=== PATIENT | male | born 1965 | race African-American/Black ===

== ENCOUNTER 2016-08-22 12:40 | Inpatient (IN) | payer OTHER ==
[2016-08-22 15:32] VITALS: BMI 35.2
--- NOTE | 2016-08-22 17:47 | HP ---
CIWA Score - CIWA Score Nausea/Vomitin-Mild Nausea/No Vomiting Muscle Tremors: 4-Moderate,w/Arms Extend Anxiety: 4-Mod. Anxious/Guarded Agitation: 4-Moderately Restless Paroxysmal Sweats: 2 Orientation: 3-Disoriented Date>2 days Tacttile Disturbances: 0-None Auditory Disturbances: 0-None Visual Disturbances: 0-None Headache: 0-None Present CIWA-Ar Total Score: 18 Admission ROS BHS - HPI Chief Complaint: withdrawal sx Allergies/Adverse Reactions: Allergies Allergy/AdvReac Type Severity Reaction Status Date / Time No Known Allergies Allergy Verified 08/22/16 18:19 History of Present Illness: 51 years old male with long history of alcohol dependence, has hypertension arthritis both knees ambulate with walker and depression is admitted to detox Exam Limitations: No Limitations - Ebola screening Have you traveled outside of the country in the last 21 days: No Have you had contact with anyone from an Ebola affected area: No Have you been sick,other than usual withdrawal symptoms: No Do you have a fever: No - Review of Systems Constitutional: Chills, Changes in sleep, Weight Stable EENT: reports: Other (need eye glasses) Respiratory: reports: SOB with Exertion, Productive cough (white) Cardiac: reports: No Symptoms Reported GI: reports: Diarrhea, Nausea, Poor Fluid Intake, Abdominal cramping : reports: No Symptoms Reported Musculoskeletal: reports: Back Pain, Joint Pain, Muscle Pain, Muscle Weakness ( legs), Neck Pain Integumentary: reports: No Symptoms Reported Neuro: reports: Seizure (last episode 06/2016, treated at [facility], treated with unknown name medication), Tremors Endocrine: reports: No Symptoms Reported Hematology: reports: No Symptoms Reported Psychiatric: reports: Judgement Intact, Depressed Other Systems: Reviewed and Negative Patient History - Patient Medical History Hx Anemia: No Hx Asthma: No Hx Chronic Obstructive Pulmonary Disease (COPD): No Hx Cancer: No Hx Cardiac Disorders: No Hx Congestive Heart Failure: No Hx Hypertension: Yes Hx Hypercholesterolemia: No Hx Pacemaker: No HX Cerebrovascular Accident: No Hx Seizures: No Hx Dementia: No Hx Diabetes: No Hx Gastrointestinal Disorders: No Hx Liver Disease: No Hx Genitourinary Disorders: No Hx Sexually Transmitted Disorders: No Hx Renal Disease (ESRD): No Hx Thyroid Disease: No Hx Human Immunodeficiency Virus (HIV): No (last neg 3 mos ago) Hx Hepatitis C: No Hx Depression: Yes Hx Suicide Attempt: No Hx Bipolar Disorder: No Hx Schizophrenia: No - Patient Surgical History Past Surgical History: No - PPD History Previous Implant?: Yes Documented Results: Negative w/proof Implanted On Prior [facility] Admission?: Yes Date: 05/11/15 PPD to be Administered?: Yes - Smoking Cessation Smoking history: Never smoked Have you smoked in the past 12 months: No Hx Chewing Tobacco Use: No Initiated information on smoking cessation: No - Substance & Tx. History Hx Alcohol Use: Yes Hx Substance Use: No Substance Use Type: Alcohol Hx Substance Use Treatment: Yes - Substances Abused Alcohol Route: Oral Frequency: Daily Amount used: 4 pints volka Age of first use: 13 Date of Last Use: 08/22/16 Family Disease History - Family Disease History Family Disease History: Other: Father (no contact) Admission Physical Exam BHS - Vital Signs Vital Signs: Vital Signs - 24 hr 08/22/16 15:28 Temperature 97.8 F Pulse Rate 103 H Respiratory 20 Rate Blood Pressure 168/124 - Physical General Appearance: Yes: Appropriately Dressed, Moderate Distress, Obese, Tremorous, Irritable, Sweating, Anxious HEENTM: Yes: Hearing grossly Normal, Normal ENT Inspection, Normocephalic, Normal Voice Respiratory: Yes: Chest Non-Tender, Lungs Clear, Normal Breath Sounds, No Respiratory Distress, No Accessory Muscle Use Neck: Yes: Supple, Trachea in good position Breast: Yes: Breasts Symetrical Cardiology: Yes: Regular Rhythm, S1, S2, Tachycardia Abdominal: Yes: Non Tender, Soft Genitourinary: Yes: Hesitency, Dribblimg (nephrology appointment 08/2016) Back: Yes: Normal Inspection Musculoskeletal: Yes: Gait Steady (walker), Muscle Pain (both knee), Muscle weakness (left knee) Extremities: Yes: Non-Tender, Tremors, Swelling (left knee - knee brace) Neurological: Yes: Alert, Normal Response, Depressed Affect Integumentary: Yes: Warm Lymphatic: Yes: Within Normal Limits - Diagnostic (1) Arthritis of both knees Current Visit: Yes Status: Chronic Comment: x3 years (2) HTN (hypertension) Current Visit: Yes Status: Acute Qualifiers: Hypertension type: essential hypertension Qualified Code(s): I10 - Essential (primary) hypertension (3) Alcohol dependence with uncomplicated withdrawal Current Visit: Yes Status: Acute (4) Seizure disorder Current Visit: Yes Status: Acute (5) Hyperlipidemia Current Visit: Yes Status: Acute Qualifiers: Hyperlipidemia type: pure hypercholesterolemia Qualified Code(s): E78.00 - Pure hypercholesterolemia, unspecified; E78.0 - Pure hypercholesterolemia (6) Depression (emotion) Current Visit: Yes Status: Suspected Qualifiers: Depression Type: dysthymia Qualified Code(s): F34.1 - Dysthymic disorder (7) Walker as ambulation aid Current Visit: Yes Status: Chronic Comment: x 3 years Cleared for Admission S - Detox or Rehab [facility] Level of Care: Medically Managed Detox Regimen/Protocol: Librium [facility] Breath Alcohol Content Breath Alcohol Content: 0 Urine Drug Screen - Results Drug Screen Negative: Yes
[2016-08-22] MEDS ORDERED: LOPERAMIDE HCL 2 MG CAPSULE PO PRN (17:52)
[2016-08-22] MEDS ORDERED: ACETAMINOPHEN 325 MG TABLET (FP) PO PRN (17:52)
[2016-08-22] MEDS ORDERED: hydrOXYzine PAMOATE 50 MG CAPSULE (FP) PO PRN (17:52)
[2016-08-22] MEDS ORDERED: chlordiazePOXIDE HCL 25 MG CAPSULE PO PRN (17:52)
[2016-08-22] MEDS ORDERED: diphenhydrAMINE HCL 50 MG CAPSULE PO PRN (17:52)
[2016-08-22] MEDS ORDERED: MAG HYDROX/AL HYDROX/SIMETH 30 ML UNIT-DOSE CUP PO PRN (17:52)
[2016-08-22] MEDS ORDERED: MAGNESIUM CITRATE 300 ML BOTTLE PO PRN (17:52)
[2016-08-22] MEDS ORDERED: IBUPROFEN 400 MG TABLET (FP) PO PRN (17:52)
[2016-08-22] MEDS ORDERED: guaiFENesin/D-METHORPHAN HB 10 ML UNIT-DOSE CUPS PO PRN (17:52)
[2016-08-22] MEDS ORDERED: MAGNESIUM HYDROX 2400MG/30ML ORAL SUSPENSION 30 ML CUP PO PRN (17:52)
[2016-08-22] MEDS ORDERED: P-EPHED 60MG/TRIPROLIDI 2.5MG TABLET PO PRN (17:52)
[2016-08-22] MEDS ORDERED: MENTHOL/PHENOL 1 EACH UD MM PRN (17:52)
[2016-08-22] MEDS ORDERED: cloNIDine HCL 0.1 MG TABLET PO PRN (18:07)
[2016-08-22] MEDS ORDERED: chlordiazePOXIDE HCL 25 MG CAPSULE PO ONE (19:00)
[2016-08-22] MEDS: amLODIPine BESYLATE 10 MG TABLET (FP) PO SCH (19:28)
[2016-08-22] MEDS: FLUTICASONE PROP 0.05% 16 GM NASAL SPRAY NS SCH (19:30)
[2016-08-22] MEDS: ATORVASTATIN CA 10 MG TABLET (FP) PO SCH (22:57)
[2016-08-22] MEDS: THIAMINE HCL 100 MG TABLET (FP) PO SCH (22:57)
[2016-08-22] MEDS: chlordiazePOXIDE HCL 25 MG CAPSULE PO SCH (22:57)
[2016-08-22] MEDS: levETIRAcetam 500 MG TABLET (FP) PO SCH (22:57)
[2016-08-22 23:28] LABS: URINE APPEARANCE CLEAR; URINE BILIRUBIN NEGATIVE (NEGATIVE); URINE BLOOD NEGATIVE (NEGATIVE); URINE COLOR YELLOW; URINE GLUCOSE (UA) 1+ (NEGATIVE); URINE KETONE NEGATIVE (NEGATIVE); URINE LEUK ESTERASE NEGATIVE (NEGATIVE); URINE NITRITE NEGATIVE (NEGATIVE); URINE UROBILINOGEN NEGATIVE E.U./dl (0.2-1.0)
[2016-08-23 00:02] LABS: URINE PROTEIN 1+ (NEGATIVE)
[2016-08-23 00:06] LABS: URINE MUCUS RARE; URINE RBC 1 /hpf (0-3); URINE WBC 3 /hpf (3-5)
[2016-08-23] MEDS: chlordiazePOXIDE HCL 25 MG CAPSULE PO SCH ×4 (07:07→22:11)
[2016-08-23] MEDS: levETIRAcetam 500 MG TABLET (FP) PO SCH ×2 (10:13→22:10)
[2016-08-23] MEDS: PRENATAL VITAMINS W/ FOLIC ACID TABLET (FP) PO SCH (10:13)
[2016-08-23] MEDS: amLODIPine BESYLATE 10 MG TABLET (FP) PO SCH (10:13)
[2016-08-23] MEDS: FLUTICASONE PROP 0.05% 16 GM NASAL SPRAY NS SCH (10:14)
[2016-08-23 10:21] LABS: MCH 27.5 pg (25.7-33.7); MCHC 32.1 g/dl (32.0-35.9); MEAN CELL VOLUME 85.5 fl (80-96); MEAN PLT VOLUME 9.5 fl (7.5-11.1); PLATELET COUNT 181 K/MM3 (134-434); RDW 15.7 % (11.9-15.9); WHITE BLOOD COUNT 5.4 K/mm3 (4.0-10.0)
[2016-08-23 10:58] LABS: ALBUMIN 3.9 g/dl (3.4-5.0); CALCIUM 8.8 mg/dL (8.5-10.1)
[2016-08-23 11:03] LABS: ALK PHOS 72 U/L (45-117); ANION GAP 11 (8-16); BILIRUBIN,TOTAL 0.6 mg/dL (0.2-1.0); CO2 27 mmol/L (21-32); CREATININE 1.1 mg/dL (0.7-1.3); GLUCOSE,RANDOM 134 mg/dL (74-106); SGOT/AST 29 U/L (15-37); SGPT/ALT 38 U/L (12-78); TOT PROT 7.8 g/dl (6.4-8.2)
[2016-08-23] MEDS ORDERED: POTASSIUM CHLORIDE TABS 20 MEQ TABLET.ER (FP) PO ONE (12:11)
--- NOTE | 2016-08-23 12:11 | PN ---
S CIWA - CIWA Score Nausea/Vomitin Muscle Tremors: 3 Anxiety: 3 Agitation: 3 Paroxysmal Sweats: 1-Minimal Palms Moist Orientation: 0-Oriented Tacttile Disturbances: 1-Very Mild Itch/Numbness Auditory Disturbances: 1-Very Mild Visual Disturbances: 1-Very Mild Sensitivity Headache: 2-Mild CIWA-Ar Total Score: 18 BHS Progress Note (SOAP) Subjective: ALERT,IRRITABLE,ANXIOUS,INTERRUPTED SLEEP,TREMOR Objective: 08/23/16 12:07 Vital Signs Temperature 97.5 F L 08/23/16 09:58 Pulse Rate 93 H 08/23/16 09:58 Respiratory Rate 20 08/23/16 09:58 Blood Pressure 124/90 08/23/16 09:58 O2 Sat by Pulse Oximetry (%) EKG NSR RATE 85 NO CHEST PAIN,NO SOB,NO DIZZINESS Laboratory Last Values WBC 5.4 K/mm3 (4.0-10.0) D 08/23/16 07:50 RBC 5.58 M/mm3 (4.00-5.60) 08/23/16 07:50 Hgb 15.3 GM/dL (11.7-16.9) 08/23/16 07:50 Hct 47.7 % (35.4-49) 08/23/16 07:50 MCV 85.5 fl (80-96) 08/23/16 07:50 MCHC 32.1 g/dl (32.0-35.9) 08/23/16 07:50 RDW 15.7 % (11.9-15.9) 08/23/16 07:50 Plt Count 181 K/MM3 (134-434) D 08/23/16 07:50 MPV 9.5 fl (7.5-11.1) 08/23/16 07:50 Sodium 137 mmol/L (136-145) 08/23/16 07:50 Potassium 3.4 mmol/L (3.5-5.1) L 08/23/16 07:50 Chloride 99 mmol/L (98-107) 08/23/16 07:50 Carbon Dioxide 27 mmol/L (21-32) 08/23/16 07:50 Anion Gap 11 (8-16) 08/23/16 07:50 BUN 9 mg/dL (7-18) D 08/23/16 07:50 Creatinine 1.1 mg/dL (0.7-1.3) D 08/23/16 07:50 Creat Clearance w eGFR > 60 (>60) 08/23/16 07:50 Random Glucose 134 mg/dL (74-106) H D 08/23/16 07:50 Calcium 8.8 mg/dL (8.5-10.1) 08/23/16 07:50 Total Bilirubin 0.6 mg/dL (0.2-1.0) 08/23/16 07:50 AST 29 U/L (15-37) 08/23/16 07:50 ALT 38 U/L (12-78) 08/23/16 07:50 Alkaline Phosphatase 72 U/L (45-117) 08/23/16 07:50 Total Protein 7.8 g/dl (6.4-8.2) 08/23/16 07:50 Albumin 3.9 g/dl (3.4-5.0) 08/23/16 07:50 Urine Color Yellow 08/22/16 19:34 Urine Appearance Clear 08/22/16 19:34 Urine pH 7.0 (5.0-8.0) 08/22/16 19:34 Ur Specific [place] 1.018 (1.001-1.035) 08/22/16 19:34 Urine Protein 1+ (NEGATIVE) H 08/22/16 19:34 Urine Glucose (UA) 1+ (NEGATIVE) H 08/22/16 19:34 Urine Ketones Negative (NEGATIVE) 08/22/16 19:34 Urine Blood Negative (NEGATIVE) 08/22/16 19:34 Urine Nitrite Negative (NEGATIVE) 08/22/16 19:34 Urine Bilirubin Negative (NEGATIVE) 08/22/16 19:34 Urine Urobilinogen Negative E.U./dl (0.2-1.0) 08/22/16 19:34 Ur Leukocyte Esterase Negative (NEGATIVE) 08/22/16 19:34 Urine RBC 1 /hpf (0-3) 08/22/16 19:34 Urine WBC 3 /hpf (3-5) 08/22/16 19:34 Ur Epithelial Cells Rare /hpf (FEW) 08/22/16 19:34 Urine Mucus Rare 08/22/16 19:34 LABS PENDING Assessment: 08/23/16 12:09 WITHDRAWAL SYMPTOM Plan: CONTINUE DETOX,KDUR 20 MEQ PO DAILY K IS 3.4,INITIAL GLUCOSE IS 134,BGM MONITORING
--- NOTE | 2016-08-23 12:22 | CONSULT ---
[facility] Psychiatric Consult - Data Date of interview: 08/23/16 Admission source: [facility] Identifying data: Readmission to [facility] for this 51 y/o AA male seeking detox treatment for alcohol dependence.Patient is ,a father of three, domiciled,disabled and awaiting approval for SSI benefits. Substance Abuse History: - Smoking Cessation. Smoking history: Never smoked. Have you smoked in the past 12 months: No. Hx Chewing Tobacco Use: No. Initiated information on smoking cessation: No. - Substance & Tx. History. Hx Alcohol Use: Yes. Hx Substance Use: No. Substance Use Type: Alcohol. Hx Substance Use Treatment: Yes. - Substances Abused. Alcohol. Route: Oral. Frequency: Daily. Amount used: 4 pints volka. Age of first use: 13. Date of Last Use: 08/22/16 Medical History: Hypertension,seizure disorder,pre-diabetes,dyslipidemia and severe arthritis (both knees).Patient uses a walker for ambulation. Psychiatric History: No reported history of psychiatric hospitalizations.Diagnosed with MDD.Prescribed risperdal 2 mg/hs + zoloft 50 mg/ day (verified by pharmacy claims of 06/23/16 @ [employer]).Outpatient psychiatric services are rendered at the [facility] in [facility].Mr Christopher is a clear/reliable historian.Denies history of suicide attempts. Physical/Sexual Abuse/Trauma History: Patient denies. Additional Comment: Drug Screen Negative: Yes .Noted. Mental Status Exam - Mental Status Exam Alert and Oriented to: Time, Place, Person Cognitive Function: Good Patient Appearance: Well Groomed (short stature,obese) Mood: Hopeful, Euthymic Affect: Appropriate, Normal Range Patient Behavior: Fatigued, Appropriate, Cooperative Speech Pattern: Clear, Appropriate Voice Loudness: Normal Thought Process: Goal Oriented Thought Disorder: Not Present Hallucinations: Denies Suicidal Ideation: Denies Homicidal Ideation: Denies Insight/Judgement: Fair Sleep: Fair Appetite: Good Gait/Station: Other (uses a walker to move around.) Psychiatric Findings - Problem List ([place] 1, 2,3) (1) Alcohol dependence with uncomplicated withdrawal Current Visit: Yes Status: Acute (2) MDD (major depressive disorder) Current Visit: Yes Status: Chronic (3) HTN (hypertension) Current Visit: Yes Status: Chronic Qualifiers: Hypertension type: essential hypertension Qualified Code(s): I10 - Essential (primary) hypertension (4) Hyperlipidemia Current Visit: Yes Status: Chronic Qualifiers: Hyperlipidemia type: pure hypercholesterolemia Qualified Code(s): E78.00 - Pure hypercholesterolemia, unspecified; E78.0 - Pure hypercholesterolemia (5) Seizure disorder Current Visit: Yes Status: Chronic (6) Arthritis of both knees Current Visit: Yes Status: Chronic Comment: x3 years (7) Abnormal gait Current Visit: Yes Status: Chronic (8) Walker as ambulation aid Current Visit: Yes Status: Chronic Comment: x 3 years - Initial Treatment Plan Initial Treatment Plan: Psychoeducation.Detoxification.Medications : zoloft 50 mg po daily + risperdal 1 mg po bid.Side effects/benefits discussed with the patient.Made aware of risk of EPS (akathisia,akinesia,dystonia,dyskinesias), neuroleptic malignant syndrome,endocrine complications (sexual impotence, decreased libido,gynecomastia,galactorrhea) possible with the use of risperdal and suicidal ideation,sexual dysfunction (zoloft).Patient reports no prior adverse events from taking these two drugs.Consent (verbal) provided by patient.Observation.
[2016-08-23] MEDS: ATORVASTATIN CA 10 MG TABLET (FP) PO SCH (22:10)
[2016-08-23] MEDS: THIAMINE HCL 100 MG TABLET (FP) PO SCH (22:10)
[2016-08-23] MEDS: risperiDONE 1 MG TABLET (FP) PO SCH (22:13)
[2016-08-24] MEDS: chlordiazePOXIDE HCL 25 MG CAPSULE PO SCH ×3 (05:01→17:29)
[2016-08-24] MEDS: FLUTICASONE PROP 0.05% 16 GM NASAL SPRAY NS SCH (11:45)
[2016-08-24] MEDS: POTASSIUM CHLORIDE TABS 20 MEQ TABLET.ER (FP) PO SCH (11:46)
[2016-08-24] MEDS: PRENATAL VITAMINS W/ FOLIC ACID TABLET (FP) PO SCH (11:46)
[2016-08-24] MEDS: levETIRAcetam 500 MG TABLET (FP) PO SCH ×2 (11:46→22:20)
[2016-08-24] MEDS: risperiDONE 1 MG TABLET (FP) PO SCH ×2 (11:47→22:20)
[2016-08-24] MEDS: amLODIPine BESYLATE 10 MG TABLET (FP) PO SCH (11:47)
[2016-08-24] MEDS: SERTRALINE HCL 50 MG TABLET (FP) PO SCH (11:47)
--- NOTE | 2016-08-24 12:46 | PN ---
S CIWA - CIWA Score Nausea/Vomitin Muscle Tremors: 3 Anxiety: 3 Agitation: 2 Paroxysmal Sweats: 1-Minimal Palms Moist Orientation: 0-Oriented Tacttile Disturbances: 1-Very Mild Itch/Numbness Auditory Disturbances: 1-Very Mild Visual Disturbances: 1-Very Mild Sensitivity Headache: 2-Mild CIWA-Ar Total Score: 17 BHS Progress Note (SOAP) Subjective: ALERT,IRRITABLE,ANXIOUS,INTERRUPTED SLEEP,PAIN IN THE BODY Objective: 08/24/16 12:44 Vital Signs Temperature 97.5 F L 08/24/16 06:09 Pulse Rate 100 H 08/24/16 10:50 Respiratory Rate 20 08/24/16 10:50 Blood Pressure 133/89 08/24/16 10:50 O2 Sat by Pulse Oximetry (%) Laboratory Last Values WBC 5.4 K/mm3 (4.0-10.0) D 08/23/16 07:50 RBC 5.58 M/mm3 (4.00-5.60) 08/23/16 07:50 Hgb 15.3 GM/dL (11.7-16.9) 08/23/16 07:50 Hct 47.7 % (35.4-49) 08/23/16 07:50 MCV 85.5 fl (80-96) 08/23/16 07:50 MCHC 32.1 g/dl (32.0-35.9) 08/23/16 07:50 RDW 15.7 % (11.9-15.9) 08/23/16 07:50 Plt Count 181 K/MM3 (134-434) D 08/23/16 07:50 MPV 9.5 fl (7.5-11.1) 08/23/16 07:50 Sodium 137 mmol/L (136-145) 08/23/16 07:50 Potassium 3.4 mmol/L (3.5-5.1) L 08/23/16 07:50 Chloride 99 mmol/L (98-107) 08/23/16 07:50 Carbon Dioxide 27 mmol/L (21-32) 08/23/16 07:50 Anion Gap 11 (8-16) 08/23/16 07:50 BUN 9 mg/dL (7-18) D 08/23/16 07:50 Creatinine 1.1 mg/dL (0.7-1.3) D 08/23/16 07:50 Creat Clearance w eGFR > 60 (>60) 08/23/16 07:50 POC Glucometer 111 UNITS (()) 08/24/16 07:13 Random Glucose 134 mg/dL (74-106) H D 08/23/16 07:50 Calcium 8.8 mg/dL (8.5-10.1) 08/23/16 07:50 Total Bilirubin 0.6 mg/dL (0.2-1.0) 08/23/16 07:50 AST 29 U/L (15-37) 08/23/16 07:50 ALT 38 U/L (12-78) 08/23/16 07:50 Alkaline Phosphatase 72 U/L (45-117) 08/23/16 07:50 Total Protein 7.8 g/dl (6.4-8.2) 08/23/16 07:50 Albumin 3.9 g/dl (3.4-5.0) 08/23/16 07:50 Urine Color Yellow 08/22/16 19:34 Urine Appearance Clear 08/22/16 19:34 Urine pH 7.0 (5.0-8.0) 08/22/16 19:34 Ur Specific [place] 1.018 (1.001-1.035) 08/22/16 19:34 Urine Protein 1+ (NEGATIVE) H 08/22/16 19:34 Urine Glucose (UA) 1+ (NEGATIVE) H 08/22/16 19:34 Urine Ketones Negative (NEGATIVE) 08/22/16 19:34 Urine Blood Negative (NEGATIVE) 08/22/16 19:34 Urine Nitrite Negative (NEGATIVE) 08/22/16 19:34 Urine Bilirubin Negative (NEGATIVE) 08/22/16 19:34 Urine Urobilinogen Negative E.U./dl (0.2-1.0) 08/22/16 19:34 Ur Leukocyte Esterase Negative (NEGATIVE) 08/22/16 19:34 Urine RBC 1 /hpf (0-3) 08/22/16 19:34 Urine WBC 3 /hpf (3-5) 08/22/16 19:34 Ur Epithelial Cells Rare /hpf (FEW) 08/22/16 19:34 Urine Mucus Rare 08/22/16 19:34 RPR Titer Nonreactive (NONREACTIVE) 08/23/16 07:50 Assessment: 08/24/16 12:45 CONTINUE DETOX,BGM 111 Plan: CONTINUE DETOX,ON K REPLACEMENT
[2016-08-24] MEDS: THIAMINE HCL 100 MG TABLET (FP) PO SCH (22:20)
[2016-08-24] MEDS: ATORVASTATIN CA 10 MG TABLET (FP) PO SCH (22:20)
[2016-08-24] MEDS: chlordiazePOXIDE 5 MG CAPSULE PO SCH (22:20)
[2016-08-25] MEDS: chlordiazePOXIDE 5 MG CAPSULE PO SCH ×3 (05:40→17:36)
--- NOTE | 2016-08-25 10:07 | PN ---
BHS Progress Note (SOAP) Subjective: I need supplement I get hungry chronic body aches Objective: 08/25/16 10:07 Vital Signs Temperature 95.9 F L 08/25/16 06:00 Pulse Rate 98 H 08/25/16 06:00 Respiratory Rate 18 08/25/16 06:00 Blood Pressure 149/80 08/25/16 06:00 O2 Sat by Pulse Oximetry (%) awake/alert ambulating with rollator no acute distress Assessment: 08/25/16 10:08 withdrawal sx Plan: continue detox increase fluids d/c in am
[2016-08-25] MEDS: SERTRALINE HCL 50 MG TABLET (FP) PO SCH (10:53)
[2016-08-25] MEDS: PRENATAL VITAMINS W/ FOLIC ACID TABLET (FP) PO SCH (10:53)
[2016-08-25] MEDS: amLODIPine BESYLATE 10 MG TABLET (FP) PO SCH (10:53)
[2016-08-25] MEDS: POTASSIUM CHLORIDE TABS 20 MEQ TABLET.ER (FP) PO SCH (10:53)
[2016-08-25] MEDS: FLUTICASONE PROP 0.05% 16 GM NASAL SPRAY NS SCH (10:53)
[2016-08-25] MEDS: levETIRAcetam 500 MG TABLET (FP) PO SCH ×2 (10:53→22:17)
[2016-08-25] MEDS: risperiDONE 1 MG TABLET (FP) PO SCH ×2 (10:54→22:17)
[2016-08-25] MEDS: chlordiazePOXIDE HCL 10 MG CAPSULE PO SCH (22:17)
[2016-08-25] MEDS: THIAMINE HCL 100 MG TABLET (FP) PO SCH (22:17)
[2016-08-25] MEDS: ATORVASTATIN CA 10 MG TABLET (FP) PO SCH (22:17)
[2016-08-26] MEDS: chlordiazePOXIDE HCL 10 MG CAPSULE PO SCH (05:56)
[2016-08-26 06:27] VITALS: BP 137/83; PULSE 106; TEMP 97.6
--- NOTE | 2016-08-26 08:40 | DS ---
[facility] Detox Discharge Summary Admission Date: 08/22/16 Discharge Date: 08/26/16 - History Present History: Alcohol Dependence - Physical Exam Results Vital Signs: Vital Signs Temperature 97.6 F 08/26/16 06:27 Pulse Rate 106 H 08/26/16 06:27 Respiratory Rate 20 08/26/16 06:27 Blood Pressure 137/83 08/26/16 06:27 O2 Sat by Pulse Oximetry (%) - Treatment Hospital Course: Detox Protocol Followed, Detoxed Safely, Responded well, Discharged Condition Good, Rehab Referral Accepted - Medication Discharge Medications: Ambulatory Orders Enalapril Maleate [Vasotec -] 20 mg PO DAILY 05/09/15 Risperidone [Risperdal -] 2 mg PO HS #30 tablet 05/10/15 Sertraline HCl [Zoloft -] 50 mg PO HS #30 tablet 05/10/15 Risperidone [Risperdal] 2 mg PO HS #30 tablet 08/23/16 Sertraline HCl [Zoloft -] 50 mg PO DAILY #30 tablet 08/23/16 - Diagnosis (1) Alcohol dependence with uncomplicated withdrawal Current Visit: Yes Status: Chronic (2) Abnormal gait Current Visit: Yes Status: Chronic (3) Arthritis of both knees Current Visit: Yes Status: Chronic (4) HTN (hypertension) Current Visit: Yes Status: Chronic Qualifiers: Hypertension type: essential hypertension Qualified Code(s): I10 - Essential (primary) hypertension (5) Hyperlipidemia Current Visit: Yes Status: Chronic Qualifiers: Hyperlipidemia type: pure hypercholesterolemia Qualified Code(s): E78.00 - Pure hypercholesterolemia, unspecified; E78.0 - Pure hypercholesterolemia (6) MDD (major depressive disorder) Current Visit: Yes Status: Chronic (7) Seizure disorder Current Visit: Yes Status: Chronic (8) Walker as ambulation aid Current Visit: Yes Status: Chronic (9) Depression (emotion) Current Visit: Yes Status: Suspected Qualifiers: Depression Type: dysthymia Qualified Code(s): F34.1 - Dysthymic disorder - AMA Did Patient Leave Against Medical Advice: No
[2016-08-26] MEDS: amLODIPine BESYLATE 10 MG TABLET (FP) PO SCH (10:07)
[2016-08-26] MEDS: FLUTICASONE PROP 0.05% 16 GM NASAL SPRAY NS SCH (10:07)
[2016-08-26] MEDS: levETIRAcetam 500 MG TABLET (FP) PO SCH (10:07)
[2016-08-26] MEDS: SERTRALINE HCL 50 MG TABLET (FP) PO SCH (10:07)
[2016-08-26] MEDS: PRENATAL VITAMINS W/ FOLIC ACID TABLET (FP) PO SCH (10:07)
[2016-08-26] MEDS: POTASSIUM CHLORIDE TABS 20 MEQ TABLET.ER (FP) PO SCH (10:07)
[2016-08-26] MEDS: risperiDONE 1 MG TABLET (FP) PO SCH (10:08)
--- NOTE | 2016-08-26 23:41 | EKG ---
Test Reason : Blood Pressure : / mmHG Vent. Rate : 085 BPM Atrial Rate : 085 BPM P-R Int : 166 ms QRS Dur : 076 ms QT Int : 410 ms P-R-T Axes : 073 050 060 degrees QTc Int : 487 ms NORMAL SINUS RHYTHM POSSIBLE LEFT ATRIAL ENLARGEMENT LEFT VENTRICULAR HYPERTROPHY NONSPECIFIC T WAVE ABNORMALITY PROLONGED QT ABNORMAL ECG NO PREVIOUS ECGS AVAILABLE Confirmed by WOOD MCMULLEN MD ([id number]) on 08/26/2016 11:40:37 PM Referred By: Confirmed By:WOOD MCMULLEN MD
== END 2016-08-26 10:21 | disposition other institution (70) | DRG 775 ==
LOC: YASAS 12:40 → Y6N 18:30
PROVIDERS: ADMIT Internal Medicine; ATTEND Internal Medicine
PROC: HZ2ZZZZ Detoxification Services for Substance Abuse Treatment (ICD-10-PCS; principal; 2016-08-26)
DX: F10.230 Alcohol dependence with withdrawal, uncomplicated (principal); F34.1 Dysthymic disorder; F33.9 Major depressive disorder, recurrent, unspecified; G40.909 Epilepsy, unspecified, not intractable, without status epilepticus; E78.00 Pure hypercholesterolemia, unspecified; R26.89 Other abnormalities of gait and mobility; R26.2 Difficulty in walking, not elsewhere classified; M13.862 Other specified arthritis, left knee; M13.861 Other specified arthritis, right knee
CPT/HCPCS: 36415; 80053; 81003; 81015; 85027; 86593; 93005; 93010; J2794

== ENCOUNTER 2016-08-26 10:25 | Inpatient (IN) | payer OTHER ==
[2016-08-26 11:05] VITALS: BMI 36.8
[2016-08-26] MEDS ORDERED: MAG HYDROX/AL HYDROX/SIMETH 30 ML UNIT-DOSE CUP PO PRN (11:24)
[2016-08-26] MEDS ORDERED: MAGNESIUM CITRATE 300 ML BOTTLE PO PRN (11:24)
[2016-08-26] MEDS ORDERED: guaiFENesin/D-METHORPHAN HB 10 ML UNIT-DOSE CUPS PO PRN (11:24)
[2016-08-26] MEDS ORDERED: MAGNESIUM HYDROX 2400MG/30ML ORAL SUSPENSION 30 ML CUP PO PRN (11:24)
[2016-08-26] MEDS ORDERED: P-EPHED 60MG/TRIPROLIDI 2.5MG TABLET PO PRN (11:24)
[2016-08-26] MEDS ORDERED: MENTHOL/PHENOL 1 EACH UD MM PRN (11:24)
[2016-08-26] MEDS ORDERED: LOPERAMIDE HCL 2 MG CAPSULE PO PRN (11:24)
--- NOTE | 2016-08-26 12:10 | HP ---
Psychiatrist Admission - Data Date of interview: 08/26/16 Admission source: 6N Identifying data: [facility] for [facility] divorce Black male, father of 3 children, unemployed on public assistance, domiciled living at [facility] seeking rehsb tretment for alcohol Medical History: Significant for HTN, Hyperlipidemia, Arthritis both knees, Seizure Disorder Psychiatric History: Reports that his first psychiatric contact was in 1997 when he was diagnosed with depression by a psychiatrist at the [facility] in [place]. Reports that he was prescribed medication but does not recall name of that medication. Reports that he has been receiving psychiatric outpatient services seen. Current, he receives psychiatric outpatient services at [facility] and he is prescribed Zoloft 50 mg po daily and Risperdal 2 mg po HS. Reports one previous psychiatric hospitalization in 2014 at [facility] for depression. At present, reports feeling mildly anxious. However denies feeling depressed as well as SI/HI Physical/Sexual Abuse/Trauma History: Denies history of emotional. physical or sexual abuse as well as DV relationship Additional Comment: Reports history of 5 previous misdemeanor arrests. Denies being on probation at present Vital Signs: Vital Signs - 24 hr 08/26/16 10:47 Temperature 99 F Pulse Rate 99 H Respiratory 18 Rate Blood Pressure 130/91 Allergies/Adverse Reactions: Allergies Allergy/AdvReac Type Severity Reaction Status Date / Time No Known Allergies Allergy Verified 08/26/16 10:39 Date of last physical exam: 08/22/16 Concur with the findings of this exam: Yes - Substance Abuse/Tx History Hx Alcohol Use: Yes Hx Substance Use: No Substance Use Type: Alcohol (Started drinking alcohol at age 13, consumes 4 pints of vodka daily. Last drink on 08/22/16) Hx Substance Use Treatment: Yes (3 previous inpt detox @ [facility]) - Admission Criteria Previous failed treatment: No Poor recovery environment: Yes Comorbidities: Yes Lacks judgement: Yes Mental Status Exam - Mental Status Exam Alert and Oriented to: Time, Place, Person Cognitive Function: Fair Patient Appearance: Well Groomed Mood: Anxious Affect: Appropriate Patient Behavior: Cooperative Speech Pattern: Clear Voice Loudness: Normal Thought Process: Intact Thought Disorder: Not Present Hallucinations: Denies Suicidal Ideation: Denies Homicidal Ideation: Denies Insight/Judgement: Poor Sleep: Well Appetite: Good Muscle strength/Tone: Normal Gait/Station: Other (uses walker for ambulation) Psychiatric Findings - Problem List ([place] 1, 2,3) (1) Alcohol dependence with uncomplicated withdrawal Current Visit: No Status: Chronic (2) MDD (major depressive disorder) Current Visit: No Status: Chronic (3) HTN (hypertension) Current Visit: No Status: Chronic Qualifiers: Hypertension type: essential hypertension Qualified Code(s): I10 - Essential (primary) hypertension (4) Hyperlipidemia Current Visit: No Status: Chronic Qualifiers: Hyperlipidemia type: pure hypercholesterolemia Qualified Code(s): E78.00 - Pure hypercholesterolemia, unspecified; E78.0 - Pure hypercholesterolemia (5) Seizure disorder Current Visit: No Status: Chronic - Initial Treatment Plan Initial Treatment Plan: 1) Continue Zoloft 50 mg po daily and Risperdal 2 mg po HS. 2) Monitor progress
--- NOTE | 2016-08-26 16:30 | HP ---
[facility] Rehab Assess/Revision - Admission History Admitted to Rehab from: [facility] [address] [place] Date of Admission to Rehab: 08/26/16 - Vital signs Vital Signs: Vital Signs Period Temp Pulse Resp BP Sys/Hendrix Pulse Ox Last 24 Hr 99 F 99 18 130/91 - Findings Detox History & Physical reviewed: Yes Concur with findings: Yes Comments/Additional Findings: transferred from detox to rehab admission as per protocol
[2016-08-26] MEDS: ATORVASTATIN CA 10 MG TABLET (FP) PO SCH (21:58)
[2016-08-26] MEDS: risperiDONE 2 MG TABLET PO SCH (21:58)
[2016-08-26] MEDS: THIAMINE HCL 100 MG TABLET (FP) PO SCH (21:58)
[2016-08-26] MEDS: levETIRAcetam 500 MG TABLET (FP) PO SCH (21:59)
[2016-08-26] MEDS ORDERED: PT OWN MED DRAWER 7, Y5N ONE (22:01)
--- NOTE | 2016-08-27 06:35 | HP ---
Psychiatrist Admission - Data Date of interview: 08/27/16 Admission source: 6N Identifying data: [facility] for this 51 years old Black male, father of 3 children, unemployed on SSI, domiciled seeking rehab treatment for alcohol Vital Signs: Vital Signs - 24 hr 08/26/16 08/27/16 10:47 00:30 Temperature 99 F Pulse Rate 99 H Respiratory 18 20 Rate Blood Pressure 130/91 Allergies/Adverse Reactions: Allergies Allergy/AdvReac Type Severity Reaction Status Date / Time No Known Allergies Allergy Verified 08/26/16 10:39 Psychiatric Findings - Problem List ([place] 1, 2,3) (1) Alcohol dependence with uncomplicated withdrawal Current Visit: No Status: Chronic (2) MDD (major depressive disorder) Current Visit: No Status: Chronic (3) HTN (hypertension) Current Visit: No Status: Chronic Qualifiers: Hypertension type: essential hypertension Qualified Code(s): I10 - Essential (primary) hypertension (4) Hyperlipidemia Current Visit: No Status: Chronic Qualifiers: Hyperlipidemia type: pure hypercholesterolemia Qualified Code(s): E78.00 - Pure hypercholesterolemia, unspecified; E78.0 - Pure hypercholesterolemia (5) Seizure disorder Current Visit: No Status: Chronic
[2016-08-27] MEDS: levETIRAcetam 500 MG TABLET (FP) PO SCH ×2 (09:54→22:52)
[2016-08-27] MEDS: PRENATAL VITAMINS W/ FOLIC ACID TABLET (FP) PO SCH (09:54)
[2016-08-27] MEDS: ENALAPRIL MALEATE 10 MG TABLET (FP) PO SCH (09:54)
[2016-08-27] MEDS: amLODIPine BESYLATE 10 MG TABLET (FP) PO SCH (09:54)
[2016-08-27] MEDS: SERTRALINE HCL 50 MG TABLET (FP) PO SCH (09:54)
[2016-08-27] MEDS ORDERED: PT OWN MED DRAWER 7, Y5N ONE ×2 (09:55→10:41)
[2016-08-27] MEDS: FLUTICASONE PROP 0.05% 16 GM NASAL SPRAY NS SCH (10:37)
[2016-08-27 12:14] LABS: HIV 1 & 2 AB NEGATIVE; HIV 1 AGp24 NEGATIVE
[2016-08-27] MEDS: risperiDONE 2 MG TABLET PO SCH (22:52)
[2016-08-27] MEDS: THIAMINE HCL 100 MG TABLET (FP) PO SCH (22:52)
[2016-08-27] MEDS: ATORVASTATIN CA 10 MG TABLET (FP) PO SCH (22:52)
[2016-08-28] MEDS ORDERED: PT OWN MED DRAWER 7, Y5N ONE (08:45)
[2016-08-28] MEDS: FLUTICASONE PROP 0.05% 16 GM NASAL SPRAY NS SCH (09:35)
[2016-08-28] MEDS: ENALAPRIL MALEATE 10 MG TABLET (FP) PO SCH (09:36)
[2016-08-28] MEDS: levETIRAcetam 500 MG TABLET (FP) PO SCH ×2 (09:36→21:21)
[2016-08-28] MEDS: SERTRALINE HCL 50 MG TABLET (FP) PO SCH (09:36)
[2016-08-28] MEDS: amLODIPine BESYLATE 10 MG TABLET (FP) PO SCH (09:36)
[2016-08-28] MEDS: PRENATAL VITAMINS W/ FOLIC ACID TABLET (FP) PO SCH (09:36)
[2016-08-28] MEDS: risperiDONE 2 MG TABLET PO SCH (21:21)
[2016-08-28] MEDS: THIAMINE HCL 100 MG TABLET (FP) PO SCH (21:21)
[2016-08-28] MEDS: ATORVASTATIN CA 10 MG TABLET (FP) PO SCH (21:21)
[2016-08-29] MEDS: ENALAPRIL MALEATE 10 MG TABLET (FP) PO SCH (09:52)
[2016-08-29] MEDS: PRENATAL VITAMINS W/ FOLIC ACID TABLET (FP) PO SCH (09:52)
[2016-08-29] MEDS: levETIRAcetam 500 MG TABLET (FP) PO SCH ×2 (09:53→21:44)
[2016-08-29] MEDS: FLUTICASONE PROP 0.05% 16 GM NASAL SPRAY NS SCH (09:53)
[2016-08-29] MEDS: amLODIPine BESYLATE 10 MG TABLET (FP) PO SCH (09:53)
[2016-08-29] MEDS: SERTRALINE HCL 50 MG TABLET (FP) PO SCH (09:53)
[2016-08-29] MEDS: THIAMINE HCL 100 MG TABLET (FP) PO SCH (21:44)
[2016-08-29] MEDS: risperiDONE 2 MG TABLET PO SCH (21:44)
[2016-08-29] MEDS: ATORVASTATIN CA 10 MG TABLET (FP) PO SCH (21:44)
[2016-08-30] MEDS: amLODIPine BESYLATE 10 MG TABLET (FP) PO SCH (09:49)
[2016-08-30] MEDS: ENALAPRIL MALEATE 10 MG TABLET (FP) PO SCH (09:49)
[2016-08-30] MEDS: FLUTICASONE PROP 0.05% 16 GM NASAL SPRAY NS SCH (09:49)
[2016-08-30] MEDS: levETIRAcetam 500 MG TABLET (FP) PO SCH ×2 (09:50→21:35)
[2016-08-30] MEDS: PRENATAL VITAMINS W/ FOLIC ACID TABLET (FP) PO SCH (09:50)
[2016-08-30] MEDS: SERTRALINE HCL 50 MG TABLET (FP) PO SCH (09:50)
[2016-08-30] MEDS: risperiDONE 2 MG TABLET PO SCH (21:35)
[2016-08-30] MEDS: THIAMINE HCL 100 MG TABLET (FP) PO SCH (21:35)
[2016-08-30] MEDS: ATORVASTATIN CA 10 MG TABLET (FP) PO SCH (21:35)
[2016-08-30] MEDS: IBUPROFEN 400 MG TABLET (FP) PO PRN (21:36)
[2016-08-31] MEDS: levETIRAcetam 500 MG TABLET (FP) PO SCH ×2 (09:54→21:48)
[2016-08-31] MEDS: SERTRALINE HCL 50 MG TABLET (FP) PO SCH (09:54)
[2016-08-31] MEDS: FLUTICASONE PROP 0.05% 16 GM NASAL SPRAY NS SCH (09:54)
[2016-08-31] MEDS: amLODIPine BESYLATE 10 MG TABLET (FP) PO SCH (09:54)
[2016-08-31] MEDS: PRENATAL VITAMINS W/ FOLIC ACID TABLET (FP) PO SCH (09:54)
[2016-08-31] MEDS: ENALAPRIL MALEATE 10 MG TABLET (FP) PO SCH (09:54)
[2016-08-31] MEDS: ATORVASTATIN CA 10 MG TABLET (FP) PO SCH (21:47)
[2016-08-31] MEDS: risperiDONE 2 MG TABLET PO SCH (21:47)
[2016-08-31] MEDS: THIAMINE HCL 100 MG TABLET (FP) PO SCH (21:47)
[2016-09-01] MEDS ORDERED: PT OWN MED DRAWER 7, Y5N ONE (08:41)
[2016-09-01] MEDS: amLODIPine BESYLATE 10 MG TABLET (FP) PO SCH (09:59)
[2016-09-01] MEDS: levETIRAcetam 500 MG TABLET (FP) PO SCH ×2 (09:59→21:28)
[2016-09-01] MEDS: ENALAPRIL MALEATE 10 MG TABLET (FP) PO SCH (09:59)
[2016-09-01] MEDS: FLUTICASONE PROP 0.05% 16 GM NASAL SPRAY NS SCH (09:59)
[2016-09-01] MEDS: PRENATAL VITAMINS W/ FOLIC ACID TABLET (FP) PO SCH (09:59)
[2016-09-01] MEDS: SERTRALINE HCL 50 MG TABLET (FP) PO SCH (09:59)
[2016-09-01] MEDS ORDERED: LIDOCAINE 5% TOPICAL PATCH TP ONE (16:45)
[2016-09-01] MEDS: ATORVASTATIN CA 10 MG TABLET (FP) PO SCH (21:28)
[2016-09-01] MEDS: risperiDONE 2 MG TABLET PO SCH (21:28)
[2016-09-01] MEDS: THIAMINE HCL 100 MG TABLET (FP) PO SCH (21:29)
[2016-09-02] MEDS ORDERED: PT OWN MED DRAWER 7, Y5N ONE (08:54)
[2016-09-02] MEDS: ENALAPRIL MALEATE 10 MG TABLET (FP) PO SCH (10:05)
[2016-09-02] MEDS: SERTRALINE HCL 50 MG TABLET (FP) PO SCH (10:05)
[2016-09-02] MEDS: levETIRAcetam 500 MG TABLET (FP) PO SCH ×2 (10:05→21:54)
[2016-09-02] MEDS: FLUTICASONE PROP 0.05% 16 GM NASAL SPRAY NS SCH (10:05)
[2016-09-02] MEDS: amLODIPine BESYLATE 10 MG TABLET (FP) PO SCH (10:05)
[2016-09-02] MEDS: PRENATAL VITAMINS W/ FOLIC ACID TABLET (FP) PO SCH (10:05)
[2016-09-02] MEDS: LIDOCAINE 5% TOPICAL PATCH TP SCH (10:06)
[2016-09-02] MEDS: THIAMINE HCL 100 MG TABLET (FP) PO SCH (21:53)
[2016-09-02] MEDS: ATORVASTATIN CA 10 MG TABLET (FP) PO SCH (21:53)
[2016-09-02] MEDS: risperiDONE 2 MG TABLET PO SCH (21:54)
[2016-09-02] MEDS: ACETAMINOPHEN 325 MG TABLET (FP) PO PRN (21:54)
[2016-09-03] MEDS ORDERED: PT OWN MED DRAWER 7, Y5N ONE (08:51)
[2016-09-03] MEDS: FLUTICASONE PROP 0.05% 16 GM NASAL SPRAY NS SCH (10:36)
[2016-09-03] MEDS: ENALAPRIL MALEATE 10 MG TABLET (FP) PO SCH (10:37)
[2016-09-03] MEDS: LIDOCAINE 5% TOPICAL PATCH TP SCH (10:37)
[2016-09-03] MEDS: levETIRAcetam 500 MG TABLET (FP) PO SCH ×2 (10:37→21:23)
[2016-09-03] MEDS: amLODIPine BESYLATE 10 MG TABLET (FP) PO SCH (10:37)
[2016-09-03] MEDS: SERTRALINE HCL 50 MG TABLET (FP) PO SCH (10:37)
[2016-09-03] MEDS: PRENATAL VITAMINS W/ FOLIC ACID TABLET (FP) PO SCH (10:38)
[2016-09-03] MEDS: ATORVASTATIN CA 10 MG TABLET (FP) PO SCH (21:23)
[2016-09-03] MEDS: THIAMINE HCL 100 MG TABLET (FP) PO SCH (21:23)
[2016-09-03] MEDS: risperiDONE 2 MG TABLET PO SCH (21:23)
[2016-09-03] MEDS: ACETAMINOPHEN 325 MG TABLET (FP) PO PRN (21:24)
[2016-09-04] MEDS ORDERED: PT OWN MED DRAWER 7, Y5N ONE (08:37)
[2016-09-04] MEDS: FLUTICASONE PROP 0.05% 16 GM NASAL SPRAY NS SCH (10:02)
[2016-09-04] MEDS: LIDOCAINE 5% TOPICAL PATCH TP SCH (10:03)
[2016-09-04] MEDS: levETIRAcetam 500 MG TABLET (FP) PO SCH ×2 (10:03→21:09)
[2016-09-04] MEDS: PRENATAL VITAMINS W/ FOLIC ACID TABLET (FP) PO SCH (10:04)
[2016-09-04] MEDS: ENALAPRIL MALEATE 10 MG TABLET (FP) PO SCH (10:04)
[2016-09-04] MEDS: SERTRALINE HCL 50 MG TABLET (FP) PO SCH (10:04)
[2016-09-04] MEDS: amLODIPine BESYLATE 10 MG TABLET (FP) PO SCH (10:04)
[2016-09-04] MEDS: risperiDONE 2 MG TABLET PO SCH (21:09)
[2016-09-04] MEDS: THIAMINE HCL 100 MG TABLET (FP) PO SCH (21:09)
[2016-09-04] MEDS: ATORVASTATIN CA 10 MG TABLET (FP) PO SCH (21:09)
[2016-09-04] MEDS: ACETAMINOPHEN 325 MG TABLET (FP) PO PRN (21:10)
[2016-09-05] MEDS: levETIRAcetam 500 MG TABLET (FP) PO SCH ×2 (10:03→21:12)
[2016-09-05] MEDS: PRENATAL VITAMINS W/ FOLIC ACID TABLET (FP) PO SCH (10:03)
[2016-09-05] MEDS: ENALAPRIL MALEATE 10 MG TABLET (FP) PO SCH (10:03)
[2016-09-05] MEDS: LIDOCAINE 5% TOPICAL PATCH TP SCH (10:03)
[2016-09-05] MEDS: SERTRALINE HCL 50 MG TABLET (FP) PO SCH (10:03)
[2016-09-05] MEDS: amLODIPine BESYLATE 10 MG TABLET (FP) PO SCH (10:03)
[2016-09-05] MEDS: FLUTICASONE PROP 0.05% 16 GM NASAL SPRAY NS SCH (10:04)
[2016-09-05] MEDS: THIAMINE HCL 100 MG TABLET (FP) PO SCH (21:11)
[2016-09-05] MEDS: IBUPROFEN 400 MG TABLET (FP) PO PRN (21:11)
[2016-09-05] MEDS: ATORVASTATIN CA 10 MG TABLET (FP) PO SCH (21:11)
[2016-09-05] MEDS: risperiDONE 2 MG TABLET PO SCH (21:12)
[2016-09-06] MEDS ORDERED: PT OWN MED DRAWER 7, Y5N ONE (09:03)
[2016-09-06] MEDS: SERTRALINE HCL 50 MG TABLET (FP) PO SCH (09:55)
[2016-09-06] MEDS: ENALAPRIL MALEATE 10 MG TABLET (FP) PO SCH (09:55)
[2016-09-06] MEDS: FLUTICASONE PROP 0.05% 16 GM NASAL SPRAY NS SCH (09:55)
[2016-09-06] MEDS: levETIRAcetam 500 MG TABLET (FP) PO SCH ×2 (09:55→21:21)
[2016-09-06] MEDS: amLODIPine BESYLATE 10 MG TABLET (FP) PO SCH (09:55)
[2016-09-06] MEDS: LIDOCAINE 5% TOPICAL PATCH TP SCH (09:55)
[2016-09-06] MEDS: PRENATAL VITAMINS W/ FOLIC ACID TABLET (FP) PO SCH (09:56)
[2016-09-06] MEDS: risperiDONE 2 MG TABLET PO SCH (21:21)
[2016-09-06] MEDS: THIAMINE HCL 100 MG TABLET (FP) PO SCH (21:21)
[2016-09-06] MEDS: ATORVASTATIN CA 10 MG TABLET (FP) PO SCH (21:21)
[2016-09-07] MEDS: LIDOCAINE 5% TOPICAL PATCH TP SCH (10:12)
[2016-09-07] MEDS: SERTRALINE HCL 50 MG TABLET (FP) PO SCH (10:12)
[2016-09-07] MEDS: levETIRAcetam 500 MG TABLET (FP) PO SCH ×2 (10:12→21:30)
[2016-09-07] MEDS: ENALAPRIL MALEATE 10 MG TABLET (FP) PO SCH (10:12)
[2016-09-07] MEDS: PRENATAL VITAMINS W/ FOLIC ACID TABLET (FP) PO SCH (10:12)
[2016-09-07] MEDS: amLODIPine BESYLATE 10 MG TABLET (FP) PO SCH (10:12)
[2016-09-07] MEDS: FLUTICASONE PROP 0.05% 16 GM NASAL SPRAY NS SCH (10:14)
[2016-09-07] MEDS ORDERED: PT OWN MED DRAWER 7, Y5N ONE (10:15)
[2016-09-07] MEDS: risperiDONE 2 MG TABLET PO SCH (21:30)
[2016-09-07] MEDS: THIAMINE HCL 100 MG TABLET (FP) PO SCH (21:31)
[2016-09-07] MEDS: ATORVASTATIN CA 10 MG TABLET (FP) PO SCH (21:31)
[2016-09-07] MEDS: diphenhydrAMINE HCL 50 MG CAPSULE PO PRN (21:32)
[2016-09-08] MEDS: amLODIPine BESYLATE 10 MG TABLET (FP) PO SCH (10:45)
[2016-09-08] MEDS: LIDOCAINE 5% TOPICAL PATCH TP SCH (10:46)
[2016-09-08] MEDS: SERTRALINE HCL 50 MG TABLET (FP) PO SCH (10:46)
[2016-09-08] MEDS: PRENATAL VITAMINS W/ FOLIC ACID TABLET (FP) PO SCH (10:46)
[2016-09-08] MEDS: levETIRAcetam 500 MG TABLET (FP) PO SCH ×2 (10:46→21:37)
[2016-09-08] MEDS: FLUTICASONE PROP 0.05% 16 GM NASAL SPRAY NS SCH (10:53)
[2016-09-08] MEDS: ENALAPRIL MALEATE 10 MG TABLET (FP) PO SCH (11:46)
[2016-09-08] MEDS: ATORVASTATIN CA 10 MG TABLET (FP) PO SCH (21:37)
[2016-09-08] MEDS: diphenhydrAMINE HCL 50 MG CAPSULE PO PRN (21:37)
[2016-09-08] MEDS: risperiDONE 2 MG TABLET PO SCH (21:37)
[2016-09-08] MEDS: THIAMINE HCL 100 MG TABLET (FP) PO SCH (21:37)
[2016-09-09] MEDS: amLODIPine BESYLATE 10 MG TABLET (FP) PO SCH (09:59)
[2016-09-09] MEDS: LIDOCAINE 5% TOPICAL PATCH TP SCH (09:59)
[2016-09-09] MEDS: PRENATAL VITAMINS W/ FOLIC ACID TABLET (FP) PO SCH (09:59)
[2016-09-09] MEDS: ENALAPRIL MALEATE 10 MG TABLET (FP) PO SCH (09:59)
[2016-09-09] MEDS: FLUTICASONE PROP 0.05% 16 GM NASAL SPRAY NS SCH (09:59)
[2016-09-09] MEDS: SERTRALINE HCL 50 MG TABLET (FP) PO SCH (09:59)
[2016-09-09] MEDS: levETIRAcetam 500 MG TABLET (FP) PO SCH ×2 (09:59→21:35)
[2016-09-09] MEDS: IBUPROFEN 400 MG TABLET (FP) PO PRN (21:35)
[2016-09-09] MEDS: diphenhydrAMINE HCL 50 MG CAPSULE PO PRN (21:35)
[2016-09-09] MEDS: THIAMINE HCL 100 MG TABLET (FP) PO SCH (21:35)
[2016-09-09] MEDS: risperiDONE 2 MG TABLET PO SCH (21:35)
[2016-09-09] MEDS: ATORVASTATIN CA 10 MG TABLET (FP) PO SCH (21:35)
[2016-09-10] MEDS ORDERED: PT OWN MED DRAWER 7, Y5N ONE (09:03)
[2016-09-10] MEDS: SERTRALINE HCL 50 MG TABLET (FP) PO SCH (10:04)
[2016-09-10] MEDS: ENALAPRIL MALEATE 10 MG TABLET (FP) PO SCH (10:04)
[2016-09-10] MEDS: amLODIPine BESYLATE 10 MG TABLET (FP) PO SCH (10:04)
[2016-09-10] MEDS: PRENATAL VITAMINS W/ FOLIC ACID TABLET (FP) PO SCH (10:04)
[2016-09-10] MEDS: levETIRAcetam 500 MG TABLET (FP) PO SCH ×2 (10:04→21:41)
[2016-09-10] MEDS: FLUTICASONE PROP 0.05% 16 GM NASAL SPRAY NS SCH (10:04)
[2016-09-10] MEDS: LIDOCAINE 5% TOPICAL PATCH TP SCH (10:05)
[2016-09-10] MEDS: THIAMINE HCL 100 MG TABLET (FP) PO SCH (21:39)
[2016-09-10] MEDS: IBUPROFEN 400 MG TABLET (FP) PO PRN (21:39)
[2016-09-10] MEDS: diphenhydrAMINE HCL 50 MG CAPSULE PO PRN (21:39)
[2016-09-10] MEDS: risperiDONE 2 MG TABLET PO SCH (21:40)
[2016-09-10] MEDS: ATORVASTATIN CA 10 MG TABLET (FP) PO SCH (21:40)
[2016-09-11] MEDS: ENALAPRIL MALEATE 10 MG TABLET (FP) PO SCH (10:04)
[2016-09-11] MEDS: amLODIPine BESYLATE 10 MG TABLET (FP) PO SCH (10:04)
[2016-09-11] MEDS: SERTRALINE HCL 50 MG TABLET (FP) PO SCH (10:04)
[2016-09-11] MEDS: FLUTICASONE PROP 0.05% 16 GM NASAL SPRAY NS SCH (10:04)
[2016-09-11] MEDS: levETIRAcetam 500 MG TABLET (FP) PO SCH ×2 (10:04→21:21)
[2016-09-11] MEDS: PRENATAL VITAMINS W/ FOLIC ACID TABLET (FP) PO SCH (10:05)
[2016-09-11] MEDS: LIDOCAINE 5% TOPICAL PATCH TP SCH (10:05)
--- NOTE | 2016-09-11 13:33 | PN ---
Psychiatric Progress Note Vital Signs: Vital Signs Period Temp Pulse Resp BP Sys/Hendrix Pulse Ox Last 24 Hr 98.9 F 97-101 18-20 117-122/68-82 Date of Session: 09/11/16 Chief Complaint:: "I want help for my craving for alcohol" HPI: Patient addressing Alcohol Dependence comorbid with Major Depressive Disorder ROS: HTN, Hyperlipidemia, Seizure Disorder Current Medications: Active Medications Generic Name Dose Route Start Last Admin Trade Name Freq PRN Reason Stop Dose Admin Acetaminophen 650 mg 08/26/16 11:24 09/04/16 21:10 Tylenol - PO 650 mg Q4H PRN Administration FEVER OR PAIN Al Hydroxide/Mg Hydroxide 30 ml 08/26/16 11:24 Mylanta Oral Suspension - PO Q6H PRN DYSPEPSIA Amlodipine Besylate 10 mg 08/27/16 10:00 09/11/16 10:04 Norvasc - PO 10 mg DAILY MILAGROS Administration Atorvastatin Calcium 10 mg 08/26/16 22:00 09/10/16 21:40 Lipitor - PO 10 mg HS MILAGROS Administration Diphenhydramine HCl 50 mg 08/26/16 11:24 09/10/16 21:39 Benadryl - PO 50 mg HSMR1 PRN Administration FOR ITCHING Enalapril Maleate 10 mg 08/27/16 10:00 09/11/16 10:04 Vasotec - PO 10 mg DAILY MILAGROS Administration Eucalyptus/Menthol/Phenol/Sorbitol 1 each 08/26/16 11:24 Cepastat Lozenge - MM Q4H PRN SORE THROAT Fluticasone Propionate 1 spray 08/27/16 10:00 09/11/16 10:04 Flonase - NS 1 spray DAILY MILAGROS Administration Guaifenesin 10 ml 08/26/16 11:24 Robitussin Dm - PO Q6H PRN COUGH Ibuprofen 400 mg 08/26/16 11:24 09/10/16 21:39 Motrin - PO 400 mg Q6H PRN Administration PAIN Levetiracetam 500 mg 08/26/16 22:00 09/11/16 10:04 Keppra - PO 500 mg BID MILAGROS Administration Lidocaine 1 patch 09/02/16 10:00 09/11/16 10:05 Lidoderm Patch - TP 1 patch DAILY MILAGROS Administration Loperamide HCl 4 mg 08/26/16 11:24 Imodium - PO Q6H PRN DIARRHEA Magnesium Hydroxide 30 ml 08/26/16 11:24 Milk Of Magnesia - PO DAILY PRN CONSTIPATION Naltrexone HCl 50 mg 09/11/16 13:30 Revia - PO DAILY MILAGROS Multivit/Folic Acid/Iron 1 tab 08/27/16 10:00 09/10/16 10:04 Vitamins (Sjr) - PO 1 tab DAILY MILAGROS Administration Pseudoephedrine/Triprolidine 1 combo 08/26/16 11:24 Actifed - PO TID PRN NASAL CONGESTION Risperidone 2 mg 08/26/16 22:00 09/10/16 21:40 Risperdal - PO 2 mg HS MILAGROS Administration Sertraline HCl 50 mg 08/27/16 10:00 09/11/16 10:04 Zoloft - PO 50 mg DAILY MILAGROS Administration Thiamine HCl 100 mg 08/26/16 22:00 09/10/16 21:39 Vitamin B1 - PO 100 mg HS MILAGROS Administration Medication(s) Change(s): Start Naltrexone 50 mg po daily Current Side Effect: No Lab tests ordered: Yes Lab tests reviewed: Yes Provider note:: Patient requests help for his craving for alcohol. He was provided with information regarding alcohol treatment with following medications : Antabuse(Disulfiram), Acamprosate(Campral) and Naltrexone. The latter two were fully discussed with him and he agreed to take Naltrexone for convinience. Patient was told about the Total face to face time:: 30 Mental Status Exam - Mental Status Exam Alert and Oriented to: Time, Place, Person Cognitive Function: Fair Patient Appearance: Well Groomed Mood: Hopeful, Euthymic Affect: Appropriate Patient Behavior: Cooperative Speech Pattern: Clear Voice Loudness: Normal Thought Process: Intact Thought Disorder: Not Present Hallucinations: Denies Suicidal Ideation: Denies Homicidal Ideation: Denies Insight/Judgement: Fair Sleep: Fair Appetite: Good Muscle strength/Tone: Normal Gait/Station: Other (uses walker for ambulation) Psychiatric Treatment Plan - Problem List (1) Alcohol dependence with uncomplicated withdrawal Current Visit: No (2) MDD (major depressive disorder) Current Visit: No (3) HTN (hypertension) Current Visit: No Qualifiers: Hypertension type: essential hypertension Qualified Code(s): I10 - Essential (primary) hypertension (4) Hyperlipidemia Current Visit: No Qualifiers: Hyperlipidemia type: pure hypercholesterolemia Qualified Code(s): E78.00 - Pure hypercholesterolemia, unspecified; E78.0 - Pure hypercholesterolemia (5) Seizure disorder Current Visit: No Initial treatment plan: 1) Start Naltrexone 50 mg po daily. 2) Monitor progress
[2016-09-11] MEDS: NALTREXONE HCL 50 MG TABLET PO SCH (14:29)
[2016-09-11] MEDS: IBUPROFEN 400 MG TABLET (FP) PO PRN (21:19)
[2016-09-11] MEDS: THIAMINE HCL 100 MG TABLET (FP) PO SCH (21:19)
[2016-09-11] MEDS: risperiDONE 2 MG TABLET PO SCH (21:20)
[2016-09-11] MEDS: ATORVASTATIN CA 10 MG TABLET (FP) PO SCH (21:20)
[2016-09-11] MEDS: diphenhydrAMINE HCL 50 MG CAPSULE PO PRN (21:22)
[2016-09-12] MEDS: levETIRAcetam 500 MG TABLET (FP) PO SCH ×2 (10:06→21:44)
[2016-09-12] MEDS: NALTREXONE HCL 50 MG TABLET PO SCH (10:06)
[2016-09-12] MEDS: ENALAPRIL MALEATE 10 MG TABLET (FP) PO SCH (10:06)
[2016-09-12] MEDS: PRENATAL VITAMINS W/ FOLIC ACID TABLET (FP) PO SCH (10:06)
[2016-09-12] MEDS: SERTRALINE HCL 50 MG TABLET (FP) PO SCH (10:06)
[2016-09-12] MEDS: FLUTICASONE PROP 0.05% 16 GM NASAL SPRAY NS SCH (10:06)
[2016-09-12] MEDS: amLODIPine BESYLATE 10 MG TABLET (FP) PO SCH (10:06)
[2016-09-12] MEDS: LIDOCAINE 5% TOPICAL PATCH TP SCH (10:07)
[2016-09-12] MEDS: ATORVASTATIN CA 10 MG TABLET (FP) PO SCH (21:44)
[2016-09-12] MEDS: THIAMINE HCL 100 MG TABLET (FP) PO SCH (21:44)
[2016-09-12] MEDS: risperiDONE 2 MG TABLET PO SCH (21:45)
[2016-09-12] MEDS: diphenhydrAMINE HCL 50 MG CAPSULE PO PRN (21:45)
[2016-09-13] MEDS ORDERED: PT OWN MED DRAWER 7, Y5N ONE (08:44)
[2016-09-13] MEDS: IBUPROFEN 400 MG TABLET (FP) PO PRN ×2 (09:58→21:54)
[2016-09-13] MEDS: levETIRAcetam 500 MG TABLET (FP) PO SCH ×2 (10:01→21:54)
[2016-09-13] MEDS: PRENATAL VITAMINS W/ FOLIC ACID TABLET (FP) PO SCH (10:01)
[2016-09-13] MEDS: amLODIPine BESYLATE 10 MG TABLET (FP) PO SCH (10:01)
[2016-09-13] MEDS: ENALAPRIL MALEATE 10 MG TABLET (FP) PO SCH (10:01)
[2016-09-13] MEDS: NALTREXONE HCL 50 MG TABLET PO SCH (10:02)
[2016-09-13] MEDS: FLUTICASONE PROP 0.05% 16 GM NASAL SPRAY NS SCH (10:02)
[2016-09-13] MEDS: SERTRALINE HCL 50 MG TABLET (FP) PO SCH (10:02)
[2016-09-13] MEDS: LIDOCAINE 5% TOPICAL PATCH TP SCH (10:02)
[2016-09-13] MEDS: diphenhydrAMINE HCL 50 MG CAPSULE PO PRN (21:53)
[2016-09-13] MEDS: THIAMINE HCL 100 MG TABLET (FP) PO SCH (21:53)
[2016-09-13] MEDS: ATORVASTATIN CA 10 MG TABLET (FP) PO SCH (21:53)
[2016-09-13] MEDS: risperiDONE 2 MG TABLET PO SCH (21:53)
[2016-09-14] MEDS ORDERED: PT OWN MED DRAWER 7, Y5N ONE ×2 (08:36→09:45)
[2016-09-14] MEDS: amLODIPine BESYLATE 10 MG TABLET (FP) PO SCH (09:42)
[2016-09-14] MEDS: ENALAPRIL MALEATE 10 MG TABLET (FP) PO SCH (09:42)
[2016-09-14] MEDS: SERTRALINE HCL 50 MG TABLET (FP) PO SCH (09:42)
[2016-09-14] MEDS: levETIRAcetam 500 MG TABLET (FP) PO SCH ×2 (09:42→21:40)
[2016-09-14] MEDS: NALTREXONE HCL 50 MG TABLET PO SCH (09:43)
[2016-09-14] MEDS: PRENATAL VITAMINS W/ FOLIC ACID TABLET (FP) PO SCH (09:43)
[2016-09-14] MEDS: LIDOCAINE 5% TOPICAL PATCH TP SCH (09:43)
[2016-09-14] MEDS: FLUTICASONE PROP 0.05% 16 GM NASAL SPRAY NS SCH (09:44)
[2016-09-14] MEDS: diphenhydrAMINE HCL 50 MG CAPSULE PO PRN (21:38)
[2016-09-14] MEDS: IBUPROFEN 400 MG TABLET (FP) PO PRN (21:38)
[2016-09-14] MEDS: THIAMINE HCL 100 MG TABLET (FP) PO SCH (21:38)
[2016-09-14] MEDS: risperiDONE 2 MG TABLET PO SCH (21:39)
[2016-09-14] MEDS: ATORVASTATIN CA 10 MG TABLET (FP) PO SCH (21:39)
[2016-09-15] MEDS ORDERED: PT OWN MED DRAWER 7, Y5N ONE ×2 (08:45→13:46)
[2016-09-15 10:30] VITALS: PULSE 91
[2016-09-15] MEDS: FLUTICASONE PROP 0.05% 16 GM NASAL SPRAY NS SCH (10:41)
[2016-09-15] MEDS: NALTREXONE HCL 50 MG TABLET PO SCH (10:41)
[2016-09-15] MEDS: LIDOCAINE 5% TOPICAL PATCH TP SCH (10:41)
[2016-09-15] MEDS: levETIRAcetam 500 MG TABLET (FP) PO SCH ×2 (10:41→21:20)
[2016-09-15] MEDS: amLODIPine BESYLATE 10 MG TABLET (FP) PO SCH (10:41)
[2016-09-15] MEDS: SERTRALINE HCL 50 MG TABLET (FP) PO SCH (10:41)
[2016-09-15] MEDS: PRENATAL VITAMINS W/ FOLIC ACID TABLET (FP) PO SCH (10:41)
[2016-09-15] MEDS: ENALAPRIL MALEATE 10 MG TABLET (FP) PO SCH (10:41)
--- NOTE | 2016-09-15 14:03 | PN ---
Psychiatric Progress Note Vital Signs: Vital Signs Period Temp Pulse Resp BP Sys/Hendrix Pulse Ox Last 24 Hr 97.8 F 91-94 18-20 115-117/87-87 Date of Session: 09/15/16 Chief Complaint:: Discharge Note HPI: Patient addressing Alcohol Dependence comorbid with MDD ROS: Hyperlipidemia, Seizure Disorder Current Medications: Active Medications Generic Name Dose Route Start Last Admin Trade Name Freq PRN Reason Stop Dose Admin Acetaminophen 650 mg 08/26/16 11:24 09/04/16 21:10 Tylenol - PO 650 mg Q4H PRN Administration FEVER OR PAIN Al Hydroxide/Mg Hydroxide 30 ml 08/26/16 11:24 Mylanta Oral Suspension - PO Q6H PRN DYSPEPSIA Amlodipine Besylate 10 mg 08/27/16 10:00 09/15/16 10:41 Norvasc - PO 10 mg DAILY MILAGROS Administration Atorvastatin Calcium 10 mg 08/26/16 22:00 09/14/16 21:39 Lipitor - PO 10 mg HS MILAGROS Administration Diphenhydramine HCl 50 mg 08/26/16 11:24 09/14/16 21:38 Benadryl - PO 50 mg HSMR1 PRN Administration FOR ITCHING Enalapril Maleate 10 mg 08/27/16 10:00 09/15/16 10:41 Vasotec - PO 10 mg DAILY MILAGROS Administration Eucalyptus/Menthol/Phenol/Sorbitol 1 each 08/26/16 11:24 Cepastat Lozenge - MM Q4H PRN SORE THROAT Fluticasone Propionate 1 spray 08/27/16 10:00 09/15/16 10:41 Flonase - NS 1 spray DAILY MILAGROS Administration Guaifenesin 10 ml 08/26/16 11:24 Robitussin Dm - PO Q6H PRN COUGH Ibuprofen 400 mg 08/26/16 11:24 09/14/16 21:38 Motrin - PO 400 mg Q6H PRN Administration PAIN Levetiracetam 500 mg 08/26/16 22:00 09/15/16 10:41 Keppra - PO 500 mg BID MILAGROS Administration Lidocaine 1 patch 09/02/16 10:00 09/15/16 10:41 Lidoderm Patch - TP 1 patch DAILY MILAGROS Administration Loperamide HCl 4 mg 08/26/16 11:24 Imodium - PO Q6H PRN DIARRHEA Magnesium Hydroxide 30 ml 08/26/16 11:24 Milk Of Magnesia - PO DAILY PRN CONSTIPATION Naltrexone HCl 50 mg 09/11/16 13:30 09/15/16 10:41 Revia - PO 50 mg DAILY MILAGROS Administration Multivit/Folic Acid/Iron 1 tab 08/27/16 10:00 09/15/16 10:41 Vitamins (Sjr) - PO 1 tab DAILY MILAGROS Administration Pseudoephedrine/Triprolidine 1 combo 08/26/16 11:24 Actifed - PO TID PRN NASAL CONGESTION Risperidone 2 mg 08/26/16 22:00 09/14/16 21:39 Risperdal - PO 2 mg HS MILAGROS Administration Sertraline HCl 50 mg 08/27/16 10:00 09/15/16 10:41 Zoloft - PO 50 mg DAILY MILAGROS Administration Thiamine HCl 100 mg 08/26/16 22:00 09/14/16 21:38 Vitamin B1 - PO 100 mg HS MILAGROS Administration Current Side Effect: No Lab tests ordered: Yes Lab tests reviewed: Yes Provider note:: Patient will complete this program on 09/16/16. He has met his treatment goals and will continue to address his issues in outpatient treatment at [facility] for addiction services and [facility] for [facility]. He verbalized understanding of the negative consequences of his addiction and recognized the importance of having a sober support network to maintain sobriety. He responded well to Zoloft 50 mg po daily, Risperdal 2 mg po HS and Naltrexone 50 mg po daily. Scripts for 30 days supply of these medications will be electronically submitted to [facility] at [address] [place], [place] [id number]. He is stable for discharge on 09/16/16 Total face to face time:: 35 Mental Status Exam - Mental Status Exam Alert and Oriented to: Time, Place, Person Cognitive Function: Fair Patient Appearance: Well Groomed Mood: Hopeful, Euthymic Affect: Appropriate Patient Behavior: Cooperative Speech Pattern: Clear Voice Loudness: Normal Thought Process: Intact Thought Disorder: Not Present Hallucinations: Denies Suicidal Ideation: Denies Homicidal Ideation: Denies Sleep: Fair Appetite: Good Muscle strength/Tone: Normal Gait/Station: Normal Psychiatric Treatment Plan - Problem List (1) Alcohol dependence with uncomplicated withdrawal Current Visit: No (2) MDD (major depressive disorder) Current Visit: No (3) HTN (hypertension) Current Visit: No Qualifiers: Hypertension type: essential hypertension Qualified Code(s): I10 - Essential (primary) hypertension (4) Hyperlipidemia Current Visit: No Qualifiers: Hyperlipidemia type: pure hypercholesterolemia Qualified Code(s): E78.00 - Pure hypercholesterolemia, unspecified; E78.0 - Pure hypercholesterolemia (5) Seizure disorder Current Visit: No Initial treatment plan: Patient will be discharged tomorrow and referred to [facility] for addiction services and [facility] for [facility]
[2016-09-15] MEDS: diphenhydrAMINE HCL 50 MG CAPSULE PO PRN (21:20)
[2016-09-15] MEDS: risperiDONE 2 MG TABLET PO SCH (21:20)
[2016-09-15] MEDS: ATORVASTATIN CA 10 MG TABLET (FP) PO SCH (21:20)
[2016-09-15] MEDS: THIAMINE HCL 100 MG TABLET (FP) PO SCH (21:20)
[2016-09-16 06:38] VITALS: BP 121/88; TEMP 98.9
[2016-09-16] MEDS: levETIRAcetam 500 MG TABLET (FP) PO SCH (09:55)
[2016-09-16] MEDS: FLUTICASONE PROP 0.05% 16 GM NASAL SPRAY NS SCH (09:56)
[2016-09-16] MEDS: ENALAPRIL MALEATE 10 MG TABLET (FP) PO SCH (09:56)
[2016-09-16] MEDS: PRENATAL VITAMINS W/ FOLIC ACID TABLET (FP) PO SCH (09:56)
[2016-09-16] MEDS: LIDOCAINE 5% TOPICAL PATCH TP SCH (09:56)
[2016-09-16] MEDS: amLODIPine BESYLATE 10 MG TABLET (FP) PO SCH (09:56)
[2016-09-16] MEDS: NALTREXONE HCL 50 MG TABLET PO SCH (09:59)
[2016-09-16] MEDS: SERTRALINE HCL 50 MG TABLET (FP) PO SCH (10:00)
== END 2016-09-16 13:20 | disposition home or self-care (01) | DRG 775 ==
LOC: YASAS 10:25 → Y3W 10:26
PROVIDERS: ADMIT Psychiatry & Neurology Psychiatry; ATTEND Psychiatry & Neurology Psychiatry
PROC: HZ2ZZZZ Detoxification Services for Substance Abuse Treatment (ICD-10-PCS; principal; 2016-09-16)
DX: F10.230 Alcohol dependence with withdrawal, uncomplicated (principal); F33.9 Major depressive disorder, recurrent, unspecified; I10 Essential (primary) hypertension; E78.00 Pure hypercholesterolemia, unspecified; G40.909 Epilepsy, unspecified, not intractable, without status epilepticus
CPT/HCPCS: 36415; 87389

== ENCOUNTER 2017-10-06 14:51 | Emergency (ER) | payer OTHER ==
[2017-10-06 15:05] VITALS: TEMP 98.4; BMI 36.8
--- NOTE | 2017-10-06 15:09 | PDOC ---
History of Present Illness - General Chief Complaint: Blood Pressure Problem Stated Complaint: HTN Time Seen by Provider: 10/06/17 15:08 - History of Present Illness Initial Comments: 10/06/17 15:24 Mr. Christopher is a 52 yo male w/ pmh of HTN, bilateral knee arthritis, seizure disorder, and alcohol abuse who presents from [facility] for evaluation of BP 202 /134. He reports he is in detox from alcohol at this time and that he has been drinking approximately a fifth of hard liquor per day for the last 3 months. His last drink was last night. Mr. Christopher has not been taking his seizure or HTN medications as he says he was "focused on the alcohol." He has no complaints at this time but says that he is thirsty. The patient denies chest pain, shortness of breath, headache and dizziness. Denies fever, chills, nausea, vomit, diarrhea and constipation. Denies dysuria, frequency, urgency and hematuria. Allergies: NKDA Past History - Past Medical History Allergies/Adverse Reactions: Allergies Allergy/AdvReac Type Severity Reaction Status Date / Time No Known Allergies Allergy Verified 10/06/17 15:02 Home Medications: Ambulatory Orders Enalapril Maleate [Vasotec -] 20 mg PO DAILY 05/09/15 Atorvastatin Ca [Lipitor] 10 mg PO HS #30 tablet 08/26/16 Fluticasone Prop 0.05% Nasal [Flonase -] 1 spray NS DAILY #1 spray 08/26/16 levETIRAcetam [Keppra -] 500 mg PO BID #60 tablet 08/26/16 Amlodipine Besylate [Norvasc -] 10 mg PO DAILY #30 tablet 09/15/16 Sertraline HCl [Zoloft -] 50 mg PO DAILY #30 tablet 09/15/16 Naltrexone HCl [Revia -] 50 mg PO DAILY #30 tablet 09/16/16 Risperidone [Risperdal -] 2 mg PO HS #30 tablet 09/16/16 Anemia: No Asthma: No Cancer: No Cardiac Disorders: No CVA: No COPD: No CHF: No Dementia: No Diabetes: No GI Disorders: No Disorders: No HTN: Yes (on meds) Hypercholesterolemia: No Kidney Stones: No Liver Disease: No Seizures: Yes (on Keppra, last seizure episode was a month ago) Thyroid Disease: No - Surgical History Abdominal Surgery: No Appendectomy: No Cardiac Surgery: No Cholecystectomy: No Lung Surgery: No Neurologic Surgery: No Orthopedic Surgery: No - Reproductive History Testicular Surgery: No - Suicide/Smoking/Psychosocial Hx Smoking History: Former smoker Have you smoked in the past 12 months: No Information on smoking cessation initiated: No Hx Alcohol Use: Yes Drug/Substance Use Hx: No Substance Use Type: Alcohol Hx Substance Use Treatment: Yes (3 previous inpt detox @ [facility]) Review of Systems - Review of Systems Comments:: 10/06/17 15:28 GENERAL/CONSTITUTIONAL: No fever or chills. No weakness. HEAD, EYES, EARS, NOSE AND THROAT: No change in vision. No ear pain or discharge. No sore throat. CARDIOVASCULAR: No chest pain or shortness of breath RESPIRATORY: No cough, wheezing, or hemoptysis. GASTROINTESTINAL: No nausea, vomiting, diarrhea or constipation. GENITOURINARY: No dysuria, frequency, or change in urination. MUSCULOSKELETAL: No joint or muscle swelling or pain. No neck or back pain. SKIN: No rash NEUROLOGIC: No headache, vertigo, loss of consciousness, or change in strength/ sensation. ENDOCRINE: No increased thirst. No abnormal weight change HEMATOLOGIC/LYMPHATIC: No anemia, easy bleeding, or history of blood clots. ALLERGIC/IMMUNOLOGIC: No hives or skin allergy. *Physical Exam - Vital Signs Last Vital Signs Temp Pulse Resp BP Pulse Ox 98.4 F 107 H 20 167/137 97 10/06/17 15:03 10/06/17 15:03 10/06/17 15:03 10/06/17 15:03 10/06/17 15:03 - Physical Exam Comments: 10/06/17 15:28 GENERAL: Awake, alert, and fully oriented, in no acute distress HEAD: No signs of trauma, normocephalic, atraumatic EYES: PERRLA, EOMI, sclera anicteric, conjunctiva clear ENT: Auricles normal inspection, hearing grossly normal, nares patent, oropharynx clear without exudates. Moist mucosa NECK: Normal ROM, supple, no lymphadenopathy, JVD, or masses LUNGS: No distress, speaks full sentences, clear to auscultation bilaterally HEART: Regular rate and rhythm, normal S1 and S2, no murmurs, rubs or gallops, peripheral pulses normal and equal bilaterally. ABDOMEN: Soft, nontender, normoactive bowel sounds. No guarding, no rebound. No masses EXTREMITIES: Normal inspection, Normal range of motion, no edema. No clubbing or cyanosis. NEUROLOGICAL: Cranial nerves II through XII grossly intact. Normal speech, normal gait, no focal sensorimotor deficits SKIN: Warm, Dry, normal turgor, no rashes or lesions noted. ED Treatment Course - LABORATORY CBC & Chemistry Diagram: 10/06/17 15:41 10/06/17 15:41 Medical Decision Making - Medical Decision Making 10/06/17 16:43 Mr. Christopher is a 52 yo male w/ pmh as described who presents for evaluation of hypertension from [facility]. BP noted to be decreased upon arrival, however patient noted to be slightly tachycardic. On initial interview patient had no complaints, however endorsed to attending physician that he had 8/10 headache. This in combination with HTN previously prompted evaluation with Head CT. CT negative for acute process, labs grossly wnl as below. Discharging patient back to [facility] for further evaluation. 10/06/17 17:45 Attempted to contact [facility] and was unable to sign out patient. No answer to [facility] or on direct line. Sending patient back for further evaluation. Laboratory Results - last 24 hr 10/06/17 10/06/17 15:41 15:41 WBC 7.5 D RBC 5.36 Hgb 15.0 Hct 45.5 MCV 84.9 MCH 28.0 MCHC 32.9 RDW 16.0 H Plt Count 228 D MPV 8.5 D Neutrophils % 68.8 Lymphocytes % 19.3 Monocytes % 11.1 H Eosinophils % 0.1 Basophils % 0.7 Sodium 138 Potassium 3.5 Chloride 103 Carbon Dioxide 26 Anion Gap 9 BUN 13 D Creatinine 1.0 Creat Clearance w eGFR > 60 Random Glucose 95 D Calcium 8.9 Total Bilirubin 0.7 AST 38 H D ALT 30 D Alkaline Phosphatase 82 Creatine Kinase 207 Creatine Kinase Index 1.3 CK-MB (CK-2) 2.755 Troponin I < 0.02 Total Protein 8.3 H Albumin 4.1 *DC/Admit/Observation/Transfer Diagnosis at time of Disposition: HTN (hypertension) Qualifiers: Hypertension type: unspecified Qualified Code(s): I10 - Essential (primary) hypertension - Discharge Dispostion Disposition: HOME - Referrals - Patient Instructions Printed Discharge Instructions: DI for High Blood Pressure Additional Instructions: Please return to ER if any fever, chills, pain, return of headache, altered mental status, or any other concerning symptoms. Follow-up at [facility] for further detox and physician evaluation. - Post Discharge Activity
--- NOTE | 2017-10-06 15:18 | PDOC ---
Attending Attestation - HPI HPI: 10/06/17 16:50 The patient is a 52 year old male with a significant past medical history of hypertension, alcohol abuse, bilateral knee arthritis, and seizure disorder who was brought from [facility] who presents to the emergency department for evaluation of blood pressure 202/134. He reports a headache ranked 8/10 in severity. The patient reports he is currently detoxing from alcohol and has been drinking a month straight. The patient admits he has not been taking medications for hypertension or seizure because he was focused on cutting down on alcohol consumption. The patient denies chest pain, shortness of breath, and dizziness. Denies fevers, chills, nausea, vomiting, diarrhea, and constipation. Denies dysuria, frequency, urgency, and hematuria. Allergies: NKDA Past surgical history: Patient denies. Social history: Current alcohol consumption (1/5 per day). No reported cigarette or drug use. - Physicial Exam PE: Vitals: Triage Vital signs reviewed General Appearance: no acute distress, well nourished well developed, Head: Atraumatic, normocephalic Eyes: Pupils equal reactive round, extraocular movement intact Nose: Nares patent bilaterally Neck: Supple;No Nuchal rigidity Chest Wall: Nontender Cardiac: Regular rate and rhythm, no murmurs, no rubs, no gallops, Lungs: Clear to auscultation bilateral, good air movement bilaterally, Abdomen: Soft, nondistended, normal bowel sounds, nontender to palpation Rectal: Exam deferred Extremities: Full range of motion to all extremities, no cyanosis, clubbing, or edema Skin: Warm and dry, no rashes or lesions, no petechiae Psych: normal mood, normal affect - Medical Decision Making The patient is a 52 year old male with a significant past medical history of hypertension, alcohol abuse, bilateral knee arthritis, and seizure disorder who was brought from [facility] who presents to the emergency department for evaluation of blood pressure 202/134. Plan: Head CT Labs ECG <Melisa Stanford - Last Filed: 10/06/17 16:50> - Resident Resident Name: Kd Rios - ED Attending Attestation I have performed the following: I have examined & evaluated the patient, The case was reviewed & discussed with the resident, I agree w/resident's findings & plan, Exceptions are as noted - Medical Decision Making Patient sent to the ED for evaluation of hypertension. Slight tachycardia EKG with no evidence of ischemia left within normal limits head CT within normal limits. Reevaluation patient states he feels much better. I was verbally informed that the patient's blood pressure had improved and was stable for transfer back to [facility]. After I reviewed the chart I had noticed that the patient's diastolic blood pressure was still elevated but the patient had return to [facility]. I have called and discussed the case with the nothing by mouth over a [facility]. They rechecked his vital signs and is diastolic although improving his still elevated. Return the patient to the emergency department to control the patient's hypertension possibly to observe the patient overnight will only return the patient back to [facility] stable vital signs Awaiting patient from [facility]. <Theron Rodriguez - Last Filed: 10/06/17 19:43> Heart Score/ECG Review - ECG Impressions Comment:: 10/06/17 19:43 Sinus rhythm at 101. No ST elevations or T-wave inversions. Normal axis. Left ventricular hypertrophy. Interpreted by me. <Theron Rodriguez - Last Filed: 10/06/17 19:43> Attestations - Attestations Documentation prepared by Melisa Stanford, acting as biomedical engineering director for Theron Rodriguez MD. <Melisa Stanford - Last Filed: 10/06/17 16:50>
[2017-10-06] MEDS ORDERED: chlordiazePOXIDE HCL 25 MG CAPSULE PO ONE (15:37)
[2017-10-06] MEDS ORDERED: FOLIC ACID INJECTION - 1 MG, THIAMINE HCL 100 MG, MULTIVIT INJECTION ADULT 10 ML in SOD... IVPB ONE (15:38)
[2017-10-06 16:02] LABS: BASO % 0.7 % (0-2.0); EOS % 0.1 % (0-4.5); HEMATOCRIT 45.5 % (35.4-49); LYMPH % 19.3 % (8-40); MCHC 32.9 g/dl (32.0-35.9); MEAN CELL VOLUME 84.9 fl (80-96); MEAN PLT VOLUME 8.5 fl (7.5-11.1); MONO % 11.1 % (3.8-10.2); NEUT % 68.8 % (42.8-82.8); PLATELET COUNT 228 K/MM3 (134-434); RBC 5.36 M/mm3 (4.00-5.60); WHITE BLOOD COUNT 7.5 K/mm3 (4.0-10.0)
[2017-10-06] MEDS ORDERED: chlordiazePOXIDE HCL 25 MG CAPSULE ONE (16:12)
[2017-10-06 16:29] LABS: ALBUMIN 4.1 g/dl (3.4-5.0); ANION GAP 9 (8-16); BLOOD UREA NITROGEN 13 mg/dL (7-18); CALCIUM 8.9 mg/dL (8.5-10.1); CHLORIDE 103 mmol/L (98-107); CO2 26 mmol/L (21-32); GLUCOSE,RANDOM 95 mg/dL (74-106); POTASSIUM 3.5 mmol/L (3.5-5.1); SGOT/AST 38 U/L (15-37); SODIUM 138 mmol/L (136-145); TOT PROT 8.3 g/dl (6.4-8.2)
[2017-10-06 16:33] LABS: ALK PHOS 82 U/L (45-117); BILIRUBIN,TOTAL 0.7 mg/dL (0.2-1.0); SGPT/ALT 30 U/L (12-78)
[2017-10-06] MEDS ORDERED: ACETAMINOPHEN 325 MG TABLET (FP) ONE (16:42)
[2017-10-06] MEDS ORDERED: ACETAMINOPHEN 500 MG TABLET (FP) PO ONE (16:42)
[2017-10-06 17:05] VITALS: BP 170/130; PULSE 104
--- NOTE | 2017-10-07 11:48 | EKG ---
Test Reason : Blood Pressure : / mmHG Vent. Rate : 101 BPM Atrial Rate : 101 BPM P-R Int : 160 ms QRS Dur : 084 ms QT Int : 366 ms P-R-T Axes : 060 025 045 degrees QTc Int : 474 ms SINUS TACHYCARDIA POSSIBLE LEFT ATRIAL ENLARGEMENT LEFT VENTRICULAR HYPERTROPHY CANNOT RULE OUT SEPTAL INFARCT , AGE UNDETERMINED ABNORMAL ECG WHEN COMPARED WITH ECG OF 22-AUG-2016 18:17, MINIMAL CRITERIA FOR SEPTAL INFARCT ARE NOW PRESENT Confirmed by MADAI GALVEZ MD ([id number]) on 10/07/2017 11:47:43 AM Referred By: Confirmed By:MADAI GALVEZ MD
== END 2017-10-06 18:10 | disposition home or self-care (01) ==
LOC: JER 14:51
PROC: 3E033GC Introduction of Other Therapeutic Substance into Peripheral Vein, Percutaneous Approach (ICD-10-PCS; principal; 2017-10-06)
DX: I10 Essential (primary) hypertension (principal); G40.909 Epilepsy, unspecified, not intractable, without status epilepticus; F10.10 Alcohol abuse, uncomplicated; M13.862 Other specified arthritis, left knee; M13.861 Other specified arthritis, right knee; Z87.891 Personal history of nicotine dependence
CPT/HCPCS: 36415; 70450-TC; 80053; 82550; 82553; 84484; 85025; 93005; 93010; 96365; 96367; 99284-25; J7030

== ENCOUNTER 2017-10-06 19:56 | Emergency (ER) | payer OTHER ==
[2017-10-06 20:20] VITALS: TEMP 98.1; BMI 36.0
--- NOTE | 2017-10-06 20:28 | PDOC ---
History of Present Illness - General Chief Complaint: Blood Pressure Problem Stated Complaint: HYPERTENSION Time Seen by Provider: 10/06/17 20:17 Past History - Past Medical History Allergies/Adverse Reactions: Allergies Allergy/AdvReac Type Severity Reaction Status Date / Time No Known Allergies Allergy Verified 10/06/17 20:20 Home Medications: Ambulatory Orders Enalapril Maleate [Vasotec -] 20 mg PO DAILY 05/09/15 Atorvastatin Ca [Lipitor] 10 mg PO HS #30 tablet 08/26/16 Fluticasone Prop 0.05% Nasal [Flonase -] 1 spray NS DAILY #1 spray 08/26/16 levETIRAcetam [Keppra -] 500 mg PO BID #60 tablet 08/26/16 Amlodipine Besylate [Norvasc -] 10 mg PO DAILY #30 tablet 09/15/16 Sertraline HCl [Zoloft -] 50 mg PO DAILY #30 tablet 09/15/16 Naltrexone HCl [Revia -] 50 mg PO DAILY #30 tablet 09/16/16 Risperidone [Risperdal -] 2 mg PO HS #30 tablet 09/16/16 Anemia: No Asthma: No Cancer: No Cardiac Disorders: No CVA: No COPD: No CHF: No Dementia: No Diabetes: No GI Disorders: No Disorders: No HTN: Yes (on meds) Hypercholesterolemia: No Kidney Stones: No Liver Disease: No Seizures: Yes (on Keppra, last seizure episode was a month ago) Thyroid Disease: No - Surgical History Abdominal Surgery: No Appendectomy: No Cardiac Surgery: No Cholecystectomy: No Lung Surgery: No Neurologic Surgery: No Orthopedic Surgery: No - Reproductive History Testicular Surgery: No - Suicide/Smoking/Psychosocial Hx Smoking History: Never smoked Have you smoked in the past 12 months: No Information on smoking cessation initiated: No Hx Alcohol Use: No Drug/Substance Use Hx: No Substance Use Type: Alcohol Hx Substance Use Treatment: Yes (3 previous inpt detox @ [facility]) *Physical Exam - Vital Signs Last Vital Signs Temp Pulse Resp BP Pulse Ox 98.1 F 99 H 18 185/133 97 10/06/17 20:17 10/06/17 20:17 10/06/17 20:17 10/06/17 20:17 10/06/17 20:17 *DC/Admit/Observation/Transfer - Discharge Dispostion Condition at time of disposition: Fair - Referrals Referrals: ON STAFF,NOT [Primary Care Provider] - - Patient Instructions - Post Discharge Activity
[2017-10-06] MEDS ORDERED: cloNIDine HCL 0.1 MG TABLET PO ONE ×2 (20:31→20:32)
[2017-10-06] MEDS ORDERED: amLODIPine BESYLATE 10 MG TABLET (FP) PO ONE (20:31)
--- NOTE | 2017-10-06 20:31 | PDOC ---
History of Present Illness - General Chief Complaint: Blood Pressure Problem Stated Complaint: HYPERTENSION Time Seen by Provider: 10/06/17 20:17 - History of Present Illness Initial Comments: 10/06/17 20:31 Mr. Christopher is a 52 yo male w/ pmh of HTN, bilateral knee arthritis, seizure disorder, and alcohol abuse returned from [facility] after blood pressure was elevated upon arrival. Patient had not yet received home BP medications. Has no new complaints at this time. The patient denies chest pain, shortness of breath, headache and dizziness. Denies fever, chills, nausea, vomit, diarrhea and constipation. Denies dysuria, frequency, urgency and hematuria. Allergies: NKDA Past History - Past Medical History Allergies/Adverse Reactions: Allergies Allergy/AdvReac Type Severity Reaction Status Date / Time No Known Allergies Allergy Verified 10/06/17 20:20 Home Medications: Ambulatory Orders Enalapril Maleate [Vasotec -] 20 mg PO DAILY 05/09/15 Atorvastatin Ca [Lipitor] 10 mg PO HS #30 tablet 08/26/16 Fluticasone Prop 0.05% Nasal [Flonase -] 1 spray NS DAILY #1 spray 08/26/16 levETIRAcetam [Keppra -] 500 mg PO BID #60 tablet 08/26/16 Amlodipine Besylate [Norvasc -] 10 mg PO DAILY #30 tablet 09/15/16 Sertraline HCl [Zoloft -] 50 mg PO DAILY #30 tablet 09/15/16 Naltrexone HCl [Revia -] 50 mg PO DAILY #30 tablet 09/16/16 Risperidone [Risperdal -] 2 mg PO HS #30 tablet 09/16/16 Anemia: No Asthma: No Cancer: No Cardiac Disorders: No CVA: No COPD: No CHF: No Dementia: No Diabetes: No GI Disorders: No Disorders: No HTN: Yes (on meds) Hypercholesterolemia: No Kidney Stones: No Liver Disease: No Seizures: Yes (on Keppra, last seizure episode was a month ago) Thyroid Disease: No - Surgical History Abdominal Surgery: No Appendectomy: No Cardiac Surgery: No Cholecystectomy: No Lung Surgery: No Neurologic Surgery: No Orthopedic Surgery: No - Reproductive History Testicular Surgery: No - Suicide/Smoking/Psychosocial Hx Smoking History: Never smoked Have you smoked in the past 12 months: No Information on smoking cessation initiated: No Hx Alcohol Use: No Drug/Substance Use Hx: No Substance Use Type: Alcohol Hx Substance Use Treatment: Yes (3 previous inpt detox @ [facility]) Review of Systems - Review of Systems Comments:: 10/06/17 20:33 GENERAL/CONSTITUTIONAL: No fever or chills. No weakness. HEAD, EYES, EARS, NOSE AND THROAT: No change in vision. No ear pain or discharge. No sore throat. CARDIOVASCULAR: No chest pain or shortness of breath RESPIRATORY: No cough, wheezing, or hemoptysis. GASTROINTESTINAL: No nausea, vomiting, diarrhea or constipation. GENITOURINARY: No dysuria, frequency, or change in urination. MUSCULOSKELETAL: No joint or muscle swelling or pain. No neck or back pain. SKIN: No rash NEUROLOGIC: No headache, vertigo, loss of consciousness, or change in strength/ sensation. ENDOCRINE: No increased thirst. No abnormal weight change HEMATOLOGIC/LYMPHATIC: No anemia, easy bleeding, or history of blood clots. ALLERGIC/IMMUNOLOGIC: No hives or skin allergy. *Physical Exam - Vital Signs Last Vital Signs Temp Pulse Resp BP Pulse Ox 98.1 F 99 H 18 185/133 97 10/06/17 20:17 10/06/17 20:17 10/06/17 20:17 10/06/17 20:17 10/06/17 20:17 - Physical Exam Comments: 10/06/17 20:33 GENERAL: Awake, alert, and fully oriented, in no acute distress HEAD: No signs of trauma, normocephalic, atraumatic EYES: PERRLA, EOMI, sclera anicteric, conjunctiva clear ENT: Auricles normal inspection, hearing grossly normal, nares patent, oropharynx clear without exudates. Moist mucosa NECK: Normal ROM, supple, no lymphadenopathy, JVD, or masses LUNGS: No distress, speaks full sentences, clear to auscultation bilaterally HEART: Regular rate and rhythm, normal S1 and S2, no murmurs, rubs or gallops, peripheral pulses normal and equal bilaterally. ABDOMEN: Soft, nontender, normoactive bowel sounds. No guarding, no rebound. No masses EXTREMITIES: Normal inspection, Normal range of motion, no edema. No clubbing or cyanosis. NEUROLOGICAL: Cranial nerves II through XII grossly intact. Normal speech, normal gait, no focal sensorimotor deficits SKIN: Warm, Dry, normal turgor, no rashes or lesions noted. Medical Decision Making - Medical Decision Making 10/06/17 20:33 Mr. Christopher is a 52 yo male w/ pmh as described who presents for evaluation of elevated BP as described. Home BP medication administered with 0.2 clonidine 10/06/17 22:47 Patient BP noted to remain elevated; 5mg labetalol given. 10/07/17 00:00 Additional 5mg labetalol given for BP control. Patient signed out to Dr. Perez for further care. *DC/Admit/Observation/Transfer Diagnosis at time of Disposition: HTN (hypertension) Qualifiers: Hypertension type: unspecified Qualified Code(s): I10 - Essential (primary) hypertension - Discharge Dispostion Condition at time of disposition: Fair - Referrals Referrals: ON STAFF,NOT [Non Staff, Medical] - - Patient Instructions Printed Discharge Instructions: DI for High Blood Pressure - Post Discharge Activity
--- NOTE | 2017-10-06 20:33 | PDOC ---
Attending Attestation - HPI HPI: 10/06/17 21:25 The patient is a 52 year old male with a significant PMH of hypertension, bilateral knee arthritis, seizure disorder, and alcohol abuse who presents to the emergency department from [facility] with an elevated blood pressure earlier today. The patient denies any pain at time of exam. He denies any chest pain, shortness of breath, headache or dizziness. He denies any fever, chills, nausea , vomit, diarrhea, constipation or urinary symptoms. He denies any other complaints. Documentation prepared by Cristin Mukherjee, acting as medical service representative for Minnie Perez MD. - Physicial Exam PE: 10/06/17 21:27 GENERAL: Well developed, well nourished. Awake and alert. No acute distress. HEENT: Normocephalic, atraumatic. PERRLA, EOMI. No conjunctival pallor. Sclera are non- icteric. Moist mucous membranes. Oropharynx is clear. NECK: Supple. Full ROM. No JVD. Carotid pulses 2+ and symmetric, without bruits. No thyromegaly. No lymphadenopathy. CARDIOVASCULAR: Regular rate and rhythm. No murmurs, rubs, or gallops. Distal pulses are 2+ and symmetric. PULMONARY: No evidence of respiratory distress. Lungs clear to auscultation bilaterally. No wheezing, rales or rhonchi. ABDOMINAL: Soft. Non-tender. Non-distended. No rebound or guarding. No organomegaly. Normoactive bowel sounds. MUSCULOSKELETAL Normal range of motion at all joints. No bony deformities or tenderness. No CVA tenderness. EXTREMITIES: No cyanosis. No clubbing. No edema. No calf tenderness. SKIN: Warm and dry. Normal capillary refill. No rashes. No jaundice. NEUROLOGICAL: (+) Conversant. Alert, awake, appropriate. Cranial nerves 2-12 intact. No deficits to light touch and temperature in face, upper extremities and lower extremities. No motor deficits in the in face, upper extremities and lower extremities. Normoreflexic in the upper and lower extremities. Normal speech. Toes are down-going bilaterally. Gait is normal without ataxia. PSYCHIATRIC: Cooperative. Good eye contact. Appropriate mood and affect. <Cristin Mukherjee - Last Filed: 10/06/17 21:25> - Resident Resident Name: Kd Rios - ED Attending Attestation I have performed the following: I have examined & evaluated the patient, The case was reviewed & discussed with the resident, I agree w/resident's findings & plan, Exceptions are as noted - HPI HPI: 10/06/17 20:32 52-year-old male sent in from [facility] for elevated blood pressure. He has a history of alcoholism and went to [facility] but was too hypertensive to be placed in program - Medical Decision Making 10/07/17 01:30 Patient has a history of high blood pressure has not been taking his medications. Earlier today. He is on antihypertensive with a headache and sent over for CAT scan CAT scan of the head was negative for any acute intracranial pathology Patient was given labetalol and responded to his systolic now is 138 I called over to [facility] and spoke to the nurse practitioner, Hay Norris . He had responded to labetalol and may require labetalol for the next 2 days 10/07/17 02:06 <Minnie Perez - Last Filed: 10/07/17 02:06>
[2017-10-06] MEDS ORDERED: amLODIPine BESYLATE 5 MG TABLET (FP) ONE (20:36)
[2017-10-06] MEDS ORDERED: cloNIDine HCL 0.1 MG TABLET ONE (20:37)
[2017-10-06] MEDS ORDERED: niCARdipine HCL 25 MG/10 ML AMPUL IVPB ONE ×2 (22:00→22:43)
[2017-10-06] MEDS ORDERED: LABETALOL HCL 5 MG/1 ML (100MG/20 ML VIAL) IVPUSH ONE (22:46)
[2017-10-06] MEDS ORDERED: LABETALOL HCL 5 MG/1 ML (200MG/40ML VIAL) IVPB ONE (22:52)
[2017-10-06] MEDS ORDERED: chlordiazePOXIDE HCL 25 MG CAPSULE PO ONE (23:31)
[2017-10-06] MEDS ORDERED: chlordiazePOXIDE HCL 25 MG CAPSULE ONE (23:33)
[2017-10-07] MEDS ORDERED: LABETALOL HCL 5 MG/1 ML (100MG/20 ML VIAL) IVPUSH ONE
[2017-10-07] MEDS ORDERED: LABETALOL HCL 100 MG TABLET (FP) ONE (00:47)
[2017-10-07] MEDS ORDERED: LABETALOL HCL 200 MG TABLET (FP) PO ONE (00:53)
[2017-10-07] MEDS ORDERED: cloNIDine HCL 0.1 MG TABLET PO ONE (01:29)
--- NOTE | 2017-10-07 01:33 | PDOC ---
*Physical Exam - Vital Signs Last Vital Signs Temp Pulse Resp BP Pulse Ox 98.1 F 85 18 140/108 100 10/06/17 20:17 10/07/17 00:46 10/07/17 00:46 10/07/17 00:46 10/07/17 00:46 ED Treatment Course - Medications Given in the ED: ED Medications Discontinued Medications Generic Name Dose Route Start Last Admin Trade Name Adilson PRN Reason Stop Dose Admin Amlodipine Besylate 10 mg 10/06/17 20:31 10/06/17 20:40 Norvasc - PO 10/06/17 20:32 10 mg ONCE ONE Administration Chlordiazepoxide HCl 50 mg 10/06/17 23:31 10/06/17 23:34 Librium - PO 10/06/17 23:32 50 mg ONCE ONE Administration Clonidine 0.1 mg 10/06/17 20:31 10/06/17 20:33 Catapres - PO 10/06/17 20:32 Not Given ONCE ONE Clonidine 0.2 mg 10/06/17 20:32 10/06/17 20:40 Catapres - PO 10/06/17 20:33 0.2 mg ONCE ONE Administration Labetalol HCl 5 mg 10/06/17 22:46 10/06/17 23:00 Normodyne Injection - IVPUSH 10/06/17 22:47 5 mg ONCE ONE Administration Labetalol HCl 5 mg 10/07/17 00:00 10/07/17 00:13 Normodyne Injection - IVPUSH 10/07/17 00:01 5 mg ONCE ONE Administration Labetalol HCl 200 mg 10/07/17 00:53 10/07/17 00:54 Normodyne - PO 10/07/17 00:54 200 mg NOW ONE Administration Nicardipine HCl 5 mg 10/06/17 22:00 10/06/17 22:47 Cardene - IVPB 10/06/17 22:01 Not Given ONCE ONE *DC/Admit/Observation/Transfer Diagnosis at time of Disposition: Alcohol dependence with uncomplicated withdrawal HTN (hypertension) Qualifiers: Hypertension type: unspecified Qualified Code(s): I10 - Essential (primary) hypertension - Discharge Dispostion Disposition: HOME Condition at time of disposition: Fair - Referrals Referrals: ON STAFF,NOT [Non Staff, Medical] - - Patient Instructions Printed Discharge Instructions: DI for High Blood Pressure, DI for Alcohol Abuse - Post Discharge Activity
[2017-10-07] MEDS ORDERED: cloNIDine HCL 0.1 MG TABLET ONE (01:40)
[2017-10-07 02:03] VITALS: BP 136/93; PULSE 84
== END 2017-10-07 02:19 | disposition home or self-care (01) ==
LOC: SUPCPDRO 19:56 → JER 19:56
PROC: 3E033GC Introduction of Other Therapeutic Substance into Peripheral Vein, Percutaneous Approach (ICD-10-PCS; principal; 2017-10-06)
DX: I10 Essential (primary) hypertension (principal); F10.99 Alcohol use, unspecified with unspecified alcohol-induced disorder
CPT/HCPCS: 96374; 99283-25; J0735

== ENCOUNTER 2017-10-07 03:12 | Inpatient (IN) | payer OTHER ==
[2017-10-07] MEDS ORDERED: hydrOXYzine PAMOATE 50 MG CAPSULE (FP) PO PRN (03:26)
[2017-10-07] MEDS ORDERED: chlordiazePOXIDE HCL 25 MG CAPSULE PO PRN (03:26)
[2017-10-07] MEDS ORDERED: P-EPHED 60MG/TRIPROLIDI 2.5MG TABLET PO PRN (03:26)
[2017-10-07] MEDS ORDERED: MAGNESIUM CITRATE 300 ML BOTTLE PO PRN (03:26)
[2017-10-07] MEDS ORDERED: ACETAMINOPHEN 325 MG TABLET (FP) PO PRN (03:26)
[2017-10-07] MEDS ORDERED: MAGNESIUM HYDROX 2400MG/30ML ORAL SUSPENSION 30 ML CUP PO PRN (03:26)
[2017-10-07] MEDS ORDERED: MENTHOL/PHENOL 1 EACH UD MM PRN (03:26)
[2017-10-07] MEDS ORDERED: guaiFENesin/D-METHORPHAN HB 10 ML UNIT-DOSE CUPS PO PRN (03:26)
[2017-10-07] MEDS ORDERED: MAG HYDROX/AL HYDROX/SIMETH 30 ML UNIT-DOSE CUP PO PRN (03:26)
[2017-10-07] MEDS ORDERED: NICOTINE POLACRILEX 2 MG GUM BC PRN (03:26)
[2017-10-07] MEDS ORDERED: LOPERAMIDE HCL 2 MG CAPSULE PO PRN (03:26)
[2017-10-07] MEDS ORDERED: IBUPROFEN 400 MG TABLET (FP) PO PRN (03:26)
[2017-10-07 03:34] VITALS: BMI 33.8
--- NOTE | 2017-10-07 03:34 | HP ---
CIWA Score - CIWA Score Nausea/Vomitin-No Nausea/No Vomiting Muscle Tremors: 4-Moderate,w/Arms Extend Anxiety: 4-Mod. Anxious/Guarded Agitation: 4-Moderately Restless Paroxysmal Sweats: 4-Forehead w/Sweat Beads Orientation: 3-Disoriented Date>2 days Tacttile Disturbances: 0-None Auditory Disturbances: 0-None Visual Disturbances: 0-None Headache: 5-Severe CIWA-Ar Total Score: 24 Admission ROS S - HPI Chief Complaint: SEEKING DETOX FOR WITHDRAWA SX'S FROM ETOH ABUSE Allergies/Adverse Reactions: Allergies Allergy/AdvReac Type Severity Reaction Status Date / Time No Known Allergies Allergy Verified 10/06/17 20:20 History of Present Illness: 52 Y.O. MALE WITH LONG HX/O ALCOHOLISM NON COMPLAINT WITH MEDICATIONS FOR HTN RETURNS FROM [facility] ER AFTER BEING EVALUATED AND TREATED FOR SYMPTOMATIC HTN. CLIENT IS KNOWN TO THIS PROGRAM COMPLETED REHAB HERE 3 WEEKS AGO. REPORTS IMMEDIATELY RELAPSING AFTER DC. REPORTS PMHX ETOH WITHDRAWAL SZ, HTN, HLD, AND DEPRESSION. HE IS NON COMPLAINT WITH MEDS " I HAVENT TAKEN IT IN MONTHS". SELF REFERRED. DENIES ANY SIGNIFICANT PERIOD OF CLEAN TIME. DR. OREILLY ENDORSED PATIENT FROM [facility]. RECOMMENDS MAINTAINING CLIENT ON LABETOLOL 200MG PO BID FOR NEXT FEW DAYS. Exam Limitations: Physical Impairment (ambulates with roling walker) - Ebola screening Have you traveled outside of the country in the last 21 days: No Have you had contact with anyone from an Ebola affected area: No Have you been sick,other than usual withdrawal symptoms: No Do you have a fever: No - Review of Systems Constitutional: Chills, Night Sweats, Changes in sleep EENT: reports: No Symptoms Reported Respiratory: reports: No Symptoms reported Cardiac: reports: No Symptoms Reported GI: reports: Poor Fluid Intake : reports: Other (hesitancy) Musculoskeletal: reports: No Symptoms Reported Integumentary: reports: No Symptoms Reported Neuro: reports: Seizure (r/t etoh) Endocrine: reports: No Symptoms Reported Hematology: reports: No Symptoms Reported Psychiatric: reports: Anxious, Depressed Other Systems: Reviewed and Negative Patient History - Patient Medical History Hx Anemia: No Hx Asthma: No Hx Chronic Obstructive Pulmonary Disease (COPD): No Hx Cancer: No Hx Cardiac Disorders: No Hx Congestive Heart Failure: No Hx Hypertension: Yes (non complaint with meds) Hx Hypercholesterolemia: No Hx Pacemaker: No HX Cerebrovascular Accident: No Hx Seizures: Yes (non complaint with meds) Hx Dementia: No Hx Diabetes: No Hx Gastrointestinal Disorders: No Hx Liver Disease: No Hx Genitourinary Disorders: No Hx Sexually Transmitted Disorders: No Hx Renal Disease (ESRD): No Hx Thyroid Disease: No Hx Human Immunodeficiency Virus (HIV): No Hx Hepatitis C: No Hx Depression: Yes Hx Suicide Attempt: No Hx Bipolar Disorder: No Hx Schizophrenia: No Other Medical History: denies - Patient Surgical History Past Surgical History: No Hx Neurologic Surgery: No Hx Cataract Extraction: No Hx Cardiac Surgery: No Hx Lung Surgery: No Hx Breast Surgery: No Hx Breast Biopsy: No Hx Abdominal Surgery: No Hx Appendectomy: No Hx Cholecystectomy: No Hx Genitourinary Surgery: No Hx Section: No Hx Orthopedic Surgery: No Anesthesia Reaction: No - PPD History Previous Implant?: Yes Documented Results: Negative w/proof Implanted On Prior [facility] Admission?: Yes Date: 08/24/16 Results: 0 mm PPD to be Administered?: Yes - Smoking Cessation Smoking history: Never smoked Have you smoked in the past 12 months: No Hx Chewing Tobacco Use: No Initiated information on smoking cessation: No - Substance & Tx. History Hx Alcohol Use: Yes Hx Substance Use: Yes Substance Use Type: Alcohol Hx Substance Use Treatment: Yes ([facility]) - Substances Abused vodka Route: Oral Frequency: Daily Amount used: 2 pints Age of first use: 13 Date of Last Use: 10/06/17 Family Disease History - Family Disease History Family Disease History: Other: Father (no contact) Admission Physical Exam [facility] Physical General Appearance: Yes: Appropriately Dressed, Tremorous, Anxious HEENTM: Yes: EOMI, Normocephalic, Normal Voice, NAY, Pharynx Normal Respiratory: Yes: Chest Non-Tender, Lungs Clear, Normal Breath Sounds, No Respiratory Distress, No Accessory Muscle Use Neck: Yes: No masses,lesions,Nodules, Supple, Trachea in good position Breast: Yes: Breast Exam Deferred Cardiology: Yes: Regular Rhythm, Regular Rate, S1, S2 Abdominal: Yes: Normal Bowel Sounds, Non Tender, Soft, Protuberent Genitourinary: Yes: Hesitency Back: Yes: Normal Inspection Musculoskeletal: Yes: Other (unsteady gait ambualtes with rolling walker) Extremities: Yes: Normal Range of Motion, Non-Tender, Tremors Neurological: Yes: Alert, Disoriented Integumentary: Yes: Normal Color, Dry, Warm Lymphatic: Yes: Within Normal Limits - Diagnostic (1) Abnormal gait Current Visit: Yes Status: Chronic (2) Alcohol dependence with uncomplicated withdrawal Current Visit: Yes Status: Chronic (3) Arthritis of both knees Current Visit: Yes Status: Chronic Comment: x3 years (4) HTN (hypertension) Current Visit: Yes Status: Chronic Qualifiers: Hypertension type: unspecified Qualified Code(s): I10 - Essential (primary ) hypertension (5) Hyperlipidemia Current Visit: Yes Status: Chronic Qualifiers: Hyperlipidemia type: pure hypercholesterolemia Qualified Code(s): E78.00 - Pure hypercholesterolemia, unspecified (6) Seizure disorder Current Visit: Yes Status: Chronic (7) Walker as ambulation aid Current Visit: Yes Status: Chronic Comment: x 3 years Cleared for Admission BHS - Detox or Rehab S Level of Care: Medically Managed Detox Regimen/Protocol: Librium Claeared for Rehab Admission: No BHS Breath Alcohol Content Breath Alcohol Content: 0 Vital Signs - Vital Signs Vital Signs Refused: No Temperature: 97 F Temperature Source: Oral Pulse Rate: 77 Respiratory Rate: 18 Blood Pressure: 129/89 BP Location: Left Arm Blood Pressure Position: Sitting - Height Height: 5 ft 7 in - Weight Weight: 97.976 kg Weight Measurement Method: Estimated by Patient Body Mass Index (BMI): 33.8 Urine Drug Screen - Test Device Lot Number: [id number] Expiration Date: 06/24/19 - Control Is Test Valid: Yes - Results Drug Screen Negative: Yes
[2017-10-07] MEDS: chlordiazePOXIDE HCL 25 MG CAPSULE PO SCH ×4 (05:06→22:12)
[2017-10-07 10:11] LABS: URINE APPEARANCE SLCLOUDY; URINE BILIRUBIN NEGATIVE (<2.0 mg/dL); URINE COLOR AMBER; URINE GLUCOSE (UA) NEGATIVE (NEGATIVE); URINE KETONE TRACE (NEGATIVE); URINE NITRITE NEGATIVE (NEGATIVE)
[2017-10-07] MEDS: PRENATAL VITAMINS W/ FOLIC ACID TABLET (FP) PO SCH (10:11)
[2017-10-07 10:12] LABS: URINE LEUK ESTERASE 2+ (NEGATIVE); URINE PROTEIN 2+ (NEGATIVE)
[2017-10-07] MEDS: LABETALOL HCL 200 MG TABLET (FP) PO SCH ×2 (10:12→22:12)
--- NOTE | 2017-10-07 10:15 | PN ---
S CIWA - CIWA Score Nausea/Vomitin Muscle Tremors: 3 Anxiety: 3 Agitation: 2 Paroxysmal Sweats: 1-Minimal Palms Moist Orientation: 0-Oriented Tacttile Disturbances: 1-Very Mild Itch/Numbness Auditory Disturbances: 1-Very Mild Visual Disturbances: 0-None Headache: 2-Mild CIWA-Ar Total Score: 16 BHS Progress Note (SOAP) Subjective: ALERT,IRRITABLE,ANXIOUS,INTERRUPTED SLEEP,TREMOR Objective: 10/07/17 10:10 Vital Signs Temperature 97.2 F L 10/07/17 10:05 Pulse Rate 96 H 10/07/17 10:05 Respiratory Rate 18 10/07/17 10:05 Blood Pressure 158/87 10/07/17 10:05 O2 Sat by Pulse Oximetry (%) EKG NSR WITH OCCASIONAL VPC LVH INVERTED T IN V3 TO V5 NO CHEST PAIN,NO SOB,NO DIZZINESS 10/07/17 10:15 Laboratory Last Values Urine Color Mavis 10/07/17 08:00 Urine Appearance Slcloudy 10/07/17 08:00 Urine pH 5.0 (5.0-8.0) D 10/07/17 08:00 Ur Specific [place] 1.030 (1.001-1.035) 10/07/17 08:00 Urine Protein 2+ (NEGATIVE) H 10/07/17 08:00 Urine Glucose (UA) Negative (NEGATIVE) 10/07/17 08:00 Urine Ketones Trace (NEGATIVE) H 10/07/17 08:00 Urine Blood Negative (NEGATIVE) 10/07/17 08:00 Urine Nitrite Negative (NEGATIVE) 10/07/17 08:00 Urine Bilirubin Negative (<2.0 mg/dL) 10/07/17 08:00 Urine Urobilinogen 2.0 mg/dL (0.2-1.0) 10/07/17 08:00 Ur Leukocyte Esterase 2+ (NEGATIVE) H 10/07/17 08:00 LABS PENDING Assessment: 10/07/17 10:16 WITHDRAWAL SYMPTOM Plan: CONTINUE DETOX,BP MONITORING
[2017-10-07 10:29] LABS: EPI CELLS RARE /HPF (FEW); URINE MUCUS FEW
--- NOTE | 2017-10-07 10:42 | CONSULT ---
[facility] Psychiatric Consult - Data Date of interview: 10/07/17 Admission source: [facility] Identifying data: This is a 52 year old Bal[employer] divorce male, father of 3, he is unemployed and supported on PA, domiciled and residing in [facility]. Substance Abuse History: Patient reports drinking alcohol (vodka) 2 pints daily. Medical History: Significant for HTN, Hyperlipidemia, Arthritis both knees, Seizure Disorder Psychiatric History: Patient reports was diagnosed with depression, first psychiatric contact in 1997 while ay the [facility] in [place], since then has been recievibg psychiatric outpatient service, sees the psychiatrist at [facility] and currently on Zoloft 50 mg po daily and Risperadl 2 mg po hs, as per [facility] record was at 3 w on 09/09 with the same medications, states he took med. 3 days ago. Physical/Sexual Abuse/Trauma History: denies Mental Status Exam - Mental Status Exam Alert and Oriented to: Time, Place, Person Cognitive Function: Grossly Intact Patient Appearance: Unkempt Mood: Anxious Affect: Mood Congruent Patient Behavior: Appropriate, Cooperative Speech Pattern: Appropriate Voice Loudness: Normal Thought Process: Goal Oriented Thought Disorder: Not Present Hallucinations: Denies Suicidal Ideation: Denies Homicidal Ideation: Denies Sleep: Fair Appetite: Fair Muscle strength/Tone: Normal Gait/Station: Other (ambulates with walker.) Psychiatric Findings - Problem List ([place] 1, 2,3) (1) Alcohol dependence with uncomplicated withdrawal Current Visit: Yes Status: Chronic (2) MDD (major depressive disorder) Current Visit: No Status: Chronic - Initial Treatment Plan Initial Treatment Plan: Will continue Zoloft and Risperdal and Detox. protocol.
--- NOTE | 2017-10-07 12:04 | EKG ---
Test Reason : Blood Pressure : / mmHG Vent. Rate : 071 BPM Atrial Rate : 071 BPM P-R Int : 180 ms QRS Dur : 094 ms QT Int : 452 ms P-R-T Axes : 012 020 -03 degrees QTc Int : 491 ms SINUS RHYTHM WITH OCCASIONAL PREMATURE VENTRICULAR COMPLEXES MINIMAL VOLTAGE CRITERIA FOR LVH, MAY BE NORMAL VARIANT NONSPECIFIC T WAVE ABNORMALITY PROLONGED QT ABNORMAL ECG WHEN COMPARED WITH ECG OF 06-OCT-2017 15:05, PREMATURE VENTRICULAR COMPLEXES ARE NOW PRESENT MINIMAL CRITERIA FOR SEPTAL INFARCT ARE NO LONGER PRESENT Confirmed by LENNY HAYWOOD, MADAI ([id number]) on 10/07/2017 12:04:41 PM Referred By: Confirmed By:MADAI GALVEZ MD
[2017-10-07] MEDS ORDERED: MELATONIN 5 MG TABLETS PO PRN (22:00)
[2017-10-07] MEDS: risperiDONE 2 MG TABLET PO SCH (22:12)
[2017-10-07] MEDS: THIAMINE HCL 100 MG TABLET (FP) PO SCH (22:12)
[2017-10-08] MEDS ORDERED: cloNIDine HCL 0.1 MG TABLET PO ONE (06:16)
[2017-10-08] MEDS: chlordiazePOXIDE HCL 25 MG CAPSULE PO SCH ×4 (06:27→22:09)
--- NOTE | 2017-10-08 06:51 | PN ---
[facility] Progress Note Note: Patient's blood pressure was B/P 154/102, HR 82. Patient is asymptomatic Vital Signs Temperature 97 F L 10/08/17 06:27 Pulse Rate 82 10/08/17 06:27 Respiratory Rate 18 10/08/17 06:30 Blood Pressure 154/102 10/08/17 06:27 O2 Sat by Pulse Oximetry (%) Laboratory Last Values Urine Color Mavis 10/07/17 08:00 Urine Appearance Slcloudy 10/07/17 08:00 Urine pH 5.0 (5.0-8.0) D 10/07/17 08:00 Ur Specific [place] 1.030 (1.001-1.035) 10/07/17 08:00 Urine Protein 2+ (NEGATIVE) H 10/07/17 08:00 Urine Glucose (UA) Negative (NEGATIVE) 10/07/17 08:00 Urine Ketones Trace (NEGATIVE) H 10/07/17 08:00 Urine Blood Negative (NEGATIVE) 10/07/17 08:00 Urine Nitrite Negative (NEGATIVE) 10/07/17 08:00 Urine Bilirubin Negative (<2.0 mg/dL) 10/07/17 08:00 Urine Urobilinogen 2.0 mg/dL (0.2-1.0) 10/07/17 08:00 Ur Leukocyte Esterase 2+ (NEGATIVE) H 10/07/17 08:00 Urine WBC (Auto) 116 /hpf (3-5) 10/07/17 08:00 Urine RBC (Auto) 6 /hpf (0-3) 10/07/17 08:00 Ur Epithelial Cells Rare /HPF (FEW) 10/07/17 08:00 Urine Mucus Few 10/07/17 08:00 RPR Titer Nonreactive (NONREACTIVE) 10/07/17 07:30 HIV 1&2 Antibody Screen Negative 10/07/17 07:30 HIV P24 Antigen Negative 10/07/17 07:30 Action: Clonidine 0.1mg tablet oral ordered.
--- NOTE | 2017-10-08 09:25 | PN ---
S CIWA - CIWA Score Nausea/Vomitin Muscle Tremors: 2 Anxiety: 2 Agitation: 2 Paroxysmal Sweats: 1-Minimal Palms Moist Orientation: 0-Oriented Tacttile Disturbances: 1-Very Mild Itch/Numbness Auditory Disturbances: 1-Very Mild Visual Disturbances: 0-None Headache: 2-Mild CIWA-Ar Total Score: 13 BHS Progress Note (SOAP) Subjective: ALERT,IRRITABLE,ANXIOUS,INTERRUPTED SLEEP,AMBULATION WITH WALKER Objective: 10/08/17 09:22 Vital Signs Temperature 97 F L 10/08/17 06:27 Pulse Rate 82 10/08/17 06:27 Respiratory Rate 18 10/08/17 06:30 Blood Pressure 154/102 10/08/17 06:27 O2 Sat by Pulse Oximetry (%) Laboratory Last Values Urine Color Mavis 10/07/17 08:00 Urine Appearance Slcloudy 10/07/17 08:00 Urine pH 5.0 (5.0-8.0) D 10/07/17 08:00 Ur Specific [place] 1.030 (1.001-1.035) 10/07/17 08:00 Urine Protein 2+ (NEGATIVE) H 10/07/17 08:00 Urine Glucose (UA) Negative (NEGATIVE) 10/07/17 08:00 Urine Ketones Trace (NEGATIVE) H 10/07/17 08:00 Urine Blood Negative (NEGATIVE) 10/07/17 08:00 Urine Nitrite Negative (NEGATIVE) 10/07/17 08:00 Urine Bilirubin Negative (<2.0 mg/dL) 10/07/17 08:00 Urine Urobilinogen 2.0 mg/dL (0.2-1.0) 10/07/17 08:00 Ur Leukocyte Esterase 2+ (NEGATIVE) H 10/07/17 08:00 Urine WBC (Auto) 116 /hpf (3-5) 10/07/17 08:00 Urine RBC (Auto) 6 /hpf (0-3) 10/07/17 08:00 Ur Epithelial Cells Rare /HPF (FEW) 10/07/17 08:00 Urine Mucus Few 10/07/17 08:00 RPR Titer Nonreactive (NONREACTIVE) 10/07/17 07:30 HIV 1&2 Antibody Screen Negative 10/07/17 07:30 HIV P24 Antigen Negative 10/07/17 07:30 Assessment: 10/08/17 09:24 WITHDRAWAL SYMPTOM Plan: CONTINUE DETOX,R/O UTI,URINE FOR C/S,BACTRIM DS 1 TAB PO BID,FLUID,BP MONITORING ,
[2017-10-08] MEDS: PRENATAL VITAMINS W/ FOLIC ACID TABLET (FP) PO SCH (10:48)
[2017-10-08] MEDS: LABETALOL HCL 200 MG TABLET (FP) PO SCH ×2 (10:48→22:09)
[2017-10-08] MEDS: SULFAMETHOXAZOLE/TRIMETHOPRIM 800MG/160MG D.S. TABLET PO SCH ×2 (10:48→22:09)
[2017-10-08] MEDS: SERTRALINE HCL 50 MG TABLET (FP) PO SCH (10:48)
[2017-10-08] MEDS: levETIRAcetam 500 MG TABLET (FP) PO SCH ×2 (10:49→22:09)
[2017-10-08] MEDS: LISINOPRIL 10 MG TABLET (FP) PO SCH (10:50)
[2017-10-08] MEDS: amLODIPine BESYLATE 10 MG TABLET (FP) PO SCH (10:50)
[2017-10-08] MEDS: risperiDONE 2 MG TABLET PO SCH (22:09)
[2017-10-08] MEDS: THIAMINE HCL 100 MG TABLET (FP) PO SCH (22:09)
[2017-10-09] MEDS: chlordiazePOXIDE 5 MG CAPSULE PO SCH ×4 (07:30→22:09)
--- NOTE | 2017-10-09 09:14 | PN ---
S Progress Note (SOAP) Subjective: ALERT,IRRITABLE,ANXIOUS,INTERRUPTED SLEEP, Objective: 10/09/17 09:13 Vital Signs Temperature 97.4 F L 10/09/17 05:43 Pulse Rate 90 10/09/17 05:43 Respiratory Rate 20 10/09/17 05:43 Blood Pressure 135/90 10/09/17 05:43 O2 Sat by Pulse Oximetry (%) Assessment: 10/09/17 09:13 WITHDRAWAL SYMPTOM Plan: CONTINUE DETOX
[2017-10-09 09:36] LABS: HEMATOCRIT 41.2 % (35.4-49); HEMOGLOBIN 13.6 GM/dL (11.7-16.9); MCH 28.8 pg (25.7-33.7); MCHC 33.1 g/dl (32.0-35.9); MEAN CELL VOLUME 87.2 fl (80-96); MEAN PLT VOLUME 9.4 fl (7.5-11.1); PLATELET COUNT 178 K/MM3 (134-434); RBC 4.72 M/mm3 (4.00-5.60); RDW 15.8 % (11.9-15.9); WHITE BLOOD COUNT 5.9 K/mm3 (4.0-10.0)
[2017-10-09 09:49] LABS: CHLORIDE 105 mmol/L (98-107); POTASSIUM 3.8 mmol/L (3.5-5.1); SODIUM 139 mmol/L (136-145)
[2017-10-09 09:55] LABS: ALBUMIN 3.7 g/dl (3.4-5.0); ALK PHOS 59 U/L (45-117); ANION GAP 9 (8-16); BILIRUBIN,TOTAL 0.3 mg/dL (0.2-1.0); BLOOD UREA NITROGEN 11 mg/dL (7-18); CALCIUM 9.1 mg/dL (8.5-10.1); CO2 25 mmol/L (21-32); GLUCOSE,RANDOM 93 mg/dL (74-106); SGOT/AST 35 U/L (15-37); SGPT/ALT 33 U/L (12-78); TOT PROT 7.3 g/dl (6.4-8.2)
[2017-10-09] MEDS: SERTRALINE HCL 50 MG TABLET (FP) PO SCH (10:22)
[2017-10-09] MEDS: levETIRAcetam 500 MG TABLET (FP) PO SCH ×2 (10:22→22:06)
[2017-10-09] MEDS: LISINOPRIL 10 MG TABLET (FP) PO SCH (10:22)
[2017-10-09] MEDS: SULFAMETHOXAZOLE/TRIMETHOPRIM 800MG/160MG D.S. TABLET PO SCH ×2 (10:22→22:07)
[2017-10-09] MEDS: LABETALOL HCL 200 MG TABLET (FP) PO SCH ×2 (10:22→22:07)
[2017-10-09] MEDS: PRENATAL VITAMINS W/ FOLIC ACID TABLET (FP) PO SCH (10:22)
[2017-10-09] MEDS: amLODIPine BESYLATE 10 MG TABLET (FP) PO SCH (10:23)
[2017-10-09] MEDS: THIAMINE HCL 100 MG TABLET (FP) PO SCH (22:06)
[2017-10-09] MEDS: risperiDONE 2 MG TABLET PO SCH (22:07)
[2017-10-10] MEDS: chlordiazePOXIDE HCL 10 MG CAPSULE PO SCH ×4 (05:32→22:12)
[2017-10-10] MEDS: levETIRAcetam 500 MG TABLET (FP) PO SCH ×2 (11:18→22:12)
[2017-10-10] MEDS: LISINOPRIL 10 MG TABLET (FP) PO SCH (11:18)
[2017-10-10] MEDS: amLODIPine BESYLATE 10 MG TABLET (FP) PO SCH (11:18)
[2017-10-10] MEDS: SERTRALINE HCL 50 MG TABLET (FP) PO SCH (11:18)
[2017-10-10] MEDS: SULFAMETHOXAZOLE/TRIMETHOPRIM 800MG/160MG D.S. TABLET PO SCH ×2 (11:18→22:12)
[2017-10-10] MEDS: PRENATAL VITAMINS W/ FOLIC ACID TABLET (FP) PO SCH (11:18)
[2017-10-10] MEDS: LABETALOL HCL 200 MG TABLET (FP) PO SCH ×2 (11:19→22:12)
--- NOTE | 2017-10-10 14:58 | PN ---
S Progress Note (SOAP) Subjective: Sleep disturbance Sweats shakes abdominal cramp Objective: 10/10/17 14:57 A & O x 3 ambulates with a walker Vital Signs Temperature 97.7 F 10/10/17 13:49 Pulse Rate 91 H 10/10/17 13:49 Respiratory Rate 18 10/10/17 13:49 Blood Pressure 149/90 10/10/17 13:49 O2 Sat by Pulse Oximetry (%) Assessment: 10/10/17 14:58 continue detox Plan: continue detox For d/c in a.m
[2017-10-10] MEDS: THIAMINE HCL 100 MG TABLET (FP) PO SCH (22:12)
[2017-10-10] MEDS: risperiDONE 2 MG TABLET PO SCH (22:12)
--- NOTE | 2017-10-11 08:23 | DS ---
[facility] Detox Discharge Summary Admission Date: 10/07/17 Discharge Date: 10/11/17 - History Present History: Alcohol Dependence - Physical Exam Results Vital Signs: Vital Signs Temperature 96.6 F L 10/11/17 06:00 Pulse Rate 87 10/11/17 06:00 Respiratory Rate 18 10/11/17 06:00 Blood Pressure 127/76 10/11/17 06:00 O2 Sat by Pulse Oximetry (%) - Treatment Hospital Course: Detox Protocol Followed, Detoxed Safely, Responded well, Discharged Condition Good, Rehab Referral Accepted - Medication Discharge Medications: Ambulatory Orders Enalapril Maleate [Vasotec -] 20 mg PO DAILY 05/09/15 Atorvastatin Ca [Lipitor] 10 mg PO HS #30 tablet 08/26/16 Fluticasone Prop 0.05% Nasal [Flonase -] 1 spray NS DAILY #1 spray 08/26/16 levETIRAcetam [Keppra -] 500 mg PO BID #60 tablet 08/26/16 Amlodipine Besylate [Norvasc -] 10 mg PO DAILY #30 tablet 09/15/16 Naltrexone HCl [Revia -] 50 mg PO DAILY #30 tablet 09/16/16 Risperidone [Risperdal -] 2 mg PO HS #30 tablet 10/07/17 Sertraline HCl [Zoloft -] 50 mg PO DAILY #30 tablet 10/07/17 - Diagnosis (1) Abnormal gait Current Visit: Yes Status: Chronic (2) Alcohol dependence with uncomplicated withdrawal Current Visit: Yes Status: Chronic (3) Arthritis of both knees Current Visit: Yes Status: Chronic (4) HTN (hypertension) Current Visit: Yes Status: Chronic Qualifiers: Hypertension type: unspecified Qualified Code(s): I10 - Essential (primary ) hypertension (5) Hyperlipidemia Current Visit: Yes Status: Chronic Qualifiers: Hyperlipidemia type: pure hypercholesterolemia Qualified Code(s): E78.00 - Pure hypercholesterolemia, unspecified (6) Seizure disorder Current Visit: Yes Status: Chronic (7) Walker as ambulation aid Current Visit: Yes Status: Chronic (8) MDD (major depressive disorder) Current Visit: No Status: Chronic (9) Depression (emotion) Current Visit: No Status: Suspected Qualifiers: Depression Type: dysthymia Qualified Code(s): F34.1 - Dysthymic disorder - AMA Did Patient Leave Against Medical Advice: No
[2017-10-11] MEDS: SULFAMETHOXAZOLE/TRIMETHOPRIM 800MG/160MG D.S. TABLET PO SCH (10:59)
[2017-10-11] MEDS: PRENATAL VITAMINS W/ FOLIC ACID TABLET (FP) PO SCH (10:59)
[2017-10-11] MEDS: SERTRALINE HCL 50 MG TABLET (FP) PO SCH (10:59)
[2017-10-11] MEDS: LISINOPRIL 10 MG TABLET (FP) PO SCH (10:59)
[2017-10-11] MEDS: LABETALOL HCL 200 MG TABLET (FP) PO SCH (10:59)
[2017-10-11] MEDS: levETIRAcetam 500 MG TABLET (FP) PO SCH (10:59)
[2017-10-11] MEDS: amLODIPine BESYLATE 10 MG TABLET (FP) PO SCH (10:59)
[2017-10-11 11:58] VITALS: TEMP 97.7
[2017-10-11 12:02] VITALS: BP 145/99; PULSE 87
== END 2017-10-11 12:27 | disposition home or self-care (01) | DRG 775 ==
LOC: YASAS 03:12 → Y6N 03:16
PROVIDERS: ADMIT Surgery; ATTEND Surgery
PROC: HZ2ZZZZ Detoxification Services for Substance Abuse Treatment (ICD-10-PCS; principal; 2017-10-07)
DX: F10.230 Alcohol dependence with withdrawal, uncomplicated (principal); F34.1 Dysthymic disorder; F33.9 Major depressive disorder, recurrent, unspecified; I10 Essential (primary) hypertension; E78.00 Pure hypercholesterolemia, unspecified; G40.909 Epilepsy, unspecified, not intractable, without status epilepticus; M13.862 Other specified arthritis, left knee; M13.861 Other specified arthritis, right knee; R26.2 Difficulty in walking, not elsewhere classified; Z99.89 Dependence on other enabling machines and devices
CPT/HCPCS: 36415; 80053; 81003; 81015; 85027; 86593; 87086; 87389; 93005; 93010; J0735

== ENCOUNTER 2020-01-23 09:18 | Inpatient (IN) | payer OTHER ==
--- NOTE | 2020-01-23 09:25 | BHS.RME ---
Substance Use & Tx History - Substance Use History Alcohol Substance amount: 1 pint vodka Frequency of use: Daily Substance route: Oral Date of Last Use: 01/22/20 Nicotine Substance amount: former smoker - Last Treatment Date of last treatment: 11/23-11/24/17 did not complete detox 10/07-10/11/17 detox completed. Treatment type: Substance Use Disorder (YE) Where was last treatment: Detox Physical/Psych/Mental Status - Behavior General Behavior: Increased activity (restlessness, agitation) Eye Contact: Normal - Cooperativeness Cooperativeness: Cooperative - Thinking Thought Processes: Tight, Logical, Goal Directed Thought content: Future oriented - Physical Health Problems Is patient presently having any pain?: No Does patient presently have any injuries (include location): No Does patient currently have a fever: No Is patient : No CIWA Nausea/Vomitin-No Nausea/No Vomiting Muscle Tremors: 4-Moderate,w/Arms Extend Anxiety: 3 Agitation: 4-Moderately Restless Paroxysmal Sweats: 4-Forehead w/Sweat Beads Orientation: 1-Uncertain about Date Tacttile Disturbances: 0-None Auditory Disturbances: 0-None Visual Disturbances: 0-None Headache: 2-Mild CIWA-Ar Total Score: 18
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
[2020-01-23] MEDS ORDERED: ONDANSETRON *ODT* 4 MG TABLET SL PRN (09:57)
[2020-01-23] MEDS ORDERED: BISMUTH SUBSALICYLATE 524 MG/30 ML UD PO PRN (09:57)
[2020-01-23] MEDS ORDERED: MAGNESIUM CITRATE 300 ML BOTTLE PO PRN (09:57)
[2020-01-23] MEDS ORDERED: METHOCARBAMOL 500 MG TABLET PO PRN (09:57)
[2020-01-23] MEDS ORDERED: ACETAMINOPHEN 325 MG TABLET (FP) PO PRN ×2 (09:57)
[2020-01-23] MEDS ORDERED: MENTHOL/PHENOL 1 EACH UD MM PRN (09:57)
[2020-01-23] MEDS ORDERED: IBUPROFEN 400 MG TABLET (FP) PO PRN (09:57)
[2020-01-23] MEDS ORDERED: MAG HYDROX/AL HYDROX/SIMETH 30 ML UNIT-DOSE CUP PO PRN (09:57)
[2020-01-23] MEDS ORDERED: MAGNESIUM HYDROX 2400MG/30ML ORAL SUSPENSION 30 ML CUP PO PRN (09:57)
[2020-01-23 10:08] VITALS: BMI 31.4
[2020-01-23] MEDS: amLODIPine BESYLATE 10 MG TABLET (FP) PO SCH (11:15)
[2020-01-23] MEDS: PRENATAL VITAMINS W/ FOLIC ACID TABLET (FP) PO SCH (11:15)
[2020-01-23] MEDS: hydrOXYzine PAMOATE 25 MG CAPSULE (FP) PO SCH ×4 (11:16→22:18)
[2020-01-23] MEDS: chlordiazePOXIDE HCL 25 MG CAPSULE PO PRN (11:18)
--- NOTE | 2020-01-23 13:46 | PN ---
[facility] Progress Note Note: bp is 165/112 withdrawal symptom history of hypertension clonidine 0.1 mg po now enalapril 20 mgs po now then daily amlodipin 10 mgs now and daily keppra 500 mgs po bid ,seizure precaution continue detox regimen librium close monitoring
[2020-01-23] MEDS ORDERED: cloNIDine HCL 0.1 MG TABLET PO ONE (14:00)
[2020-01-23] MEDS: ENALAPRIL MALEATE 10 MG TABLET (FP) PO SCH (14:03)
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
[2020-01-23 15:00] LABS: HEMATOCRIT 43.5 % (35.4-49); HEMOGLOBIN 14.4 GM/dL (11.7-16.9); MCHC 33.2 g/dl (32.0-35.9); MEAN CELL VOLUME 87.2 fl (80-96); MEAN PLT VOLUME 8.7 fl (7.5-11.1); PLATELET COUNT 227 K/MM3 (134-434); RBC 4.99 M/mm3 (4.00-5.60); RDW 14.8 % (11.9-15.9); WHITE BLOOD COUNT 6.3 K/mm3 (4.0-10.0)
[2020-01-23 15:06] LABS: ALBUMIN 3.8 g/dl (3.4-5.0); BILIRUBIN,TOTAL 0.3 mg/dL (0.2-1); BLOOD UREA NITROGEN 13.7 mg/dL (7-18); CALCIUM 9.1 mg/dL (8.5-10.1); POTASSIUM 3.5 mmol/L (3.5-5.1); TOT PROT 7.5 g/dl (6.4-8.2)
[2020-01-23] MEDS: chlordiazePOXIDE HCL 25 MG CAPSULE PO SCH ×2 (18:03→22:17)
[2020-01-23] MEDS: THIAMINE HCL 100 MG TABLET (FP) PO SCH (22:17)
[2020-01-23] MEDS: levETIRAcetam 500 MG TABLET (FP) PO SCH (22:17)
[2020-01-23] MEDS: ATORVASTATIN CA 10 MG TABLET (FP) PO SCH (22:17)
[2020-01-23] MEDS: MELATONIN 5 MG TABLETS PO SCH (22:20)
[2020-01-24] MEDS: chlordiazePOXIDE HCL 25 MG CAPSULE PO SCH ×4 (05:27→22:45)
[2020-01-24] MEDS: hydrOXYzine PAMOATE 25 MG CAPSULE (FP) PO SCH ×5 (05:29→22:46)
--- NOTE | 2020-01-24 09:49 | PN ---
S CIWA - CIWA Score Nausea/Vomitin-Mild Nausea/No Vomiting Muscle Tremors: 2 Anxiety: 2 Agitation: 2 Paroxysmal Sweats: No Perspiration Orientation: 0-Oriented Tacttile Disturbances: 1-Very Mild Itch/Numbness Auditory Disturbances: 0-None Visual Disturbances: 0-None Headache: 2-Mild CIWA-Ar Total Score: 10 S Progress Note (SOAP) Subjective: alert,irritable,anxious,interrupted sleep,tremor,aching pain in the body and b ack Objective: 01/24/20 09:47 Vital Signs Temperature 97.3 F L 01/24/20 08:36 Pulse Rate 81 01/24/20 08:36 Respiratory Rate 18 01/24/20 08:36 Blood Pressure 159/94 01/24/20 08:36 O2 Sat by Pulse Oximetry (%) 97 01/24/20 08:36 01/24/20 09:47 Laboratory Last Values WBC 6.3 K/mm3 (4.0-10.0) 01/23/20 10:15 RBC 4.99 M/mm3 (4.00-5.60) 01/23/20 10:15 Hgb 14.4 GM/dL (11.7-16.9) 01/23/20 10:15 Hct 43.5 % (35.4-49) 01/23/20 10:15 MCV 87.2 fl (80-96) 01/23/20 10:15 MCH 29.0 pg (25.7-33.7) 01/23/20 10:15 MCHC 33.2 g/dl (32.0-35.9) 01/23/20 10:15 RDW 14.8 % (11.9-15.9) 01/23/20 10:15 Plt Count 227 K/MM3 (134-434) 01/23/20 10:15 MPV 8.7 fl (7.5-11.1) 01/23/20 10:15 Sodium 144 mmol/L (136-145) 01/23/20 10:15 Potassium 3.5 mmol/L (3.5-5.1) 01/23/20 10:15 Chloride 108 mmol/L (98-107) H 01/23/20 10:15 Carbon Dioxide 27 mmol/L (21-32) 01/23/20 10:15 Anion Gap 9 MMOL/L (8-16) 01/23/20 10:15 BUN 13.7 mg/dL (7-18) 01/23/20 10:15 Creatinine 1.0 mg/dL (0.55-1.3) 01/23/20 10:15 Est GFR (CKD-EPI)AfAm 96.40 01/23/20 10:15 Est GFR (CKD-EPI)NonAf 83.18 01/23/20 10:15 Random Glucose 113 mg/dL (74-106) H 01/23/20 10:15 Calcium 9.1 mg/dL (8.5-10.1) 01/23/20 10:15 Total Bilirubin 0.3 mg/dL (0.2-1) 01/23/20 10:15 AST 21 U/L (15-37) 01/23/20 10:15 ALT 22 U/L (13-61) 01/23/20 10:15 Alkaline Phosphatase 58 U/L (45-117) 01/23/20 10:15 Total Protein 7.5 g/dl (6.4-8.2) 01/23/20 10:15 Albumin 3.8 g/dl (3.4-5.0) 01/23/20 10:15 Syphilis Serology Non-reactive (NONREACTIVE) 01/23/20 10:15 Assessment: 01/24/20 09:48 withdrawal symptom Plan: continue detox librium regimen,fasting glucose in am initial glucose is 113
[2020-01-24] MEDS: levETIRAcetam 500 MG TABLET (FP) PO SCH ×2 (10:51→22:45)
[2020-01-24] MEDS: amLODIPine BESYLATE 10 MG TABLET (FP) PO SCH (10:51)
[2020-01-24] MEDS: ENALAPRIL MALEATE 10 MG TABLET (FP) PO SCH (10:51)
[2020-01-24] MEDS: PRENATAL VITAMINS W/ FOLIC ACID TABLET (FP) PO SCH (10:52)
[2020-01-24] MEDS ORDERED: levETIRAcetam 250 MG TABLET PO ONE (21:33)
[2020-01-24] MEDS: THIAMINE HCL 100 MG TABLET (FP) PO SCH (22:45)
[2020-01-24] MEDS: ATORVASTATIN CA 10 MG TABLET (FP) PO SCH (22:45)
[2020-01-24] MEDS: MELATONIN 5 MG TABLETS PO SCH (22:46)
[2020-01-25] MEDS: chlordiazePOXIDE HCL 25 MG CAPSULE PO SCH ×4 (06:11→22:50)
[2020-01-25] MEDS: hydrOXYzine PAMOATE 25 MG CAPSULE (FP) PO SCH ×2 (06:11→10:26)
[2020-01-25] MEDS: amLODIPine BESYLATE 10 MG TABLET (FP) PO SCH (10:26)
[2020-01-25] MEDS: levETIRAcetam 500 MG TABLET (FP) PO SCH ×2 (10:26→22:50)
[2020-01-25] MEDS: PRENATAL VITAMINS W/ FOLIC ACID TABLET (FP) PO SCH (10:26)
[2020-01-25] MEDS: ENALAPRIL MALEATE 10 MG TABLET (FP) PO SCH (10:26)
--- NOTE | 2020-01-25 11:44 | PN ---
[facility] CIWA - CIWA Score Nausea/Vomitin-Mild Nausea/No Vomiting Muscle Tremors: 2 Anxiety: 2 Agitation: 2 Paroxysmal Sweats: No Perspiration Orientation: 1-Uncertain about Date Tacttile Disturbances: 0-None Auditory Disturbances: 0-None Visual Disturbances: 0-None Headache: 2-Mild CIWA-Ar Total Score: 10 S Progress Note (SOAP) Subjective: alert,irritable,anxious,interrupted sleep,tremor,aching pain body and back Objective: 01/25/20 11:43 Vital Signs Temperature 98.0 F 01/25/20 09:20 Pulse Rate 88 01/25/20 09:20 Respiratory Rate 19 01/25/20 09:20 Blood Pressure 145/77 01/25/20 09:20 O2 Sat by Pulse Oximetry (%) 96 01/25/20 09:20 Laboratory Last Values WBC 6.3 K/mm3 (4.0-10.0) 01/23/20 10:15 RBC 4.99 M/mm3 (4.00-5.60) 01/23/20 10:15 Hgb 14.4 GM/dL (11.7-16.9) 01/23/20 10:15 Hct 43.5 % (35.4-49) 01/23/20 10:15 MCV 87.2 fl (80-96) 01/23/20 10:15 MCH 29.0 pg (25.7-33.7) 01/23/20 10:15 MCHC 33.2 g/dl (32.0-35.9) 01/23/20 10:15 RDW 14.8 % (11.9-15.9) 01/23/20 10:15 Plt Count 227 K/MM3 (134-434) 01/23/20 10:15 MPV 8.7 fl (7.5-11.1) 01/23/20 10:15 Sodium 144 mmol/L (136-145) 01/23/20 10:15 Potassium 3.5 mmol/L (3.5-5.1) 01/23/20 10:15 Chloride 108 mmol/L (98-107) H 01/23/20 10:15 Carbon Dioxide 27 mmol/L (21-32) 01/23/20 10:15 Anion Gap 9 MMOL/L (8-16) 01/23/20 10:15 BUN 13.7 mg/dL (7-18) 01/23/20 10:15 Creatinine 1.0 mg/dL (0.55-1.3) 01/23/20 10:15 Est GFR (CKD-EPI)AfAm 96.40 01/23/20 10:15 Est GFR (CKD-EPI)NonAf 83.18 01/23/20 10:15 Random Glucose 113 mg/dL (74-106) H 01/23/20 10:15 Fasting Glucose 99 mg/dL (74-106) 01/25/20 08:10 Calcium 9.1 mg/dL (8.5-10.1) 01/23/20 10:15 Total Bilirubin 0.3 mg/dL (0.2-1) 01/23/20 10:15 AST 21 U/L (15-37) 01/23/20 10:15 ALT 22 U/L (13-61) 01/23/20 10:15 Alkaline Phosphatase 58 U/L (45-117) 01/23/20 10:15 Total Protein 7.5 g/dl (6.4-8.2) 01/23/20 10:15 Albumin 3.8 g/dl (3.4-5.0) 01/23/20 10:15 Syphilis Serology Non-reactive (NONREACTIVE) 01/23/20 10:15 COVID-19 (JUNITO) Not detected (Not Detected) 01/23/20 10:15 fasting glucose 99 Assessment: 01/25/20 11:44 withdrawal symptom Plan: continue detox librium regimen,continue amlodipine 10 mgs po daily,enalapril 20 mgs po daily,bp monitoring,fluid
[2020-01-25] MEDS ORDERED: hydrOXYzine PAMOATE 25 MG CAPSULE (FP) PO PRN (11:55)
[2020-01-25] MEDS: chlordiazePOXIDE HCL 25 MG CAPSULE PO PRN (13:24)
[2020-01-25] MEDS: ATORVASTATIN CA 10 MG TABLET (FP) PO SCH (22:50)
[2020-01-25] MEDS: MELATONIN 5 MG TABLETS PO SCH (22:50)
[2020-01-25] MEDS: THIAMINE HCL 100 MG TABLET (FP) PO SCH (22:50)
[2020-01-26] MEDS ORDERED: chlordiazePOXIDE HCL 10 MG CAPSULE PO PRN
[2020-01-26] MEDS: chlordiazePOXIDE HCL 10 MG CAPSULE PO SCH ×4 (05:39→22:17)
[2020-01-26] MEDS: ENALAPRIL MALEATE 10 MG TABLET (FP) PO SCH (10:37)
[2020-01-26] MEDS: PRENATAL VITAMINS W/ FOLIC ACID TABLET (FP) PO SCH (10:37)
[2020-01-26] MEDS: levETIRAcetam 500 MG TABLET (FP) PO SCH ×2 (10:37→22:17)
[2020-01-26] MEDS: amLODIPine BESYLATE 10 MG TABLET (FP) PO SCH (10:37)
--- NOTE | 2020-01-26 11:33 | PN ---
S CIWA - CIWA Score Nausea/Vomitin-No Nausea/No Vomiting Muscle Tremors: 2 Anxiety: 1-Mildly Anxious Agitation: 1-Slight > Activity Paroxysmal Sweats: 1-Minimal Palms Moist Orientation: 0-Oriented Tacttile Disturbances: 0-None Auditory Disturbances: 0-None Visual Disturbances: 0-None Headache: 0-None Present CIWA-Ar Total Score: 5 BHS Progress Note (SOAP) Subjective: sweats Objective: 01/26/20 11:32 Vital Signs Temperature 98 F 01/26/20 09:00 Pulse Rate 87 01/26/20 09:00 Respiratory Rate 19 01/26/20 09:00 Blood Pressure 119/71 01/26/20 09:00 O2 Sat by Pulse Oximetry (%) 96 01/26/20 09:00 aaox3 lying in bed no acute distress Assessment: 01/26/20 11:32 mild withdrawals Plan: continue detox increase fluids possible d/c in am to rehab
[2020-01-26] MEDS: ATORVASTATIN CA 10 MG TABLET (FP) PO SCH (22:17)
[2020-01-26] MEDS: THIAMINE HCL 100 MG TABLET (FP) PO SCH (22:17)
[2020-01-26] MEDS: MELATONIN 5 MG TABLETS PO SCH (22:17)
[2020-01-27] MEDS ORDERED: chlordiazePOXIDE HCL 10 MG CAPSULE PO SCH (05:00)
--- NOTE | 2020-01-27 10:38 | PN ---
S CIWA - CIWA Score Nausea/Vomitin-No Nausea/No Vomiting Muscle Tremors: None Anxiety: 0-No Anxiety, at Ease Agitation: 1-Slight > Activity Paroxysmal Sweats: No Perspiration Orientation: 0-Oriented Tacttile Disturbances: 0-None Auditory Disturbances: 0-None Visual Disturbances: 0-None Headache: 0-None Present CIWA-Ar Total Score: 1 BHS Progress Note (SOAP) Subjective: alert,no complaint Objective: 01/27/20 10:36 Vital Signs Temperature 98 F 01/27/20 05:45 Pulse Rate 76 01/27/20 05:45 Respiratory Rate 16 01/27/20 05:45 Blood Pressure 123/75 01/27/20 05:45 O2 Sat by Pulse Oximetry (%) 98 01/27/20 05:45 Assessment: 01/27/20 10:37 no withdrawal symptom Plan: stable for discharge today,follow up with after care program as arrangement rehab
--- NOTE | 2020-01-27 10:40 | DS ---
[facility] Detox Discharge Summary Admission Date: 01/23/20 Discharge Date: 01/27/20 - History Present History: Alcohol Dependence Additional Comments: alert,oriented x 3 ambulation on the unit lung clear,on auscultation bilaterally abdomen soft,no pain,no tenderness stable for discharge today no withdrawal symptom follow up with after care program as arrangement [facility] total time of discharge 35 minutes Pertinent Past History: hypertension seizure hyperlipidemia depression arthritis ambulation with walker - Physical Exam Results Vital Signs: Vital Signs Temperature 98 F 01/27/20 05:45 Pulse Rate 76 01/27/20 05:45 Respiratory Rate 16 01/27/20 05:45 Blood Pressure 123/75 01/27/20 05:45 O2 Sat by Pulse Oximetry (%) 98 01/27/20 05:45 Pertinent Admission Physical Exam Findings: withdrawal signs and symptom Laboratory Last Values WBC 6.3 K/mm3 (4.0-10.0) 01/23/20 10:15 RBC 4.99 M/mm3 (4.00-5.60) 01/23/20 10:15 Hgb 14.4 GM/dL (11.7-16.9) 01/23/20 10:15 Hct 43.5 % (35.4-49) 01/23/20 10:15 MCV 87.2 fl (80-96) 01/23/20 10:15 MCH 29.0 pg (25.7-33.7) 01/23/20 10:15 MCHC 33.2 g/dl (32.0-35.9) 01/23/20 10:15 RDW 14.8 % (11.9-15.9) 01/23/20 10:15 Plt Count 227 K/MM3 (134-434) 01/23/20 10:15 MPV 8.7 fl (7.5-11.1) 01/23/20 10:15 Sodium 144 mmol/L (136-145) 01/23/20 10:15 Potassium 3.5 mmol/L (3.5-5.1) 01/23/20 10:15 Chloride 108 mmol/L (98-107) H 01/23/20 10:15 Carbon Dioxide 27 mmol/L (21-32) 01/23/20 10:15 Anion Gap 9 MMOL/L (8-16) 01/23/20 10:15 BUN 13.7 mg/dL (7-18) 01/23/20 10:15 Creatinine 1.0 mg/dL (0.55-1.3) 01/23/20 10:15 Est GFR (CKD-EPI)AfAm 96.40 01/23/20 10:15 Est GFR (CKD-EPI)NonAf 83.18 01/23/20 10:15 Random Glucose 113 mg/dL (74-106) H 01/23/20 10:15 Fasting Glucose 99 mg/dL (74-106) 01/25/20 08:10 Calcium 9.1 mg/dL (8.5-10.1) 01/23/20 10:15 Total Bilirubin 0.3 mg/dL (0.2-1) 01/23/20 10:15 AST 21 U/L (15-37) 01/23/20 10:15 ALT 22 U/L (13-61) 01/23/20 10:15 Alkaline Phosphatase 58 U/L (45-117) 01/23/20 10:15 Total Protein 7.5 g/dl (6.4-8.2) 01/23/20 10:15 Albumin 3.8 g/dl (3.4-5.0) 01/23/20 10:15 Levetiracetam <1.0 MCG/ML (10.0-40.0) L 01/23/20 14:00 Syphilis Serology Non-reactive (NONREACTIVE) 01/23/20 10:15 COVID-19 (JUNITO) Not detected (Not Detected) 01/23/20 10:15 Vital Signs Temperature 98 F 01/27/20 05:45 Pulse Rate 76 01/27/20 05:45 Respiratory Rate 16 01/27/20 05:45 Blood Pressure 123/75 01/27/20 05:45 O2 Sat by Pulse Oximetry (%) 98 01/27/20 05:45 - Treatment Hospital Course: Detox Protocol Followed, Detoxed Safely, Responded well, Discharged Condition Good, Rehab Referral Accepted Patient has Accepted a Rehab Referral to: [facility] - Medication Discharge Medications: Ambulatory Orders Enalapril Maleate [Vasotec -] 20 mg PO DAILY 05/09/15 Risperidone [Risperdal -] 2 mg PO HS #30 tablet 10/07/17 Sertraline HCl [Zoloft -] 50 mg PO DAILY #30 tablet 10/07/17 Amlodipine Besylate [Norvasc -] 10 mg PO DAILY #30 tablet 12/07/17 Atorvastatin Ca [Lipitor] 10 mg PO HS #30 tablet 12/07/17 Fluticasone Prop 0.05% Nasal [Flonase -] 1 spray NS DAILY #1 spray 12/07/17 levETIRAcetam [Keppra -] 500 mg PO BID #60 tablet 12/07/17 - AMA Did Patient Leave Against Medical Advice: No
[2020-01-27] MEDS: ENALAPRIL MALEATE 10 MG TABLET (FP) PO SCH (11:11)
[2020-01-27] MEDS: PRENATAL VITAMINS W/ FOLIC ACID TABLET (FP) PO SCH (11:11)
[2020-01-27] MEDS: levETIRAcetam 500 MG TABLET (FP) PO SCH (11:11)
[2020-01-27 12:57] VITALS: BP 121/85; PULSE 90; TEMP 97.6
[2020-01-27] MEDS: amLODIPine BESYLATE 10 MG TABLET (FP) PO SCH (13:24)
[2020-01-28] MEDS ORDERED: chlordiazePOXIDE HCL 10 MG CAPSULE PO ONE (05:00)
== END 2020-01-27 13:40 | disposition other institution (70) | DRG 775 ==
LOC: YASAS 09:18 → Y6N 09:59
PROVIDERS: ADMIT Allergy & Immunology; ATTEND Allergy & Immunology
PROC: HZ2ZZZZ Detoxification Services for Substance Abuse Treatment (ICD-10-PCS; principal; 2020-01-23)
DX: F10.230 Alcohol dependence with withdrawal, uncomplicated (principal); F10.282 Alcohol dependence with alcohol-induced sleep disorder; F10.24 Alcohol dependence with alcohol-induced mood disorder; F32.9 Major depressive disorder, single episode, unspecified; G40.909 Epilepsy, unspecified, not intractable, without status epilepticus; I10 Essential (primary) hypertension; E78.5 Hyperlipidemia, unspecified; M17.0 Bilateral primary osteoarthritis of knee; E66.9 Obesity, unspecified; Z68.31 Body mass index [BMI] 31.0-31.9, adult; Z59.0 Homelessness; Z99.89 Dependence on other enabling machines and devices
CPT/HCPCS: 36415; 80053; 80177; 82947; 85027; 86780; J0735; U0003

== ENCOUNTER 2020-01-27 13:49 | Inpatient (IN) | payer OTHER ==
[2020-01-27] MEDS ORDERED: guaiFENesin 200 MG/10 ML 10 ML UNIT-DOSE CUPS PO PRN (14:34)
[2020-01-27] MEDS ORDERED: NICOTINE POLACRILEX 2 MG GUM BUC PRN (14:34)
[2020-01-27] MEDS ORDERED: IBUPROFEN 400 MG TABLET (FP) PO PRN (14:34)
[2020-01-27] MEDS ORDERED: MAGNESIUM HYDROX 2400MG/30ML ORAL SUSPENSION 30 ML CUP PO PRN (14:34)
[2020-01-27] MEDS ORDERED: MENTHOL/PHENOL 1 EACH UD MM PRN (14:34)
[2020-01-27] MEDS ORDERED: MAGNESIUM CITRATE 300 ML BOTTLE PO PRN (14:34)
[2020-01-27] MEDS ORDERED: LOPERAMIDE HCL 2 MG CAPSULE PO PRN (14:34)
[2020-01-27] MEDS ORDERED: ACETAMINOPHEN 325 MG TABLET (FP) PO PRN (14:34)
[2020-01-27] MEDS ORDERED: P-EPHED 60MG/TRIPROLIDI 2.5MG TABLET PO PRN (14:34)
[2020-01-27] MEDS ORDERED: MAG HYDROX/AL HYDROX/SIMETH 30 ML UNIT-DOSE CUP PO PRN (14:34)
--- NOTE | 2020-01-27 14:34 | HP ---
[facility] Rehab Assess/Revision - Admission History Admitted to Rehab from: [address] Date of Admission to Rehab: 01/27/20 - Findings Detox History & Physical reviewed: Yes Concur with findings: Yes Comments/Additional Findings: Pt is a 55 y/o male admitted to rehab this afternoon from [address] [place] [id number] detox. Pt completed alcohol detox. saw pt sitting on the lounge chair. Pt reports fatigue and slightly drowsy but communicating coherently. PMH: HTN, HLD, arthritis bilateral knees, epilepsy, obesity, rolling walker to ambulate. PSH: none. Psych: MDD. Alert o x 3. nad,no resp. ambulates with walker. Rehab pt. maintain safety. increase po fluids. psych follow up to re-eval for psych medications. Inpatient Rehab Admission - Rehab Decision to Admit Inpatient rehab admission?: Yes - Initial Determination Are CD services needed?: Yes Free of communicable disease: Yes Not in need of hospitalization: Yes - Rehab Admission Criteria Previous failed treatment: Yes Poor recovery environment: Yes Comorbidities: Yes Lacks judgement: Yes Patient is meeting Inpatient Rehab admission criteria:: Yes
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
[2020-01-27] MEDS: THIAMINE HCL 100 MG TABLET (FP) PO SCH (21:01)
[2020-01-27] MEDS: MELATONIN 5 MG TABLETS PO SCH (21:01)
[2020-01-27] MEDS: levETIRAcetam 500 MG TABLET (FP) PO SCH (21:01)
[2020-01-27] MEDS: ATORVASTATIN CA 10 MG TABLET (FP) PO SCH (21:01)
[2020-01-27] MEDS: risperiDONE 1 MG TABLET PO SCH (21:02)
[2020-01-28] MEDS ORDERED: MASKS NR ONE (07:16)
[2020-01-28] MEDS: levETIRAcetam 500 MG TABLET (FP) PO SCH ×2 (09:54→21:22)
[2020-01-28] MEDS: amLODIPine BESYLATE 10 MG TABLET (FP) PO SCH (09:54)
[2020-01-28] MEDS: risperiDONE 1 MG TABLET PO SCH ×2 (09:54→21:22)
[2020-01-28] MEDS: SERTRALINE HCL 50 MG TABLET (FP) PO SCH (09:54)
[2020-01-28] MEDS: PRENATAL VITAMINS W/ FOLIC ACID TABLET (FP) PO SCH (09:55)
[2020-01-28] MEDS: ENALAPRIL MALEATE 10 MG TABLET (FP) PO SCH (09:55)
[2020-01-28] MEDS: NICOTINE 7 MG/24 HOURS TOPICAL PATCH TD SCH (09:56)
[2020-01-28] MEDS: FLUTICASONE PROP 0.05% 16 GM NASAL SPRAY NS SCH (09:56)
[2020-01-28] MEDS ORDERED: PATIENT'S OWN MEDICATION (NON-FORMULARY) (Enalapril Maleate [Vasotec -] 20 MG) PO SCH (10:00)
[2020-01-28] MEDS: ATORVASTATIN CA 10 MG TABLET (FP) PO SCH (21:22)
[2020-01-28] MEDS: THIAMINE HCL 100 MG TABLET (FP) PO SCH (21:22)
[2020-01-28] MEDS: MELATONIN 5 MG TABLETS PO SCH (21:23)
[2020-01-29] MEDS: FLUTICASONE PROP 0.05% 16 GM NASAL SPRAY NS SCH (09:16)
[2020-01-29] MEDS: SERTRALINE HCL 50 MG TABLET (FP) PO SCH (09:16)
[2020-01-29] MEDS: levETIRAcetam 500 MG TABLET (FP) PO SCH ×2 (09:16→21:26)
[2020-01-29] MEDS: amLODIPine BESYLATE 10 MG TABLET (FP) PO SCH (09:16)
[2020-01-29] MEDS: risperiDONE 1 MG TABLET PO SCH ×2 (09:18→21:27)
[2020-01-29] MEDS: PRENATAL VITAMINS W/ FOLIC ACID TABLET (FP) PO SCH (09:19)
[2020-01-29] MEDS: NICOTINE 7 MG/24 HOURS TOPICAL PATCH TD SCH (09:19)
[2020-01-29] MEDS: ENALAPRIL MALEATE 10 MG TABLET (FP) PO SCH (09:20)
[2020-01-29] MEDS: ATORVASTATIN CA 10 MG TABLET (FP) PO SCH (21:26)
[2020-01-29] MEDS: THIAMINE HCL 100 MG TABLET (FP) PO SCH (21:27)
[2020-01-29] MEDS: MELATONIN 5 MG TABLETS PO SCH (21:27)
[2020-01-30] MEDS: amLODIPine BESYLATE 10 MG TABLET (FP) PO SCH (10:18)
[2020-01-30] MEDS: FLUTICASONE PROP 0.05% 16 GM NASAL SPRAY NS SCH (10:18)
[2020-01-30] MEDS: levETIRAcetam 500 MG TABLET (FP) PO SCH ×2 (10:18→21:38)
[2020-01-30] MEDS: NICOTINE 7 MG/24 HOURS TOPICAL PATCH TD SCH (10:18)
[2020-01-30] MEDS: PRENATAL VITAMINS W/ FOLIC ACID TABLET (FP) PO SCH (10:18)
[2020-01-30] MEDS: risperiDONE 1 MG TABLET PO SCH ×2 (10:18→21:40)
[2020-01-30] MEDS: SERTRALINE HCL 50 MG TABLET (FP) PO SCH (10:18)
[2020-01-30] MEDS: ENALAPRIL MALEATE 10 MG TABLET (FP) PO SCH (10:19)
[2020-01-30] MEDS: THIAMINE HCL 100 MG TABLET (FP) PO SCH (21:39)
[2020-01-30] MEDS: MELATONIN 5 MG TABLETS PO SCH (21:39)
[2020-01-30] MEDS: ATORVASTATIN CA 10 MG TABLET (FP) PO SCH (21:39)
[2020-01-31] MEDS ORDERED: MASKS NR ONE (06:32)
[2020-01-31] MEDS: levETIRAcetam 500 MG TABLET (FP) PO SCH ×2 (10:12→21:01)
[2020-01-31] MEDS: amLODIPine BESYLATE 10 MG TABLET (FP) PO SCH (10:12)
[2020-01-31] MEDS: NICOTINE 7 MG/24 HOURS TOPICAL PATCH TD SCH (10:13)
[2020-01-31] MEDS: risperiDONE 1 MG TABLET PO SCH ×2 (10:13→21:01)
[2020-01-31] MEDS: SERTRALINE HCL 50 MG TABLET (FP) PO SCH (10:13)
[2020-01-31] MEDS: FLUTICASONE PROP 0.05% 16 GM NASAL SPRAY NS SCH (10:13)
[2020-01-31] MEDS: PRENATAL VITAMINS W/ FOLIC ACID TABLET (FP) PO SCH (10:13)
[2020-01-31] MEDS: ENALAPRIL MALEATE 10 MG TABLET (FP) PO SCH (10:17)
[2020-01-31] MEDS: ATORVASTATIN CA 10 MG TABLET (FP) PO SCH (21:01)
[2020-01-31] MEDS: THIAMINE HCL 100 MG TABLET (FP) PO SCH (21:02)
[2020-01-31] MEDS: MELATONIN 5 MG TABLETS PO SCH (21:02)
[2020-02-01] MEDS: amLODIPine BESYLATE 10 MG TABLET (FP) PO SCH (10:05)
[2020-02-01] MEDS: risperiDONE 1 MG TABLET PO SCH ×2 (10:05→21:50)
[2020-02-01] MEDS: PRENATAL VITAMINS W/ FOLIC ACID TABLET (FP) PO SCH (10:05)
[2020-02-01] MEDS: NICOTINE 7 MG/24 HOURS TOPICAL PATCH TD SCH (10:06)
[2020-02-01] MEDS: FLUTICASONE PROP 0.05% 16 GM NASAL SPRAY NS SCH (10:06)
[2020-02-01] MEDS: levETIRAcetam 500 MG TABLET (FP) PO SCH ×2 (10:06→21:50)
[2020-02-01] MEDS: SERTRALINE HCL 50 MG TABLET (FP) PO SCH (10:06)
[2020-02-01] MEDS: ENALAPRIL MALEATE 10 MG TABLET (FP) PO SCH (10:07)
[2020-02-01] MEDS: THIAMINE HCL 100 MG TABLET (FP) PO SCH (21:50)
[2020-02-01] MEDS: MELATONIN 5 MG TABLETS PO SCH (21:50)
[2020-02-01] MEDS: ATORVASTATIN CA 10 MG TABLET (FP) PO SCH (21:50)
[2020-02-02] MEDS: SERTRALINE HCL 50 MG TABLET (FP) PO SCH (09:59)
[2020-02-02] MEDS: levETIRAcetam 500 MG TABLET (FP) PO SCH ×2 (09:59→22:21)
[2020-02-02] MEDS: amLODIPine BESYLATE 10 MG TABLET (FP) PO SCH (09:59)
[2020-02-02] MEDS: NICOTINE 7 MG/24 HOURS TOPICAL PATCH TD SCH (09:59)
[2020-02-02] MEDS: PRENATAL VITAMINS W/ FOLIC ACID TABLET (FP) PO SCH (09:59)
[2020-02-02] MEDS: risperiDONE 1 MG TABLET PO SCH ×2 (09:59→22:22)
[2020-02-02] MEDS: FLUTICASONE PROP 0.05% 16 GM NASAL SPRAY NS SCH (09:59)
[2020-02-02] MEDS: ENALAPRIL MALEATE 10 MG TABLET (FP) PO SCH (10:00)
[2020-02-02] MEDS: THIAMINE HCL 100 MG TABLET (FP) PO SCH (22:21)
[2020-02-02] MEDS: ATORVASTATIN CA 10 MG TABLET (FP) PO SCH (22:21)
[2020-02-02] MEDS: MELATONIN 5 MG TABLETS PO SCH (22:21)
[2020-02-03] MEDS: levETIRAcetam 500 MG TABLET (FP) PO SCH ×2 (09:55→22:21)
[2020-02-03] MEDS: SERTRALINE HCL 50 MG TABLET (FP) PO SCH (09:55)
[2020-02-03] MEDS: amLODIPine BESYLATE 10 MG TABLET (FP) PO SCH (09:55)
[2020-02-03] MEDS: risperiDONE 1 MG TABLET PO SCH ×2 (09:55→22:21)
[2020-02-03] MEDS: PRENATAL VITAMINS W/ FOLIC ACID TABLET (FP) PO SCH (09:56)
[2020-02-03] MEDS: FLUTICASONE PROP 0.05% 16 GM NASAL SPRAY NS SCH (09:56)
[2020-02-03] MEDS: NICOTINE 7 MG/24 HOURS TOPICAL PATCH TD SCH (09:56)
[2020-02-03] MEDS: ENALAPRIL MALEATE 10 MG TABLET (FP) PO SCH (09:56)
[2020-02-03] MEDS: hydrOXYzine PAMOATE 25 MG CAPSULE (FP) PO PRN (22:21)
[2020-02-03] MEDS: THIAMINE HCL 100 MG TABLET (FP) PO SCH (22:21)
[2020-02-03] MEDS: ATORVASTATIN CA 10 MG TABLET (FP) PO SCH (22:21)
[2020-02-03] MEDS: MELATONIN 5 MG TABLETS PO SCH (22:22)
[2020-02-04] MEDS: amLODIPine BESYLATE 10 MG TABLET (FP) PO SCH (09:32)
[2020-02-04] MEDS: levETIRAcetam 500 MG TABLET (FP) PO SCH ×2 (09:32→21:39)
[2020-02-04] MEDS: risperiDONE 1 MG TABLET PO SCH ×2 (09:32→21:40)
[2020-02-04] MEDS: NICOTINE 7 MG/24 HOURS TOPICAL PATCH TD SCH (09:33)
[2020-02-04] MEDS: SERTRALINE HCL 50 MG TABLET (FP) PO SCH (09:33)
[2020-02-04] MEDS: FLUTICASONE PROP 0.05% 16 GM NASAL SPRAY NS SCH (09:33)
[2020-02-04] MEDS: PRENATAL VITAMINS W/ FOLIC ACID TABLET (FP) PO SCH (09:33)
[2020-02-04] MEDS: ENALAPRIL MALEATE 10 MG TABLET (FP) PO SCH (09:36)
[2020-02-04] MEDS: ATORVASTATIN CA 10 MG TABLET (FP) PO SCH (21:39)
[2020-02-04] MEDS: MELATONIN 5 MG TABLETS PO SCH (21:41)
[2020-02-04] MEDS: THIAMINE HCL 100 MG TABLET (FP) PO SCH (21:42)
[2020-02-05] MEDS: PRENATAL VITAMINS W/ FOLIC ACID TABLET (FP) PO SCH (09:55)
[2020-02-05] MEDS: amLODIPine BESYLATE 10 MG TABLET (FP) PO SCH (09:55)
[2020-02-05] MEDS: SERTRALINE HCL 50 MG TABLET (FP) PO SCH (09:55)
[2020-02-05] MEDS: levETIRAcetam 500 MG TABLET (FP) PO SCH ×2 (09:55→21:10)
[2020-02-05] MEDS: risperiDONE 1 MG TABLET PO SCH ×2 (09:56→21:10)
[2020-02-05] MEDS: FLUTICASONE PROP 0.05% 16 GM NASAL SPRAY NS SCH (09:56)
[2020-02-05] MEDS: NICOTINE 7 MG/24 HOURS TOPICAL PATCH TD SCH (09:56)
[2020-02-05] MEDS: ENALAPRIL MALEATE 10 MG TABLET (FP) PO SCH (09:57)
[2020-02-05] MEDS: MELATONIN 5 MG TABLETS PO SCH (21:10)
[2020-02-05] MEDS: ATORVASTATIN CA 10 MG TABLET (FP) PO SCH (21:10)
[2020-02-05] MEDS: THIAMINE HCL 100 MG TABLET (FP) PO SCH (21:10)
[2020-02-05] MEDS: hydrOXYzine PAMOATE 25 MG CAPSULE (FP) PO PRN (21:10)
[2020-02-06] MEDS: FLUTICASONE PROP 0.05% 16 GM NASAL SPRAY NS SCH (10:12)
[2020-02-06] MEDS: amLODIPine BESYLATE 10 MG TABLET (FP) PO SCH (10:12)
[2020-02-06] MEDS: ENALAPRIL MALEATE 10 MG TABLET (FP) PO SCH (10:12)
[2020-02-06] MEDS: NICOTINE 7 MG/24 HOURS TOPICAL PATCH TD SCH (10:12)
[2020-02-06] MEDS: SERTRALINE HCL 50 MG TABLET (FP) PO SCH (10:12)
[2020-02-06] MEDS: risperiDONE 1 MG TABLET PO SCH ×2 (10:12→22:22)
[2020-02-06] MEDS: levETIRAcetam 500 MG TABLET (FP) PO SCH ×2 (10:12→22:22)
[2020-02-06] MEDS: PRENATAL VITAMINS W/ FOLIC ACID TABLET (FP) PO SCH (10:13)
[2020-02-06] MEDS: THIAMINE HCL 100 MG TABLET (FP) PO SCH (22:22)
[2020-02-06] MEDS: ATORVASTATIN CA 10 MG TABLET (FP) PO SCH (22:22)
[2020-02-06] MEDS: MELATONIN 5 MG TABLETS PO SCH (22:23)
[2020-02-07 06:54] VITALS: BP 145/87; PULSE 83; TEMP 97.7
--- NOTE | 2020-02-07 08:49 | PN ---
[facility] Progress Note Note: Patient is discharged today. Scripts for 30 days supply of medications(Zoloft 50 mg/day, Risperdal 0.5 mg/bid) are electronically transmitted to [facility] [place] [address]
[2020-02-07] MEDS: risperiDONE 1 MG TABLET PO SCH (10:07)
[2020-02-07] MEDS: ENALAPRIL MALEATE 10 MG TABLET (FP) PO SCH (10:08)
[2020-02-07] MEDS: amLODIPine BESYLATE 10 MG TABLET (FP) PO SCH (10:08)
[2020-02-07] MEDS: NICOTINE 7 MG/24 HOURS TOPICAL PATCH TD SCH (10:08)
[2020-02-07] MEDS: levETIRAcetam 500 MG TABLET (FP) PO SCH (10:08)
[2020-02-07] MEDS: SERTRALINE HCL 50 MG TABLET (FP) PO SCH (10:08)
[2020-02-07] MEDS: PRENATAL VITAMINS W/ FOLIC ACID TABLET (FP) PO SCH (10:08)
[2020-02-07] MEDS: FLUTICASONE PROP 0.05% 16 GM NASAL SPRAY NS SCH (10:09)
--- NOTE | 2020-02-07 10:51 | DS ---
[facility] Rehab Discharge Summary - [facility] Rehab Discharge Summary Admission Date: 01/27/20 Discharge Date: 02/07/20 - History Present History: Alcohol dependence Pertinent Past History: HTN HLD Arthritis both knees Seizure disorder obesity Hx Edema of Feet Walker as ambulatory Aid - Discharge Physical Exam Vital Signs: Vital Signs Temperature 97.7 F 02/07/20 05:58 Pulse Rate 83 02/07/20 05:58 Respiratory Rate 16 02/07/20 05:58 Blood Pressure 145/87 02/07/20 05:58 O2 Sat by Pulse Oximetry (%) 96 02/07/20 05:58 Pertinent Admission Physical Exam Findings: S/P detox Walker as ambulatory aid-slow to get around - Treatment Discharge Condition: Discharge condition good, Rehabilitated safely, Responded well, Outpatient referral accepted Hospital Course: Referred to [facility] for CD aftercare - Medication Discharge Medications: Ambulatory Orders Enalapril Maleate [Vasotec -] 20 mg PO DAILY 05/09/15 Risperidone [Risperdal -] 2 mg PO HS #30 tablet 10/07/17 Sertraline HCl [Zoloft -] 50 mg PO DAILY #30 tablet 10/07/17 Fluticasone Prop 0.05% Nasal [Flonase -] 1 spray NS DAILY #1 spray 12/07/17 Amlodipine Besylate [Norvasc -] 10 mg PO DAILY #30 tablet 02/07/20 Atorvastatin Ca [Lipitor] 10 mg PO HS #30 tablet 02/07/20 Enalapril Maleate 20 mg PO DAILY #30 tablet 02/07/20 Risperidone [Risperdal -] 0.5 mg PO BID #14 tablet 02/07/20 Sertraline HCl [Zoloft -] 50 mg PO DAILY #30 tablet 02/07/20 levETIRAcetam [Keppra -] 500 mg PO BID #60 tablet 02/07/20 - Medication-Assisted Treatment (MAT) Medication-Assisted Treatment (MAT): No - Discharge Instructions Diet, activity, other medical instructions: Diet:JHONATAN/Low fat diet Activity: oob ad radha with walker Other medical instructions:Follow up with CD aftercare with [facility] as scheduled. - Diagnosis (1) Alcohol dependence Status: Chronic Qualifiers: Substance use status: uncomplicated Qualified Code(s): F10.20 - Alcohol dependence, uncomplicated (2) Abnormal gait Status: Chronic (3) Arthritis of both knees Status: Chronic (4) HTN (hypertension) Status: Chronic Qualifiers: Hypertension type: essential hypertension (5) Hyperlipidemia Status: Chronic Qualifiers: Hyperlipidemia type: unspecified Qualified Code(s): E78.5 - Hyperlipidemia, unspecified (6) Obesity (BMI 35.0-39.9 without comorbidity) Status: Chronic (7) Seizure disorder Status: Chronic (8) Walker as ambulation aid Status: Chronic - Follow-up Referral Minutes to complete discharge: 35 - AMA Did Patient Leave Against Medical Advice: No Additional Comments: Courtesy Rx as above electornically sent to [facility] for scrap [facility].
== END 2020-02-07 11:00 | disposition other institution (70) | DRG 772 ==
LOC: YASAS 13:49 → Y5N 13:50
PROVIDERS: ADMIT Allergy & Immunology; ATTEND Allergy & Immunology
PROC: HZ42ZZZ Group Counseling for Substance Abuse Treatment, Cognitive-Behavioral (ICD-10-PCS; principal; 2020-01-27)
DX: F10.20 Alcohol dependence, uncomplicated (principal); F10.24 Alcohol dependence with alcohol-induced mood disorder; G40.909 Epilepsy, unspecified, not intractable, without status epilepticus; I10 Essential (primary) hypertension; E78.5 Hyperlipidemia, unspecified; M17.0 Bilateral primary osteoarthritis of knee; R60.0 Localized edema; R26.89 Other abnormalities of gait and mobility; E66.9 Obesity, unspecified; Z68.34 Body mass index [BMI] 34.0-34.9, adult; Z99.89 Dependence on other enabling machines and devices
CPT/HCPCS: J2794

== ENCOUNTER 2020-09-06 11:19 | Inpatient (IN) | payer OTHER ==
[2020-09-06 13:18] VITALS: BMI 30.7
[2020-09-06] MEDS ORDERED: chlordiazePOXIDE HCL 25 MG CAPSULE PO PRN (14:19)
[2020-09-06] MEDS ORDERED: METHOCARBAMOL 500 MG TABLET PO PRN (14:19)
[2020-09-06] MEDS ORDERED: ACETAMINOPHEN 325 MG TABLET (FP) PO PRN (14:19)
[2020-09-06] MEDS ORDERED: MAGNESIUM HYDROX 2400MG/30ML ORAL SUSPENSION 30 ML CUP PO PRN (14:19)
[2020-09-06] MEDS ORDERED: ONDANSETRON *ODT* 4 MG TABLET SL PRN (14:19)
[2020-09-06] MEDS ORDERED: IBUPROFEN 400 MG TABLET (FP) PO PRN (14:19)
[2020-09-06] MEDS ORDERED: MAGNESIUM CITRATE 300 ML BOTTLE PO PRN (14:19)
[2020-09-06] MEDS ORDERED: MENTHOL/PHENOL 1 EACH UD MM PRN (14:19)
[2020-09-06] MEDS ORDERED: BISMUTH SUBSALICYLATE 262 MG/15 ML BTL PO PRN (14:19)
[2020-09-06] MEDS ORDERED: MAG HYDROX/AL HYDROX/SIMETH 30 ML UNIT-DOSE CUP PO PRN (14:19)
[2020-09-06] MEDS ORDERED: PNEUMOC 13-VAL CONJ-DIP CRM/PF 0.5 ML DISP.SYRIN IM ONE (14:48)
[2020-09-06] MEDS: chlordiazePOXIDE HCL 25 MG CAPSULE PO SCH ×2 (16:01→22:52)
[2020-09-06] MEDS: amLODIPine BESYLATE 10 MG TABLET (FP) PO SCH (16:01)
[2020-09-06] MEDS: PRENATAL VITAMINS W/ FOLIC ACID TABLET (FP) PO SCH (16:03)
[2020-09-06 17:08] LABS: CALCIUM 9.9 mg/dL (8.5-10.1)
[2020-09-06 17:09] LABS: BLOOD UREA NITROGEN 9.1 mg/dL (7-18)
[2020-09-06 17:12] LABS: CREATININE 0.9 mg/dL (0.55-1.3); HEMATOCRIT 45.4 % (35.4-49); HEMOGLOBIN 15.2 GM/dL (11.7-16.9); MCH 28.9 pg (25.7-33.7); MCHC 33.5 g/dl (32.0-35.9); MEAN CELL VOLUME 86.3 fl (80-96); MEAN PLT VOLUME 9.1 fl (7.5-11.1); PLATELET COUNT 258 K/MM3 (134-434); RBC 5.26 M/mm3 (4.00-5.60); RDW 14.5 % (11.9-15.9); WHITE BLOOD COUNT 7.9 K/mm3 (4.0-10.0)
[2020-09-06 17:13] LABS: BILIRUBIN,TOTAL 0.5 mg/dL (0.2-1); TOT PROT 7.9 g/dl (6.4-8.2)
[2020-09-06] MEDS: hydrOXYzine PAMOATE 25 MG CAPSULE (FP) PO SCH ×2 (19:08→23:11)
[2020-09-06] MEDS ORDERED: MELATONIN 5 MG TABLETS PO SCH (22:00)
[2020-09-06] MEDS: THIAMINE HCL 100 MG TABLET (FP) PO SCH (22:52)
[2020-09-06] MEDS ORDERED: METOPROLOL TARTRATE 25 MG TABLET (FP) PO ONE (23:52)
[2020-09-07] MEDS: chlordiazePOXIDE HCL 25 MG CAPSULE PO SCH ×4 (06:48→22:30)
[2020-09-07] MEDS: hydrOXYzine PAMOATE 25 MG CAPSULE (FP) PO SCH ×5 (06:48→22:30)
[2020-09-07] MEDS: ACETAMINOPHEN 325 MG TABLET (FP) PO PRN (06:49)
[2020-09-07] MEDS ORDERED: MELATONIN 5 MG TABLETS PO PRN (09:25)
[2020-09-07] MEDS: amLODIPine BESYLATE 10 MG TABLET (FP) PO SCH (10:30)
[2020-09-07] MEDS: PRENATAL VITAMINS W/ FOLIC ACID TABLET (FP) PO SCH (10:30)
[2020-09-07] MEDS: risperiDONE 0.5 MG TABLET PO SCH ×2 (10:32→22:29)
[2020-09-07] MEDS: SERTRALINE HCL 50 MG TABLET (FP) PO SCH (10:33)
[2020-09-07] MEDS ORDERED: PNEUMOCOCCAL 23 VACCINE 0.5 ML VIAL IM ONE (12:00)
[2020-09-07] MEDS ORDERED: FLU VACCINE (FLULAVAL) PF 60 MCG/0.5 ML SYRINGE 2020-2021 IM ONE (12:00)
[2020-09-07 13:13] LABS: HIV INTERPRETATION NEGATIVE (NEGATIVE)
[2020-09-07] MEDS: THIAMINE HCL 100 MG TABLET (FP) PO SCH (22:30)
[2020-09-08] MEDS: chlordiazePOXIDE HCL 25 MG CAPSULE PO SCH ×4 (05:30→22:46)
[2020-09-08] MEDS: hydrOXYzine PAMOATE 25 MG CAPSULE (FP) PO SCH ×5 (05:30→22:46)
[2020-09-08] MEDS: ACETAMINOPHEN 325 MG TABLET (FP) PO PRN (05:37)
[2020-09-08] MEDS: risperiDONE 0.5 MG TABLET PO SCH ×2 (12:54→22:46)
[2020-09-08] MEDS: amLODIPine BESYLATE 10 MG TABLET (FP) PO SCH (12:55)
[2020-09-08] MEDS: PRENATAL VITAMINS W/ FOLIC ACID TABLET (FP) PO SCH (12:55)
[2020-09-08] MEDS: SERTRALINE HCL 50 MG TABLET (FP) PO SCH (12:56)
[2020-09-08] MEDS: THIAMINE HCL 100 MG TABLET (FP) PO SCH (22:46)
[2020-09-09] MEDS ORDERED: chlordiazePOXIDE HCL 10 MG CAPSULE PO PRN
[2020-09-09] MEDS: chlordiazePOXIDE HCL 10 MG CAPSULE PO SCH ×4 (06:35→23:19)
[2020-09-09] MEDS: hydrOXYzine PAMOATE 25 MG CAPSULE (FP) PO SCH ×3 (06:46→13:35)
[2020-09-09] MEDS: PRENATAL VITAMINS W/ FOLIC ACID TABLET (FP) PO SCH (10:12)
[2020-09-09] MEDS: risperiDONE 0.5 MG TABLET PO SCH ×2 (10:12→23:19)
[2020-09-09] MEDS: amLODIPine BESYLATE 10 MG TABLET (FP) PO SCH (10:12)
[2020-09-09] MEDS: SERTRALINE HCL 50 MG TABLET (FP) PO SCH (10:12)
[2020-09-09] MEDS: THIAMINE HCL 100 MG TABLET (FP) PO SCH (23:19)
[2020-09-09] MEDS: TAMSULOSIN HCL 0.4 MG CAP PO SCH (23:19)
[2020-09-10 06:26] LABS: SARS-CoV-2 NAA Not Detected (Not Detected)
[2020-09-10] MEDS: chlordiazePOXIDE HCL 10 MG CAPSULE PO SCH ×2 (07:13→18:28)
[2020-09-10] MEDS: amLODIPine BESYLATE 10 MG TABLET (FP) PO SCH (10:35)
[2020-09-10] MEDS: risperiDONE 0.5 MG TABLET PO SCH (10:35)
[2020-09-10] MEDS: LISINOPRIL 20 MG TABLET PO SCH (10:35)
[2020-09-10] MEDS: SERTRALINE HCL 50 MG TABLET (FP) PO SCH (10:35)
[2020-09-10] MEDS: PRENATAL VITAMINS W/ FOLIC ACID TABLET (FP) PO SCH (10:35)
[2020-09-10] MEDS: LACTULOSE 20 GM/30 ML UDC (FOR ORAL USE ONLY) PO SCH (13:51)
[2020-09-11] MEDS: TAMSULOSIN HCL 0.4 MG CAP PO SCH ×2 (00:05→21:40)
[2020-09-11] MEDS: LACTULOSE 20 GM/30 ML UDC (FOR ORAL USE ONLY) PO SCH ×4 (00:05→21:41)
[2020-09-11] MEDS: risperiDONE 0.5 MG TABLET PO SCH ×3 (00:06→21:40)
[2020-09-11] MEDS: THIAMINE HCL 100 MG TABLET (FP) PO SCH ×2 (00:07→21:40)
[2020-09-11] MEDS ORDERED: chlordiazePOXIDE HCL 10 MG CAPSULE PO ONE (05:00)
[2020-09-11] MEDS: amLODIPine BESYLATE 10 MG TABLET (FP) PO SCH (10:38)
[2020-09-11] MEDS: SERTRALINE HCL 50 MG TABLET (FP) PO SCH (10:38)
[2020-09-11] MEDS: LISINOPRIL 20 MG TABLET PO SCH (10:38)
[2020-09-11] MEDS: PRENATAL VITAMINS W/ FOLIC ACID TABLET (FP) PO SCH (10:38)
[2020-09-12] MEDS: LACTULOSE 20 GM/30 ML UDC (FOR ORAL USE ONLY) PO SCH ×3 (06:40→22:26)
[2020-09-12] MEDS: amLODIPine BESYLATE 10 MG TABLET (FP) PO SCH (11:06)
[2020-09-12] MEDS: PRENATAL VITAMINS W/ FOLIC ACID TABLET (FP) PO SCH (11:06)
[2020-09-12] MEDS: SERTRALINE HCL 50 MG TABLET (FP) PO SCH (11:06)
[2020-09-12] MEDS: LISINOPRIL 20 MG TABLET PO SCH (11:06)
[2020-09-12] MEDS: risperiDONE 0.5 MG TABLET PO SCH ×2 (11:07→22:26)
[2020-09-12 11:29] LABS: BASO % 0.2 % (0-2.0); EOS % 1.4 % (0-4.5); HEMOGLOBIN 14.2 GM/dL (11.7-16.9); LYMPH % 30.9 % (8-40); MCH 29.1 pg (25.7-33.7); MCHC 33.7 g/dl (32.0-35.9); MEAN CELL VOLUME 86.3 fl (80-96); MEAN PLT VOLUME 9.4 fl (7.5-11.1); MONO % 10.5 % (3.8-10.2); PLATELET COUNT 242 K/MM3 (134-434); RBC 4.87 M/mm3 (4.00-5.60); RDW 14.7 % (11.9-15.9); WHITE BLOOD COUNT 5.8 K/mm3 (4.0-10.0)
[2020-09-12 11:34] LABS: INR 0.97 (0.83-1.09); PROTHROMBIN TIME (PATIENT) 11.7 SEC (9.7-13.0)
[2020-09-12 11:43] LABS: CALCIUM 9.4 mg/dL (8.5-10.1)
[2020-09-12 11:44] LABS: ALBUMIN 3.6 g/dl (3.4-5.0); BLOOD UREA NITROGEN 13.8 mg/dL (7-18)
[2020-09-12 11:47] LABS: CREATININE 0.9 mg/dL (0.55-1.3)
[2020-09-12 11:48] LABS: BILIRUBIN,TOTAL 0.5 mg/dL (0.2-1)
[2020-09-12 11:49] LABS: TOT PROT 7.2 g/dl (6.4-8.2)
[2020-09-12] MEDS: TAMSULOSIN HCL 0.4 MG CAP PO SCH (22:26)
[2020-09-12] MEDS: THIAMINE HCL 100 MG TABLET (FP) PO SCH (22:26)
[2020-09-13 02:20] VITALS: BP 144/98; PULSE 88; TEMP 97.7
== END 2020-09-13 06:49 | disposition short-term general hospital (02) | DRG 775 ==
LOC: YASAS 11:19 → Y6N 14:10
PROVIDERS: ADMIT Allergy & Immunology; ATTEND Allergy & Immunology
PROC: HZ2ZZZZ Detoxification Services for Substance Abuse Treatment (ICD-10-PCS; principal; 2020-09-06)
DX: F10.230 Alcohol dependence with withdrawal, uncomplicated (principal); F10.282 Alcohol dependence with alcohol-induced sleep disorder; F10.24 Alcohol dependence with alcohol-induced mood disorder; F32.9 Major depressive disorder, single episode, unspecified; G40.909 Epilepsy, unspecified, not intractable, without status epilepticus; I10 Essential (primary) hypertension; N40.0 Benign prostatic hyperplasia without lower urinary tract symptoms; M17.0 Bilateral primary osteoarthritis of knee; R79.89 Other specified abnormal findings of blood chemistry; R41.82 Altered mental status, unspecified; R26.89 Other abnormalities of gait and mobility; R29.6 Repeated falls; Z99.89 Dependence on other enabling machines and devices
CPT/HCPCS: 36415; 70450-TC; 80053; 82140; 85025; 85027; 85610; 86780; 87389; 90732; C9803; G0008; G0009; Q2036; U0003; U0005

== ENCOUNTER 2020-09-10 19:11 | Emergency (ER) | payer OTHER ==
[2020-09-10 19:37] VITALS: TEMP 98.4; BMI 37.1
[2020-09-10] MEDS ORDERED: ACETAMINOPHEN 325 MG TABLET (FP) PO ONE (20:20)
[2020-09-10] MEDS ORDERED: ACETAMINOPHEN 325 MG TABLET (FP) ONE (20:53)
[2020-09-11] MEDS ORDERED: MAG HYDROX/AL HYDROX/SIMETH 30 ML UNIT-DOSE CUP PO ONE (00:52)
[2020-09-11 01:11] VITALS: PULSE 80
[2020-09-11 01:13] VITALS: BP 137/90
== END 2020-09-11 01:13 | disposition home or self-care (01) ==
LOC: JER 19:11
DX: M25.562 Pain in left knee (principal)
CPT/HCPCS: 70450-TC; 73560-TC-LT-FY; 73560-TC-RT-FY; 99285-25

== ENCOUNTER 2020-09-13 03:02 | Inpatient (IN) | payer OTHER ==
[2020-09-13 04:58] LABS: BASO % 0.3 % (0-2.0); EOS % 1.8 % (0-4.5); HEMATOCRIT 41.4 % (35.4-49); HEMOGLOBIN 13.8 GM/dL (11.7-16.9); LYMPH % 30.9 % (8-40); MCH 29.1 pg (25.7-33.7); MCHC 33.4 g/dl (32.0-35.9); MEAN CELL VOLUME 87.1 fl (80-96); MEAN PLT VOLUME 9.3 fl (7.5-11.1); MONO % 14.5 % (3.8-10.2); NEUT % 52.5 % (42.8-82.8); PLATELET COUNT 209 K/MM3 (134-434); RBC 4.75 M/mm3 (4.00-5.60); RDW 14.5 % (11.9-15.9); WHITE BLOOD COUNT 5.7 K/mm3 (4.0-10.0)
[2020-09-13 05:16] LABS: CHLORIDE 108 mmol/L (98-107); SODIUM 142 mmol/L (136-145)
[2020-09-13 05:18] LABS: ALBUMIN 3.6 g/dl (3.4-5.0); ANION GAP 7 MMOL/L (8-16); BLOOD UREA NITROGEN 14.4 mg/dL (7-18); CALCIUM 8.9 mg/dL (8.5-10.1); CO2 26 mmol/L (21-32)
[2020-09-13 05:19] LABS: GLUCOSE,RANDOM 100 mg/dL (74-106)
[2020-09-13 05:21] LABS: SGPT/ALT 40 U/L (13-61)
[2020-09-13 05:22] LABS: CREATININE 0.9 mg/dL (0.55-1.3); SGOT/AST 25 U/L (15-37)
[2020-09-13 05:23] LABS: BILIRUBIN,TOTAL 0.4 mg/dL (0.2-1); TOT PROT 7.1 g/dl (6.4-8.2)
[2020-09-13 05:24] LABS: ALK PHOS 60 U/L (45-117)
[2020-09-13] MEDS ORDERED: NIFEdipine 10 MG CAPSULE (FP) PO ONE (09:52)
[2020-09-13] MEDS ORDERED: amLODIPine BESYLATE 5 MG TABLET (FP) PO SCH (10:00)
[2020-09-13] MEDS ORDERED: FOLIC ACID INJECTION - 1 MG, THIAMINE HCL 100 MG, MULTIVIT INJECTION ADULT 10 ML in SOD... IVPB ONE (10:00)
[2020-09-13] MEDS ORDERED: LISINOPRIL 20 MG TABLET ONE ×2 (10:55→11:43)
[2020-09-13] MEDS ORDERED: ENOXAPARIN NA (PORCINE) 40 MG/0.4 ML DISP.SYRIN SQ ONE (10:55)
[2020-09-13] MEDS ORDERED: amLODIPine BESYLATE 5 MG TABLET (FP) ONE (11:14)
[2020-09-13 11:26] LABS: URINE APPEARANCE CLEAR; URINE BILIRUBIN NEGATIVE (NEGATIVE); URINE COLOR YELLOW; URINE GLUCOSE (UA) NEGATIVE (NEGATIVE); URINE KETONE NEGATIVE (NEGATIVE); URINE LEUK ESTERASE NEGATIVE (NEGATIVE); URINE NITRITE NEGATIVE (NEGATIVE); URINE PROTEIN NEGATIVE (NEGATIVE); URINE UROBILINOGEN 0.2 mg/dL (0.2-1.0)
[2020-09-13] MEDS: ENOXAPARIN NA (PORCINE) 40 MG/0.4 ML DISP.SYRIN SQ SCH (11:35)
[2020-09-13] MEDS: amLODIPine BESYLATE 10 MG TABLET (FP) PO SCH (11:47)
[2020-09-13] MEDS: LISINOPRIL 20 MG TABLET PO SCH (11:57)
[2020-09-13 16:04] VITALS: BMI 33.0
[2020-09-14] MEDS ORDERED: LACTULOSE 20 GM/30 ML UDC (FOR ORAL USE ONLY) PO ONE (08:02)
[2020-09-14 08:12] LABS: BASO % 0.5 % (0-2.0); EOS % 1.6 % (0-4.5); HEMATOCRIT 42.1 % (35.4-49); LYMPH % 26.1 % (8-40); MCH 28.9 pg (25.7-33.7); MCHC 33.3 g/dl (32.0-35.9); MEAN CELL VOLUME 86.8 fl (80-96); NEUT % 59.8 % (42.8-82.8); PLATELET COUNT 227 K/MM3 (134-434); RBC 4.85 M/mm3 (4.00-5.60); RDW 14.2 % (11.9-15.9); WHITE BLOOD COUNT 5.1 K/mm3 (4.0-10.0)
[2020-09-14 08:25] LABS: CHLORIDE 104 mmol/L (98-107); SODIUM 136 mmol/L (136-145)
[2020-09-14 08:31] LABS: ALBUMIN 3.4 g/dl (3.4-5.0); CALCIUM 9.4 mg/dL (8.5-10.1)
[2020-09-14 08:32] LABS: ANION GAP 6 MMOL/L (8-16); BLOOD UREA NITROGEN 14.3 mg/dL (7-18); CO2 27 mmol/L (21-32); GLUCOSE,RANDOM 85 mg/dL (74-106); MAGNESIUM 2.3 mg/dL (1.8-2.4)
[2020-09-14 08:35] LABS: CREATININE 0.8 mg/dL (0.55-1.3); PHOSPHOROUS 3.8 mg/dL (2.5-4.9); SGOT/AST 24 U/L (15-37); SGPT/ALT 41 U/L (13-61)
[2020-09-14 08:38] LABS: ALK PHOS 61 U/L (45-117)
[2020-09-14 08:39] LABS: BILIRUBIN,TOTAL 0.5 mg/dL (0.2-1)
[2020-09-14] MEDS: ENOXAPARIN NA (PORCINE) 40 MG/0.4 ML DISP.SYRIN SQ SCH (09:35)
[2020-09-14] MEDS: LISINOPRIL 20 MG TABLET PO SCH (09:37)
[2020-09-14] MEDS: amLODIPine BESYLATE 10 MG TABLET (FP) PO SCH ×2 (09:37)
[2020-09-14] MEDS ORDERED: amLODIPine BESYLATE 10 MG TABLET (FP) PO SCH (10:00)
[2020-09-14] MEDS ORDERED: amLODIPine BESYLATE 5 MG TABLET (FP) PO SCH (10:00)
[2020-09-14] MEDS ORDERED: LACTULOSE 20 GM/30 ML UDC (FOR ORAL USE ONLY) PO PRN (14:04)
[2020-09-14] MEDS: FOLIC ACID 1 MG TABLET (FP) PO SCH (15:19)
[2020-09-14] MEDS: MULTIVITAMINS (DAILY MVI) TABLET (FP) PO SCH (15:19)
[2020-09-14] MEDS: THIAMINE HCL 100 MG TABLET (FP) PO SCH (15:19)
[2020-09-15 08:36] LABS: BASO % 0.5 % (0-2.0); EOS % 1.1 % (0-4.5); HEMATOCRIT 42.2 % (35.4-49); HEMOGLOBIN 14.6 GM/dL (11.7-16.9); LYMPH % 35.4 % (8-40); MCH 29.6 pg (25.7-33.7); MCHC 34.5 g/dl (32.0-35.9); MEAN CELL VOLUME 85.8 fl (80-96); MEAN PLT VOLUME 8.7 fl (7.5-11.1); MONO % 15.4 % (3.8-10.2); NEUT % 47.6 % (42.8-82.8); PLATELET COUNT 247 K/MM3 (134-434); RBC 4.92 M/mm3 (4.00-5.60); RDW 14.4 % (11.9-15.9); WHITE BLOOD COUNT 6.1 K/mm3 (4.0-10.0)
[2020-09-15 08:41] LABS: PROTHROMBIN TIME (PATIENT) 12.3 SEC (9.7-13.0)
[2020-09-15 09:24] LABS: CALCIUM 8.6 mg/dL (8.5-10.1)
[2020-09-15 09:25] LABS: ALBUMIN 3.5 g/dl (3.4-5.0); BLOOD UREA NITROGEN 16.4 mg/dL (7-18); MAGNESIUM 2.3 mg/dL (1.8-2.4)
[2020-09-15 09:28] LABS: CREATININE 0.9 mg/dL (0.55-1.3); PHOSPHOROUS 3.9 mg/dL (2.5-4.9)
[2020-09-15] MEDS ORDERED: PT OWN MED DRAWER 7, Y5N ONE (09:42)
[2020-09-15] MEDS: FOLIC ACID 1 MG TABLET (FP) PO SCH (09:43)
[2020-09-15] MEDS: THIAMINE HCL 100 MG TABLET (FP) PO SCH (09:44)
[2020-09-15] MEDS: amLODIPine BESYLATE 10 MG TABLET (FP) PO SCH ×2 (09:44)
[2020-09-15] MEDS: LISINOPRIL 20 MG TABLET PO SCH (09:44)
[2020-09-15] MEDS: MULTIVITAMINS (DAILY MVI) TABLET (FP) PO SCH (09:44)
[2020-09-15] MEDS: ENOXAPARIN NA (PORCINE) 40 MG/0.4 ML DISP.SYRIN SQ SCH (09:46)
[2020-09-16] MEDS ORDERED: PT OWN MED DRAWER 7, Y5N ONE (09:10)
[2020-09-16] MEDS: FOLIC ACID 1 MG TABLET (FP) PO SCH (09:14)
[2020-09-16] MEDS: amLODIPine BESYLATE 10 MG TABLET (FP) PO SCH ×2 (09:14→09:15)
[2020-09-16] MEDS: THIAMINE HCL 100 MG TABLET (FP) PO SCH (09:15)
[2020-09-16] MEDS: MULTIVITAMINS (DAILY MVI) TABLET (FP) PO SCH (09:15)
[2020-09-16] MEDS: ENOXAPARIN NA (PORCINE) 40 MG/0.4 ML DISP.SYRIN SQ SCH (09:15)
[2020-09-16] MEDS: LISINOPRIL 20 MG TABLET PO SCH (09:15)
[2020-09-17 08:15] LABS: BASO % 0.4 % (0-2.0); EOS % 1.1 % (0-4.5); HEMATOCRIT 41.8 % (35.4-49); HEMOGLOBIN 14.3 GM/dL (11.7-16.9); LYMPH % 34.5 % (8-40); MCH 29.4 pg (25.7-33.7); MCHC 34.2 g/dl (32.0-35.9); MEAN CELL VOLUME 86.1 fl (80-96); MEAN PLT VOLUME 8.9 fl (7.5-11.1); MONO % 14.8 % (3.8-10.2); NEUT % 49.2 % (42.8-82.8); PLATELET COUNT 229 K/MM3 (134-434); RBC 4.86 M/mm3 (4.00-5.60); RDW 14.1 % (11.9-15.9)
[2020-09-17 08:30] LABS: ALBUMIN 3.3 g/dl (3.4-5.0); CALCIUM 8.9 mg/dL (8.5-10.1)
[2020-09-17 08:31] LABS: BILIRUBIN,TOTAL 0.5 mg/dL (0.2-1); TOT PROT 7.1 g/dl (6.4-8.2)
[2020-09-17 08:33] LABS: CREATININE 0.9 mg/dL (0.55-1.3)
[2020-09-17] MEDS: THIAMINE HCL 100 MG TABLET (FP) PO SCH ×2 (09:53→21:11)
[2020-09-17] MEDS: ENOXAPARIN NA (PORCINE) 40 MG/0.4 ML DISP.SYRIN SQ SCH (09:53)
[2020-09-17] MEDS: FOLIC ACID 1 MG TABLET (FP) PO SCH (09:53)
[2020-09-17] MEDS: LISINOPRIL 20 MG TABLET PO SCH ×2 (09:53→21:11)
[2020-09-17] MEDS: amLODIPine BESYLATE 10 MG TABLET (FP) PO SCH ×2 (09:53→12:53)
[2020-09-17] MEDS: MULTIVITAMINS (DAILY MVI) TABLET (FP) PO SCH (09:53)
[2020-09-17] MEDS ORDERED: ACETAMINOPHEN 325 MG TABLET (FP) PO ONE (20:08)
[2020-09-17] MEDS: LACTULOSE 20 GM/30 ML UDC (FOR ORAL USE ONLY) PO SCH (21:11)
[2020-09-18] MEDS: LACTULOSE 20 GM/30 ML UDC (FOR ORAL USE ONLY) PO SCH ×3 (05:25→21:25)
[2020-09-18 08:09] LABS: BASO % 0.5 % (0-2.0); EOS % 1.1 % (0-4.5); HEMOGLOBIN 14.7 GM/dL (11.7-16.9); LYMPH % 33.2 % (8-40); MCH 28.8 pg (25.7-33.7); MCHC 33.3 g/dl (32.0-35.9); MEAN CELL VOLUME 86.5 fl (80-96); MEAN PLT VOLUME 9.5 fl (7.5-11.1); MONO % 14.8 % (3.8-10.2); NEUT % 50.4 % (42.8-82.8); PLATELET COUNT 239 K/MM3 (134-434); RBC 5.09 M/mm3 (4.00-5.60); RDW 14.5 % (11.9-15.9); WHITE BLOOD COUNT 5.8 K/mm3 (4.0-10.0)
[2020-09-18 08:42] LABS: ALBUMIN 3.7 g/dl (3.4-5.0); BILIRUBIN,DIRECT 0.2 mg/dL (0.0-0.2); BLOOD UREA NITROGEN 16.5 mg/dL (7-18)
[2020-09-18 08:43] LABS: CALCIUM 9.1 mg/dL (8.5-10.1); MAGNESIUM 2.4 mg/dL (1.8-2.4)
[2020-09-18 08:45] LABS: CREATININE 0.9 mg/dL (0.55-1.3); PHOSPHOROUS 4.4 mg/dL (2.5-4.9)
[2020-09-18 08:46] LABS: BILIRUBIN,TOTAL 0.7 mg/dL (0.2-1); TOT PROT 7.7 g/dl (6.4-8.2)
[2020-09-18] MEDS: ENOXAPARIN NA (PORCINE) 40 MG/0.4 ML DISP.SYRIN SQ SCH (11:26)
[2020-09-18] MEDS: LISINOPRIL 20 MG TABLET PO SCH ×2 (11:27→21:25)
[2020-09-18] MEDS: amLODIPine BESYLATE 10 MG TABLET (FP) PO SCH (11:27)
[2020-09-18] MEDS: FOLIC ACID 1 MG TABLET (FP) PO SCH (11:27)
[2020-09-18] MEDS: THIAMINE HCL 100 MG TABLET (FP) PO SCH ×2 (11:27→21:25)
[2020-09-18] MEDS: MULTIVITAMINS (DAILY MVI) TABLET (FP) PO SCH (11:27)
[2020-09-18] MEDS ORDERED: RIFAXIMIN 550 MG TABLET (UD) PO SCH (12:30)
[2020-09-19] MEDS: LACTULOSE 20 GM/30 ML UDC (FOR ORAL USE ONLY) PO SCH ×3 (05:51→22:00)
[2020-09-19 09:35] LABS: BASO % 0.5 % (0-2.0); EOS % 1.2 % (0-4.5); HEMATOCRIT 44.7 % (35.4-49); HEMOGLOBIN 15.1 GM/dL (11.7-16.9); LYMPH % 32.1 % (8-40); MCHC 33.7 g/dl (32.0-35.9); MEAN CELL VOLUME 86.1 fl (80-96); MEAN PLT VOLUME 9.2 fl (7.5-11.1); NEUT % 53.2 % (42.8-82.8); PLATELET COUNT 263 K/MM3 (134-434); RBC 5.19 M/mm3 (4.00-5.60); RDW 14.3 % (11.9-15.9); WHITE BLOOD COUNT 6.6 K/mm3 (4.0-10.0)
[2020-09-19 10:01] LABS: CALCIUM 9.3 mg/dL (8.5-10.1)
[2020-09-19 10:02] LABS: ALBUMIN 3.9 g/dl (3.4-5.0); BLOOD UREA NITROGEN 13.9 mg/dL (7-18); MAGNESIUM 2.3 mg/dL (1.8-2.4)
[2020-09-19 10:05] LABS: PHOSPHOROUS 4.6 mg/dL (2.5-4.9)
[2020-09-19] MEDS ORDERED: PT OWN MED DRAWER 7, Y5N ONE (10:06)
[2020-09-19] MEDS: LISINOPRIL 20 MG TABLET PO SCH ×2 (10:09→22:01)
[2020-09-19] MEDS: FOLIC ACID 1 MG TABLET (FP) PO SCH (10:09)
[2020-09-19] MEDS: amLODIPine BESYLATE 10 MG TABLET (FP) PO SCH (10:09)
[2020-09-19] MEDS: MULTIVITAMINS (DAILY MVI) TABLET (FP) PO SCH (10:10)
[2020-09-19] MEDS: THIAMINE HCL 100 MG TABLET (FP) PO SCH ×2 (10:10→22:01)
[2020-09-19] MEDS: ENOXAPARIN NA (PORCINE) 40 MG/0.4 ML DISP.SYRIN SQ SCH (10:10)
[2020-09-20] MEDS: LACTULOSE 20 GM/30 ML UDC (FOR ORAL USE ONLY) PO SCH ×3 (06:53→21:40)
[2020-09-20 08:35] LABS: BASO % 0.4 % (0-2.0); EOS % 1.3 % (0-4.5); HEMOGLOBIN 14.4 GM/dL (11.7-16.9); LYMPH % 30.7 % (8-40); MCH 28.7 pg (25.7-33.7); MCHC 32.8 g/dl (32.0-35.9); MEAN CELL VOLUME 87.4 fl (80-96); MEAN PLT VOLUME 9.4 fl (7.5-11.1); MONO % 13.4 % (3.8-10.2); NEUT % 54.2 % (42.8-82.8); PLATELET COUNT 230 K/MM3 (134-434); RBC 5.03 M/mm3 (4.00-5.60); RDW 14.5 % (11.9-15.9); WHITE BLOOD COUNT 6.3 K/mm3 (4.0-10.0)
[2020-09-20 09:01] LABS: BILIRUBIN,TOTAL 0.4 mg/dL (0.2-1)
[2020-09-20 09:04] LABS: CALCIUM 9.1 mg/dL (8.5-10.1)
[2020-09-20 09:05] LABS: ALBUMIN 3.6 g/dl (3.4-5.0); BLOOD UREA NITROGEN 17.2 mg/dL (7-18); MAGNESIUM 2.2 mg/dL (1.8-2.4)
[2020-09-20 09:07] LABS: PHOSPHOROUS 4.7 mg/dL (2.5-4.9)
[2020-09-20 09:11] LABS: TOT PROT 7.4 g/dl (6.4-8.2)
[2020-09-20] MEDS: ENOXAPARIN NA (PORCINE) 40 MG/0.4 ML DISP.SYRIN SQ SCH (09:58)
[2020-09-20] MEDS: amLODIPine BESYLATE 10 MG TABLET (FP) PO SCH (09:58)
[2020-09-20] MEDS: FOLIC ACID 1 MG TABLET (FP) PO SCH (09:58)
[2020-09-20] MEDS: THIAMINE HCL 100 MG TABLET (FP) PO SCH ×2 (09:58→21:39)
[2020-09-20] MEDS: LISINOPRIL 20 MG TABLET PO SCH ×2 (09:58→21:40)
[2020-09-20] MEDS: MULTIVITAMINS (DAILY MVI) TABLET (FP) PO SCH (09:58)
[2020-09-20 20:07] LABS: SARS-CoV-2 NAA Not Detected (Not Detected)
[2020-09-20] MEDS: risperiDONE 0.5 MG TABLET PO SCH (21:39)
[2020-09-21] MEDS: LACTULOSE 20 GM/30 ML UDC (FOR ORAL USE ONLY) PO SCH ×3 (07:06→21:00)
[2020-09-21 08:15] LABS: BASO % 0.8 % (0-2.0); EOS % 1.3 % (0-4.5); HEMATOCRIT 41.6 % (35.4-49); HEMOGLOBIN 13.9 GM/dL (11.7-16.9); LYMPH % 27.7 % (8-40); MCH 28.8 pg (25.7-33.7); MCHC 33.3 g/dl (32.0-35.9); MEAN CELL VOLUME 86.4 fl (80-96); MEAN PLT VOLUME 9.2 fl (7.5-11.1); MONO % 10.5 % (3.8-10.2); NEUT % 59.7 % (42.8-82.8); PLATELET COUNT 213 K/MM3 (134-434); RBC 4.82 M/mm3 (4.00-5.60); RDW 14.4 % (11.9-15.9); WHITE BLOOD COUNT 6.2 K/mm3 (4.0-10.0)
[2020-09-21 08:47] LABS: CALCIUM 8.9 mg/dL (8.5-10.1)
[2020-09-21 08:48] LABS: ALBUMIN 3.6 g/dl (3.4-5.0); BLOOD UREA NITROGEN 13.2 mg/dL (7-18); MAGNESIUM 2.1 mg/dL (1.8-2.4)
[2020-09-21 08:52] LABS: CREATININE 0.9 mg/dL (0.55-1.3)
[2020-09-21 08:53] LABS: BILIRUBIN,TOTAL 0.5 mg/dL (0.2-1); TOT PROT 7.2 g/dl (6.4-8.2)
[2020-09-21] MEDS: ENOXAPARIN NA (PORCINE) 40 MG/0.4 ML DISP.SYRIN SQ SCH (09:16)
[2020-09-21] MEDS: MULTIVITAMINS (DAILY MVI) TABLET (FP) PO SCH (09:16)
[2020-09-21] MEDS: amLODIPine BESYLATE 10 MG TABLET (FP) PO SCH (09:16)
[2020-09-21] MEDS: THIAMINE HCL 100 MG TABLET (FP) PO SCH ×2 (09:16→21:00)
[2020-09-21] MEDS: LISINOPRIL 20 MG TABLET PO SCH ×2 (09:16→21:00)
[2020-09-21] MEDS: risperiDONE 0.5 MG TABLET PO SCH ×2 (09:16→21:00)
[2020-09-21] MEDS: FOLIC ACID 1 MG TABLET (FP) PO SCH (09:16)
[2020-09-21 13:10] LABS: EPI CELLS 11 /uL (0-25.1); HYALINE CASTS 1 /uL (0-3.1); PH,URINE 5.5 (5.0-8.0); URINE APPEARANCE CLEAR; URINE BACTERIA 664 /uL (0-1359); URINE BILIRUBIN NEGATIVE (NEGATIVE); URINE COLOR YELLOW; URINE GLUCOSE (UA) NEGATIVE (NEGATIVE); URINE KETONE NEGATIVE (NEGATIVE); URINE LEUK ESTERASE TRACE (NEGATIVE); URINE NITRITE NEGATIVE (NEGATIVE); URINE PROTEIN NEGATIVE (NEGATIVE); URINE RBC 5 /uL (0-23.9); URINE WBC 55 /uL (0-25.8)
[2020-09-21] MEDS ORDERED: DEXTROSE 5%-WATER - 50 ML IVPB ONE (17:05)
[2020-09-21] MEDS ORDERED: cefTRIAXone SODIUM 1 GM VIAL ONE (17:05)
[2020-09-21] MEDS: CEFTRIAXONE 1 GM in DEXTROSE 5%-WATER - 50 ML IVPB SCH (17:23)
[2020-09-22] MEDS: LACTULOSE 20 GM/30 ML UDC (FOR ORAL USE ONLY) PO SCH ×3 (06:02→21:40)
[2020-09-22 07:38] LABS: BASO % 0.6 % (0-2.0); EOS % 1.3 % (0-4.5); HEMATOCRIT 41.4 % (35.4-49); HEMOGLOBIN 13.9 GM/dL (11.7-16.9); MCH 28.9 pg (25.7-33.7); MCHC 33.6 g/dl (32.0-35.9); MEAN CELL VOLUME 86.1 fl (80-96); MONO % 12.3 % (3.8-10.2); NEUT % 56.8 % (42.8-82.8); PLATELET COUNT 215 K/MM3 (134-434); RBC 4.82 M/mm3 (4.00-5.60); RDW 14.4 % (11.9-15.9); WHITE BLOOD COUNT 6.3 K/mm3 (4.0-10.0)
[2020-09-22 08:00] LABS: ALBUMIN 3.6 g/dl (3.4-5.0); BLOOD UREA NITROGEN 12.5 mg/dL (7-18); MAGNESIUM 2.1 mg/dL (1.8-2.4)
[2020-09-22 08:03] LABS: CREATININE 0.9 mg/dL (0.55-1.3)
[2020-09-22 08:04] LABS: BILIRUBIN,TOTAL 0.5 mg/dL (0.2-1); TOT PROT 7.2 g/dl (6.4-8.2)
[2020-09-22] MEDS ORDERED: DEXTROSE 5%-WATER - 50 ML IVPB ONE (10:16)
[2020-09-22] MEDS ORDERED: cefTRIAXone SODIUM 1 GM VIAL ONE (10:16)
[2020-09-22] MEDS: LISINOPRIL 20 MG TABLET PO SCH ×2 (10:19→21:40)
[2020-09-22] MEDS: CEFTRIAXONE 1 GM in DEXTROSE 5%-WATER - 50 ML IVPB SCH (10:19)
[2020-09-22] MEDS: FOLIC ACID 1 MG TABLET (FP) PO SCH (10:19)
[2020-09-22] MEDS: risperiDONE 0.5 MG TABLET PO SCH ×2 (10:19→21:40)
[2020-09-22] MEDS: MULTIVITAMINS (DAILY MVI) TABLET (FP) PO SCH (10:19)
[2020-09-22] MEDS: THIAMINE HCL 100 MG TABLET (FP) PO SCH ×2 (10:19→21:40)
[2020-09-22] MEDS: ENOXAPARIN NA (PORCINE) 40 MG/0.4 ML DISP.SYRIN SQ SCH (10:19)
[2020-09-22] MEDS: amLODIPine BESYLATE 10 MG TABLET (FP) PO SCH (10:19)
[2020-09-22 15:42] VITALS: BP 114/92; PULSE 87; TEMP 98.4
== END 2020-09-22 22:15 | DRG 423 ==
LOC: JER 03:02 → JERBED 06:09 → J8W 11:58
PROVIDERS: ADMIT Hospitalist; ATTEND Internal Medicine
DX: E72.20 Disorder of urea cycle metabolism, unspecified (principal); G93.41 Metabolic encephalopathy; F05 Delirium due to known physiological condition; F32.9 Major depressive disorder, single episode, unspecified; E78.5 Hyperlipidemia, unspecified; G40.909 Epilepsy, unspecified, not intractable, without status epilepticus; I16.0 Hypertensive urgency; F10.20 Alcohol dependence, uncomplicated; R44.1 Visual hallucinations
CPT/HCPCS: 36415; 70450-TC; 71045-TC-FY; 72125-TC; 80053; 81003; 82140; 82248; 82962; 83690; 83735; 84100; 84484; 85025; 85610; 85730; 87086; 93005; 93010; 93306-TC; 97116-GP; 97162-GP; 99285-25; C9803; U0003; U0005